=== PATIENT | male | born 1945 | race Caucasian/White ===

== ENCOUNTER 2021-12-21 11:42 | Emergency (ER) | payer OTHER ==
--- OUTSIDE RECORDS SUMMARY | 2021-12-21 11:49 | XMS REPORT | Continuity of Care Document ---
:1945 Author Organization [facility] t Address [address] [place] [address] Care Team Providers Name Role Phone Carson Gonzales Attending Clinician Unavailable Carson Gonzales Admitting Clinician Unavailable Physician, Primary or Family Admitting Clinician Unavailabl e Payers Payer Name Policy Type Policy Number Effective Date Expiration Date S ource Problems This patient has no known problems. Allergies, Adverse Reactions, Alerts Allergy Allergy Status Severity Reaction(s) Onset Inactive Treating Comm ents Source Name Type Date Date Clinician No Known DA Active U 2019-10 [facility]- [facility] 00:00: [address] No Known DA Active U 2019-10 [facility] 12-05 [facility] 00:00: [address] No Known DA Active U [facility]- [facility] 00[facility]00: [facility] No Known DA Active U [facility]- [facility] 00:00: [facility] Medications This patient has no known medications. Procedures Procedure Date / Time Performed Performing Clinician [facility] jose roberto [id number] 2020-10-07 00:00:00 GEORGIE.Magalis [facility] Or [facility] Encounters Start End Encounter Admission Attending Care Care Encounter Source Date/Time Date/Time Type Type Clinicians Facility Department ID 2020-10-07 Inpatient Rina NelsonTO ADMI [id number] [facility] 13:30:00 [id number] [facility] 2020-10-04 2020-10-04 Outpatient Rina GonzalesWU REFE [id number] [facility] 18:10:00 18:10:00 [id number] [facility] 2020-10-04 2020-10-04 Outpatient Rina Gonzales HCACL LABO [id number]- [facility] 18:03:00 18:03:00 [id number] [facility] 2020-10-04 2020-10-04 Outpatient Rina Gonzales HCATO SURG 805- [facility] 13:30:00 13:30:00 [id number] [facility] Results Test Description Test Time Test Comments Results Result [facility] e Comments - XR KNEE 1 OR 2 V 2020-10-10 LT 09:26:00 [facility] 1945 Sex: M Patient Name: KENY LAL Unit No: [id number] EXAMS: CPT CODE: [id number] XR KNEE 1 OR 2 V LT 17511 LEFT KNEE 2 VIEWS PORTABLE COMMENT: The patient is status post joint replacement which is articulating normally. at 0926 Reported and signed by: Omar Hall MD CC: Rina Gonzales MD Technologist: NALDO JOHNSON. RT(R) Transcribed D/ (925) Agnieszka [facility] NAME: KENY LAL [address] [facility] PHYS: PATAN.06 - Rina oGnzales : 1945 AGE: 75 SEX: M [place], [place] [address] LOC: YEvensO19 A PHONE #: [phone] EXAM DATE: 10/07/2020 STATUS: DIS IN FAX #: [phone] RAD #: D/C DT 10/07/2020 PAGE 1 Signed Report Patient Name: KENY LAL Unit No: [id number] EXAMS: CPT CODE: [id number] XR KNEE 1 [place] 2 [place] [address] <Continued> Orig Print D/T: S: 10/10/2020 (0929) [facility] NAME: KENY LAL [address] [facility] PHYS: PATAN.06 - Gonzales,Rina Byrd : 1945 AGE: 75 SEX: M [place], [place] [address] LOC: Y.O19 A PHONE #: [phone] EXAM DATE: 10/07/2020 STATUS: DIS IN FAX #: [phone] RAD #: D/C DT 10/07/2020 PAGE 2 Signed Report GLUBED 2020-10-07 10:02:00 Test Item Value Reference Range Interpretation Comme nts GLUBED (test code = GLUBED) 181 mg/dL 60-125 H Novel Coronavirus 2018 [id number] 07:39:00 Test Item Value Reference Range Interpretation Comments Novel Coronavirus Negative Negative Positive r esults are 2019 Inhouse (test indicativ e of the presence code = COVNONPUI) ofSARS-CoV -2 RNA, clinical correlation wit h patient historyand othe r diagnostic info rmation is necessary to determinepatien t infection status. Positiv e results do not rule out bacterial infection or co -infection with other viru ses. Negative result s do not preclude SARS-C oV-2 infection andsh ould not be used as the tony e basis for patient managementdecis ions. Negative result s must be combined with otherclinical observations, p atient history, and epidemiological information . Detection of SARS-CoV-2 RNA may be affe cted bysample collec tion methods, storag e conditions, and /or stageof infection. Daja l RNA mutations, vacc inations, antiviraltherap eutics, antibiotics, chemotherapeuti c orimmunosuppres martin drugs have not been e valuated for effectson d etection. Results are for the identification of SARS-CoV-2 RNA usingthe Duncan M2000 Sy stem under the FDA Emergen cy UseAuthorizatio n. The testing is perf ormed by personneltraine d in the procedures for the Duncan M2000 molecular diagnostic SARS-CoV-2 assa y in vitro. SPECIMEN COMMENT: NNovel Coronavirus 2019 [id number] 07:39:00 Test Item Value Reference Range Interpretation Comments Novel Coronavirus Negative Negative Positive r esults are 2019 Inhouse (test indicativ e of the presence code = COVNONPUI) ofSARS-CoV -2 RNA, clinical correlation wit h patient historyand othe r diagnostic info rmation is necessary to determinepatien t infection status. Positiv e results do not rule out bacterial infection or co -infection with other viru ses. Negative result s do not preclude SARS-C oV-2 infection andsh ould not be used as the tony e basis for patient managementdecis ions. Negative result s must be combined with otherclinical observations, p atient history, and epidemiological information . Detection of SARS-CoV-2 RNA may be affe cted bysample collec tion methods, storag e conditions, and /or stageof infection. Daja l RNA mutations, vacc inations, antiviraltherap eutics, antibiotics, chemotherapeuti c orimmunosuppres martin drugs have not been e valuated for effectson d etection. Results are for the identification of SARS-CoV-2 RNA usingthe Duncan M2000 Sy stem under the FDA Emergen cy UseAuthorizatio n. The testing is perf ormed by personneltraine d in the procedures for the Duncan M2000 molecular diagnostic SARS-CoV-2 assa y in vitro. SPECIMEN COMMENT: NGLYCOSYLATED HEMOGLOBIN (HA1C)2020-10-04 20:13:00 Test Item Value Reference Range Interpretation Comments GLYCOSYLATED 8.0 % 4.8-5.9 H Any condition t hat shortens HEMOGLOBIN (HA1C) erythocyte survival or (test code = GLYHGB) decreas esmean erythrocyte age (e.g., frandy very from acute blood los s,hemolytic anemai) will fa lsely lower HGBA1c resultsr egardless of the method used . HGBA1c results frompat ients with HbSS, HbCC and HbSc must be interpreted wit hcaution given the patho logical processes, incl uding anemia,increase d red cell turnover, trans fusion requirements, t hatadversely impact HGBA1c a s a marker of long-term glycemiccontrol . Alternative for ms of testing such as fructosaminesho uld be considered for these patients.Any co ndition that shortens erytho cyte survival or dec reasesmean erythrocyte age (e.g., recovery from a cute blood loss,hemolytic anemia) will falsely lower H GBA1c resultsregardle ss of the method used. H GBA1c results from maria isabel wood HbSS, HbCC, and HbSc must be interpreted with cautiongiven th e pathological pr ocesses, including anemi a,increased red cell turnov er, transfusion req uirements, thatadversely i mpact HGBA1c as a marker of long-term glycemiccontrol . Alternative for ms of testing such as fructosaminesho uld be considered for these patients.DONE A T: [facility] [id number] [place] [id number] GLYCOSYLATED HEMOGLOBIN (HA1C)2020-10-04 20:12:00 Test Item Value Reference Range Interpretation Comments GLYCOSYLATED 8.0 % 4.8-5.9 H Any condition t hat shortens HEMOGLOBIN (HA1C) erythocyte survival or (test code = GLYHGB) decreas esmean erythrocyte age (e.g., frandy very from acute blood los s,hemolytic anemia) will fa lsely lower HGBA1c resultsr egardless of the method used . HGBA1c results from maria isabel wood HbSS, HbCC, and HbSc must be interpreted with cautiongiven th e pathological pr ocesses, including anemi a,increased red cell turnov er, transfusion req uirements, thatadversely i mpact HGBA1c as a marker of long-term glycemiccontrol . Alternative for ms of testing such as fructosaminesho uld be considered for these patients. COMPREHENSIVE METABOLIC [id number] 16:22:00 Test Item Value Reference Range Interpretation Comments SODIUM (test code = 136 mmol/L 136-145 N NA) POTASSIUM (test code = 4.4 mmol/L 3.5-5.1 N K) CHLORIDE (test code = 100.0 mmol/L 98-107 N CL) CARBON DIOXIDE (test 26.5 mmol/L 21-32 N code = CO2) GLUCOSE (test code = 226 mg/dL 70-110 H GLU) BLOOD UREA NITROGEN 21 mg/dL 7-18 H (test code = BUN) GLOMERULAR FILTRATION 54.3 >60 Unit o f measure: RATE (test code = GFR) mL/mi n/1.73 [id number] Range:Healthy Adults >90 mL/min/1.73 m2 For Chronic Kidney Disease: St age II Mild Decrease in GFR 60-90 St age III Moderate Decrease in GFR 30-59 Stage IV Severe Decre ase in GFR 15- 29 Stage V Kidney Failure <15 CREATININE (test code 1.29 mg/dL 0.55-1.30 N = CREAT) TOTAL PROTEIN (test 7.6 g/dL 6.4-8.2 N code = PROT) ALBUMIN (test code = 3.3 g/dL 3.4-5.0 L ALB) GLOBULIN (test code = 4.3 g/dL 2.2-4.2 H GLOB) ALBUMIN/GLOBULIN RATIO 0.8 0.7-2.0 N (test code = A/G) CALCIUM (test code = 8.8 mg/dL 8.2-10.1 N CA) BILIRUBIN TOTAL (test 0.40 mg/dL 0.2-1.00 N code = BILT) SGOT/AST (test code = 28.0 U/L 15-37 N AST) SGPT/ALT (test code = 34.0 U/L 12-78 N Please note new ALT) normal range. ALKALINE PHOSPHATASE 148 U/L 46-116 H TOTAL (test code = ALKP) PROTHROMBIN [id number] 16:05:00 Test Item Value Reference Range Interpretation Comments PROTHROMBIN TIME 11.7 secs 10.1-12.5 N PATIENT (test code = PTP) INTERNATIONAL NORMAL 1.03 <2.0 RECOMME NDED THERAPEUTIC RATIO (test code = RANGE FOR ORAL INR) ANTICOAGULANTTR EATMENT: CONDI TION INRProphylaxis of venous thrombos is in 2.0 - 3.0 high-risk medic al or surgical patientsTreatme nt of venous thrombos is 2.0 - 3.0Prevention o f embolism 2.0 - 3.0Prevention o f recurrent embol ism, or 3.0 - 4. 5 patients with mechanical pros thetic intravascular v peña IS PATIENT ON ANTICOAGULANTS ? YLIST ANTICOAGULANT/ANTI PLT MEDICATION : AspirinHas Lab been notified if Patient is on Heparin Drip? NOTHROMBOPLASTIN TIME [id number] 16:05:00 Test Item Value Reference Range Interpretation Comments PTT ACTIVATED (test code = APTT) 30.0 secs 24.9-37.0 N IS PATIENT ON ANTICOAGULANTS ? YLIST ANTICOAGULANT/ANTI PLT MEDICATION : AspirinHas Lab been notified if Patient is on Heparin Drip? NOCBC W/AUTO DIFF 2020-10-04 15:54:00 Test Item Value Reference Range Interpretation Comments WHITE BLOOD CELL (test code = WBC) 6.9 K/mm3 5.7-10.5 N RED BLOOD CELL (test code = RBC) 4.80 M/mm3 4.2-5.4 N HEMOGLOBIN (test code = HGB) 13.3 g/dL 12-16 N HEMATOCRIT (test code = HCT) 40.2 % 37-47 N MEAN CELL VOLUME (test code = MCV) 84 fL 80-98 N MEAN CELL HGB (test code = MCH) 27.7 pg 27-34 N MEAN CELL HGB CONCENTRATION (test 33.1 g/dL 30.8-34.1 N code = MCHC) RED CELL DISTRIBUTION WIDTH (test 14.6 % 11-16 N code = RDW) PLT (test code = PLT) 281 K/mm3 130-400 N MEAN PLATELET VOLUME (test code = 10.5 fL 8.9-12.1 N MPV) NEUTROPHIL % (test code = NT%) 69.5 % 45-70 N LYMPHOCYTE % (test code = LY%) 13.4 % 20-40 L MONOCYTE % (test code = MO%) 9.8 % 3-10 N EOSINOPHIL % (test code = EO%) 6.1 % 1-5 H BASOPHIL % (test code = BA%) 0.9 % 0.0-1.1 N NEUTROPHIL # (test code = NT#) 4.78 K/mm3 2.00-7.50 N LYMPHOCYTE # (test code = LY#) 0.92 K/mm3 1.50-4.00 L MONOCYTE # (test code = MO#) 0.67 K/mm3 0.2-0.8 N EOSINOPHIL # (test code = EO#) 0.42 K/mm3 0.04-0.4 H BASOPHIL # (test code = BA#) 0.06 K/mm3 0.02-0.10 N MANUAL DIFF REQUIRED (test code = NO MANUAL DIFF MDIFF) NUCLEATED RED BLOOD CELL (test 0 % 0-0 N code = NRBC)
[2021-12-21] MEDS ORDERED: NA CHLORIDE 0.9% 1,000 ML ONE (13:39)
[2021-12-21 13:58] LABS: Absolute Lymphocytes (CBC) 0.6 K/uL (0.7-4.9); Lymphocytes % 5.9 % (15.3-44.8); MPV 7.4 fL (7.6-11.3); RBC Red Blood Cell Count 4.39 M/uL (4.33-5.43)
[2021-12-21 14:06] LABS: Protime INR 1.11
[2021-12-21 14:09] LABS: BUN Blood Urea Nitrogen 37 mg/dL (7-18); Bicarbonate 24 mmol/L (21-32); Glucose Level 196 mg/dL (74-106); Potassium 3.7 mmol/L (3.5-5.1); Sodium Level 135 mmol/L (136-145)
[2021-12-21 14:28] LABS: Urine Blood Negative (Negative); Urine Glucose 3+ (Negative); Urine Protein Negative (Negative); Urine Specific Gravity 1.015 (1.005-1.030)
--- NOTE | 2021-12-21 14:47 | RAD REPORT ---
EXAM DESCRIPTION: US - CP - 12/21/2021 2:00 pm CLINICAL HISTORY: DIZZINESS COMPARISON: No comparisons TECHNIQUE: Real-time sonographic evaluation of bilateral carotid and vertebral systems was performed . [place]banks scale and Doppler interrogation were performed with waveform tracing bilaterally. FINDINGS: Normal high resistance waveforms are noted in both external carotid arteries. The common c arotid arteries and internal carotid arteries show normal low resistance waveforms. Calcified plaquing changes are present in each carotid bulb without visual evidence for significant l uminal narrowing. Peak systolic and end diastolic velocity values and the ICA/CCA ratios are in the n on-hemodynamically significant range. Antegrade flow seen in both vertebral arteries. Velocity values and ratios were recorded and are retained in the patient's imaging records. IMPRESSION: Bilateral carotid bulb calcified plaquing changes without visual evidence for significan t stenosis. Velocity values and ratios also indicate no significant degree of stenosis.
[2021-12-21 15:01] LABS: ALT/SGPT 56 U/L (12-78); AST/SGOT 38 U/L (15-37); Albumin 2.7 g/dL (3.4-5.0); Alkaline Phosphatase 202 U/L (45-117); Bilirubin Total 0.4 mg/dL (0.2-1.0); Lipase 116 U/L (73-393); Magnesium 1.9 mg/dL (1.8-2.4); NT PRO-BNP 65 pg/mL (<450); Protein, Total 7.3 g/dL (6.4-8.2)
[2021-12-21 15:03] LABS: Bilirubin Direct < 0.1 mg/dL (0-0.2)
--- NOTE | 2021-12-21 15:18 | RAD REPORT ---
EXAM DESCRIPTION: RAD - Chest Single View - 12/21/2021 2:31 pm CLINICAL HISTORY: COUGH COMPARISON: Portable January 2017 TECHNIQUE: AP portable chest image was obtained 12/21/2021 2:31 pm . FINDINGS: No consolidation or mass. Interstitial markings are fractionally increased in the right ba se. Differential is minimal and this could be progressive fibrotic change. A minimal right base inter stitial infiltrate is possible and correlation is needed with any exam findings localizing to the bas e. No significant failure or volume overload. Heart and vasculature are normal. No measurable pleural effusion and no pneumothorax. No acute bony abnormality seen. No acute aortic findings suspected. IMPRESSION: Slight increase in interstitial stranding in the right base compared to 2017. Minimal interstitial infiltrate rather than progressive fibrosis would be possible and can be correla shellie with exam findings at the right base.
--- NOTE | 2021-12-21 16:12 | ER ---
Nurse's Notes [facility] Name: Dion Alfonso Age: 76 yrs Sex: Male : 1945 Arrival Date: 12/21/2021 Time: 11:47 Bed 20 Private MD: Diagnosis: Weakness;Type 2 diabetes mellitus with hyperglycemia;Dehydration;Unspecified kidney failure-prerenal , insufficency Presentation: 12/21 11:47 Chief complaint: Patient states: pt present to ED reporting weakness, low blood salomon pressure, low blood sugar. Coronavirus screen: Vaccine status: Patient reports receiving the 2nd dose of the covid vaccine. Ebola Screen: Patient denies travel to an Ebola-affected area in the 21 days before illness onset. Initial Sepsis Screen: Does the patient meet any 2 criteria? No. Patient's initial sepsis screen is negative. Does the patient have a suspected source of infection? No. Patient's initial sepsis screen is negative. Risk Assessment: Do you want to hurt yourself or someone else?. Onset of symptoms was December 21, 2021. 11:47 Method Of Arrival: EMS: [facility] 11:47 Acuity: RG 3 salomon Triage Assessment: 11:50 General: Appears in no apparent distress. Behavior is calm, cooperative. Pain: Denies salomon pain. Historical: - Allergies: 11:50 No Known Allergies; salomon - Home Meds: 11:50 aspirin 81 mg Oral tab [Active]; losartan 100 mg oral tab [Active]; simvastatin 80 mg salomon Oral tab [Active]; metformin 850 mg Oral tab 3 times per day [Active]; glipizide 10 mg Oral tab 2 times per day [Active]; oxybutynin chloride 5 mg Oral tr24 1 tab once daily [Active]; gabapentin 300 mg oral cap 1 cap 3 times per day [Active]; tamsulosin 0.4 mg oral cap 1 cap once daily [Active]; budesonide 180 mcg/actuation inhalation aepb 1 puff 2 times per day [Active]; - PMHx: 11:50 Diabetes - NIDDM; Hypertension; salomon - Immunization history:: Adult Immunizations up to date. - Social history:: Smoking status: Patient denies any tobacco usage or history of. - Family history:: not pertinent. Screenin:59 Abuse screen: Denies threats or abuse. Denies injuries from another. Nutritional salomon screening: No deficits noted. Tuberculosis screening: No symptoms or risk factors identified. Fall Risk IV access (20 points). Assessment: 11:59 General: Appears in no apparent distress. Behavior is calm, cooperative. Pain: Denies salomon pain. Cardiovascular: Reports fatigue. Musculoskeletal: Reports weakness in right arm, left arm, right leg and left leg. Vital Signs: 11:47 BP 98 / 53; Pulse 77; Resp 18; Temp 97.4; Pulse Ox 98% ; Weight 99.79 kg; Height 5 ft. salomon 10 in. (177.80 cm); 12:56 BP 103 / 61; Pulse 73; Resp 18; Pulse Ox 95% on R/A; salomon 14:10 BP 124 / 74; Pulse 68; Resp 18; Pulse Ox 98% on R/A; salomon 15:58 BP 123 / 74; Pulse 70; Resp 18; Pulse Ox 96% on R/A; salomon 16:19 BP 135 / 77 Supine; Pulse 79; Resp 18; Pulse Ox 99% on R/A; salomon 16:19 BP 156 / 76 Sitting; Pulse 89; Resp 18; Pulse Ox 99% on R/A; salomon 16:19 BP 153 / 74 Standing; Pulse 87; Resp 18; Pulse Ox 96% on R/A; salomon 11:47 Body Mass Index 31.57 (99.79 kg, 177.80 cm) salomon ED Course: 11:47 Patient arrived in ED. salomon 11:50 Triage completed. salomon 11:55 Harsha Woodruff MD is Attending Physician. [facility] 11:59 Bed in low position. salomon 11:59 No provider procedures requiring assistance completed. Inserted saline lock: 20 gauge salomon in left forearm, using aseptic technique. 12:00 Arm band placed on right wrist. salomon 13:46 Basic Metabolic Panel Sent. salomon 13:46 CBC with Diff Sent. salomon 13:46 Magnesium Sent. salomon 13:46 LFT's Sent. salomon 13:46 NT PRO-BNP Sent. salomon 13:46 PT-INR Sent. salomon 13:46 Troponin HS Sent. salomon 14:00 US Carotid Artery Bilateral In Process Unspecified. EDMS 14:31 XRAY Chest (1 view) In Process Unspecified. EDMS 16:10 Flo Crane MD is Referral Physician. quirino 16:26 CT Stone Protocol In Process Unspecified. EDMS 17:21 IV discontinued, intact, Pressure dressing applied. salomon Administered Medications: 13:45 Drug: NS 0.9% 1000 ml Route: IV; Rate: 1 bolus; Site: left forearm; salomon Outcome: 16:12 Discharge ordered by . quirino 17:21 Discharged to home salomon 17:21 Condition: good 17:21 Discharge instructions given to patient, family. 17:21 Prescriptions given X 1. 17:22 Patient left the ED. salomon Signatures: Dispatcher [employer] EDMS Harsha Woodruff MD MD cha Au-Stager, Heather, RN RN salomon
--- NOTE | 2021-12-21 16:12 | EDPHYS ---
Physician Documentation [facility] Name: Dion Alfonso Age: 76 yrs Sex: Male : 1945 Arrival Date: 12/21/2021 Time: 11:47 Bed 20 Private MD: ED Physician Harsha Woodruff HPI: 12/21 13:23 This 76 yrs old Male presents to ER via EMS with complaints of dizzy at work, quirino low bp. 13:23 weak, dizzy , low bp at work. The patient presents with dizziness, generalized quirino weakness. Onset: The symptoms/episode began/occurred this morning. Context: occurred at work. Modifying factors: The symptoms are alleviated by lying down, the symptoms are aggravated by standing up. Associated signs and symptoms: The patient has no apparent associated signs or symptoms. Severity of symptoms: At their worst the symptoms were mild in the emergency department the symptoms are unchanged. Onset: The symptoms/episode began/occurred just prior to arrival. Patient's baseline: Neuro: alert and fully oriented. Historical: - Allergies: 11:50 No Known Allergies; salomon - Home Meds: 11:50 aspirin 81 mg Oral tab [Active]; losartan 100 mg oral tab [Active]; simvastatin 80 mg salomon Oral tab [Active]; metformin 850 mg Oral tab 3 times per day [Active]; glipizide 10 mg Oral tab 2 times per day [Active]; oxybutynin chloride 5 mg Oral tr24 1 tab once daily [Active]; gabapentin 300 mg oral cap 1 cap 3 times per day [Active]; tamsulosin 0.4 mg oral cap 1 cap once daily [Active]; budesonide 180 mcg/actuation inhalation aepb 1 puff 2 times per day [Active]; - PMHx: 11:50 Diabetes - NIDDM; Hypertension; salomon - Immunization history:: Adult Immunizations up to date. - Social history:: Smoking status: Patient denies any tobacco usage or history of. - Family history:: not pertinent. ROS: 13:23 Constitutional: Negative for fever, chills, and weight loss, Eyes: Negative for injury, quirino pain, redness, and discharge, ENT: Negative for injury, pain, and discharge, Neck: Negative for injury, pain, and swelling, Cardiovascular: Negative for chest pain, palpitations, and edema, Respiratory: Negative for shortness of breath, cough, wheezing, and pleuritic chest pain, Abdomen/GI: Negative for abdominal pain, nausea, vomiting, diarrhea, and constipation, Back: Negative for injury and pain, : Negative for injury, bleeding, discharge, and swelling, MS/Extremity: Negative for injury and deformity, Skin: Negative for injury, rash, and discoloration, Psych: Negative for depression, anxiety, suicide ideation, homicidal ideation, and hallucinations, Allergy/Immunology: Negative for hives, rash, and allergies, Endocrine: Negative for neck swelling, polydipsia, polyuria, polyphagia, and marked weight changes, Hematologic/Lymphatic: Negative for swollen nodes, abnormal bleeding, and unusual bruising. 13:23 Neuro: Positive for dizziness, near syncope, weakness. Exam: 13:23 Constitutional: This is a well developed, well nourished patient who is awake, alert, quirino and in no acute distress. Head/Face: Normocephalic, atraumatic. Eyes: Pupils equal round and reactive to light, extra-ocular motions intact. Lids and lashes normal. Conjunctiva and sclera are non-icteric and not injected. Cornea within normal limits. Periorbital areas with no swelling, redness, or edema. ENT: Nares patent. No nasal discharge, no septal abnormalities noted. Tympanic membranes are normal and external auditory canals are clear. Oropharynx with no redness, swelling, or masses, exudates, or evidence of obstruction, uvula midline. Mucous membranes moist. Neck: Trachea midline, no thyromegaly or masses palpated, and no cervical lymphadenopathy. Supple, full range of motion without nuchal rigidity, or vertebral point tenderness. No Meningismus. Chest/axilla: Normal chest wall appearance and motion. Nontender with no deformity. No lesions are appreciated. Cardiovascular: Regular rate and rhythm with a normal S1 and S2. No gallops, murmurs, or rubs. Normal PMI, no JVD. No pulse deficits. Respiratory: Lungs have equal breath sounds bilaterally, clear to auscultation and percussion. No rales, rhonchi or wheezes noted. No increased work of breathing, no retractions or nasal flaring. Abdomen/GI: Soft, non-tender, with normal bowel sounds. No distension or tympany. No guarding or rebound. No evidence of tenderness throughout. Back: No spinal tenderness. No costovertebral tenderness. Full range of motion. Male : Normal genitalia with no discharge or lesions. Skin: Warm, dry with normal turgor. Normal color with no rashes, no lesions, and no evidence of cellulitis. MS/ Extremity: Pulses equal, no cyanosis. Neurovascular intact. Full, normal range of motion. Neuro: Awake and alert, GCS 15, oriented to person, place, time, and situation. Cranial nerves II-XII grossly intact. Motor strength 5/5 in all extremities. Sensory grossly intact. Cerebellar exam normal. Normal gait. Psych: Awake, alert, with orientation to person, place and time. Behavior, mood, and affect are within normal limits. 16:50 Abdomen/GI: Inspection: abdomen appears normal, Bowel sounds: normal, Palpation: quirino abdomen is soft and non-tender, Rectal exam: Stool: guaiac negative, hemorrhoid(s), are not appreciated, mass, is not appreciated, swelling, is not appreciated, tenderness, is not appreciated, fecal impaction, is not appreciated, Liver: no appreciated palpable abnormalities, Hernia: not appreciated. Vital Signs: 11:47 BP 98 / 53; Pulse 77; Resp 18; Temp 97.4; Pulse Ox 98% ; Weight 99.79 kg; Height 5 ft. salomon 10 in. (177.80 cm); 12:56 BP 103 / 61; Pulse 73; Resp 18; Pulse Ox 95% on R/A; salomon 14:10 BP 124 / 74; Pulse 68; Resp 18; Pulse Ox 98% on R/A; salomon 15:58 BP 123 / 74; Pulse 70; Resp 18; Pulse Ox 96% on R/A; salomon 16:19 BP 135 / 77 Supine; Pulse 79; Resp 18; Pulse Ox 99% on R/A; salomon 16:19 BP 156 / 76 Sitting; Pulse 89; Resp 18; Pulse Ox 99% on R/A; salomon 16:19 BP 153 / 74 Standing; Pulse 87; Resp 18; Pulse Ox 96% on R/A; salomon 11:47 Body Mass Index 31.57 (99.79 kg, 177.80 cm) salomon MDM: 11:55 Patient medically screened. quirino 13:27 Differential diagnosis: cardiac arrhythmia, CVA, generalized weakness, hypovolemia, quirino idiopathic dizziness. Data reviewed: vital signs, nurses notes, lab test result(s), EKG, radiologic studies, CT scan, plain films. Data interpreted: monitoring coordinator: rate is 73 beats/min, rhythm is regular, Pulse oximetry: on room air is 95 %. Test interpretation: by ED physician or midlevel provider: ECG, plain radiologic studies. Counseling: I had a detailed discussion with the patient and/or guardian regarding: the historical points, exam findings, and any diagnostic results supporting the discharge/admit diagnosis, lab results, radiology results. 12/21 13:17 Order name: Basic Metabolic Panel; Complete Time: 16:02 [facility] 12/21 13:17 Order name: CBC with Diff; Complete Time: 14:50 [facility] 12/21 13:17 Order name: LFT's; Complete Time: 16:02 [facility] 12/21 13:17 Order name: Magnesium; Complete Time: 16:02 [facility] 12/21 13:17 Order name: NT PRO-BNP; Complete Time: 16:02 [facility] 12/21 13:17 Order name: PT-INR; Complete Time: 14:50 [facility] 12/21 13:17 Order name: Troponin HS; Complete Time: 16:02 [facility] 12/21 13:17 Order name: XRAY Chest (1 view); Complete Time: 16:02 [facility] 12/21 13:17 Order name: EKG; Complete Time: 13:18 [facility] 12/21 13:17 Order name: Lipase; Complete Time: 16:02 [facility] 12/21 13:17 Order name: US Carotid Artery Bilateral; Complete Time: 14:50 [facility] 12/21 14:28 Order name: Urine Dipstick-Ancillary; Complete Time: 14:50 [facility] 12/21 16:10 Order name: CT Stone Protocol [facility] 12/21 13:17 Order name: Cardiac monitoring; Complete Time: 13:45 [facility] 12/21 13:17 Order name: EKG - Nurse/Tech; Complete Time: 14:27 quirino 12/21 13:17 Order name: IV Saline Lock; Complete Time: 13:45 quirino 12/21 13:17 Order name: Labs collected and sent; Complete Time: 13:46 quirino 12/21 13:17 Order name: O2 Per Protocol; Complete Time: 13:46 quirino 12/21 13:17 Order name: O2 Sat Monitoring; Complete Time: 13:46 [facility] 12/21 13:17 Order name: Urine Dipstick-Ancillary (obtain specimen); Complete Time: 14:27 [facility] 12/21 16:10 Order name: Orthostatics [facility] 12/21 16:10 Order name: PO challenge quirino Administered Medications: 13:45 Drug: NS 0.9% 1000 ml Route: IV; Rate: 1 bolus; Site: left forearm; salomon Disposition Summary: 12/21/21 16:12 Discharge Ordered Location: Home quirino Problem: new quirino Symptoms: have improved quirino Condition: Stable quirino Diagnosis - Weakness quirino - Type 2 diabetes mellitus with hyperglycemia quirino - Dehydration quirino - Unspecified kidney failure - prerenal , insufficency quirino Followup: quirino - With: Private Physician - When: 2 - 3 days - Reason: Recheck today's complaints, Continuance of care, Re-evaluation by your physician Followup: quirino - With: Flo Crane MD - When: 2 - 3 days - Reason: Recheck today's complaints, Continuance of care, Re-evaluation by your physician Discharge Instructions: - Discharge Summary Sheet quirino - Dehydration, Elderly quirino - Dehydration, Adult quirino - Type 2 Diabetes Mellitus, Diagnosis, Adult quirino - Hyperglycemia quirino - Near-Syncope quirino - Weakness quirino - Fatigue quirino - Weakness, Mibh-pu-Lcit [facility] Forms: - Medication Reconciliation Form [facility] - Thank You Letter quirino - Antibiotic Education quirino - Prescription Opioid Use [facility] - Work release form salomon Prescriptions: - tamsulosin 0.4 mg Oral capsule - take 1 capsule by ORAL route At bedtime 1/2 hour following the same meal each quirino day; 30 capsule; Refills: 0, Product Selection Permitted Signatures: Dispatcher [employer] Harsha Caban MD MD [facility] Sybil Sierra RN JESUS
--- NOTE | 2021-12-21 17:02 | RAD REPORT ---
EXAM DESCRIPTION: CT - Stone Protocol - 12/21/2021 4:27 pm CLINICAL HISTORY: FLANK PAIN Abdominal pain COMPARISON: Abdomen Pelvis Wo Contrast dated 02/13/2017 TECHNIQUE: Axial [address] imaging of the abdomen and pelvis was performed without IV contrast. No IV contrast was given because of allergy, abnormal renal function, patient refusal or physician re quest. No oral contrast administered. All CT scans are performed using dose optimization technique as appropriate and may include automated exposure control or mA/KV adjustment according to patient size. FINDINGS: Scarring changes are present in each lung base, more so on the right. A 5 mm noncalcified nodule posterior right lower lung field has not change from 2017. Liver is prominent in size with no overall size change since 2017. Subtle nodularity of the liver cap jose is noted. No focal lesions seen on noncontrast imaging. Spleen and pancreas show no suspicious f indings. A few punctate gallstones are seen along the dependent portion the gallbladder. No wall thic kening or edema suspected. No biliary tree abnormality identified. No hydronephrosis or suspicious renal mass. No obstructing or nonobstructing calculi. Mild bilateral perinephric stranding matches comparison. No significant adrenal finding. Isodense renal masses and p yelonephritis cannot be excluded in the absence of IV contrast. The urinary bladder is without signif icant finding. No dilated bowel loops or bowel wall thickening. Moderate stool volume present filling but not dilati ng the colon from cecum to sigmoid colon. Distal rectum is mostly decompressed. The appendix is brian l. No free air, free fluid or inflammatory stranding. No mass or bulky lymphadenopathy. Fatty inguina l canals match comparison. Disc and bone degenerative changes are present. No acute disc or bone finding. IMPRESSION: Non-contrast enhanced CT abdomen and pelvis imaging show no acute or emergent finding. Patient has minimal cholelithiasis without evidence for cholecystitis or biliary dilatation. No significant changes from 2017 Full assessment is limited is the absence of IV contrast.
[2021-12-21 18:38] VITALS: TEMP 97.4
[2021-12-21 18:42] VITALS: O2SAT 96
[2021-12-21 18:44] VITALS: BP 153/74
--- NOTE | 2021-12-22 11:32 | EKG ---
Test Date: 2021-12-21 Test Time: 14:29:59 Side Show Entertainer: TERI MEASUREMENT RESULTS: Intervals: Rate: 76 SD: 150 QRSD: 82 QT: 404 QTc: 454 Velva: P: 23 SD: 150 QRS: 60 T: 9 INTERPRETIVE STATEMENTS: Normal sinus rhythm Normal ECG Compared to ECG 02/14/2017 08:13:26 Sinus bradycardia no longer present Electronically Signed On 12-22-21 11:29:11 MOBILITY ARCHITECT MANAGER by Flo Crane
== END 2021-12-21 17:22 | disposition home or self-care (01) ==
LOC: ER 11:42
DX: E11.65 Type 2 diabetes mellitus with hyperglycemia (principal); E86.0 Dehydration; N19 Unspecified kidney failure; R53.1 Weakness; I10 Essential (primary) hypertension; Z79.82 Long term (current) use of aspirin
CPT/HCPCS: 93005; 85025; 80048; 36415; 83735; 85610; 80076; 81003; 84484; 83690; 83880; 76377; 74176; 71045; 93880; 99284; J7030

== ENCOUNTER 2021-12-24 12:05 | Emergency (ER) | payer OTHER ==
--- OUTSIDE RECORDS SUMMARY | 2021-12-24 12:08 | XMS REPORT | Continuity of Care Document ---
:1945 Author Organization [facility] t Address [address] [place] [address] Care Team Providers Name Role Phone Carson [...] DA Active U 2019-10 [facility]- [facility] 00:00: [address] No Known DA Active U 2019-10 [facility] 12-05 [facility] 00:00: [address] No Known DA Active U [facility]- [facility] No Known DA Active U [facility]- [facility] 00:00: [facility] Medications This patient has no known medications. Procedures Procedure Date / Time Performed Performing Clinician [facility] jose roberto [id number] 2020-10-07 00:00:00 GEORGIE.[facility] Encounters Start End Encounter Admission Attending Care Care Encounter Source Date/Time Date/Time Type Type Clinicians Facility Department ID 2020-10-07 Inpatient Rina NelsonTO ADMI [id number] [facility] 13:30:00 [id number] 2020-10-04 2020-10-04 Outpatient Rina GonzalesWU REFE [id number] [facility] 18:10:00 18:10:00 [id number] [facility] 2020-10-04 2020-10-04 Outpatient Rina Gonzales HCACL LABO [id number] [facility] 18:03:00 18:03:00 [id number] [facility] 2020-10-04 2020-10-04 Outpatient Rina Gonzales HCATO SURG 805- [facility] 13:30:00 13:30:00 [id number] [facility] Results Test Description Test Time Test Comments Results Result [facility] e Comments - XR KNEE 1 OR 2 V 2020-10-10 LT 09:26:00 [facility] 1945 Sex: M Patient Name: KENY LAL Unit No: [id number] EXAMS: CPT CODE: [id number] XR KNEE 1 OR 2 [place] [id number] LEFT KNEE 2 VIEWS PORTABLE COMMENT: The patient is status post joint replacement which is articulating normally. at 0926 Reported and signed by: Omar Hall MD CC: Rina Gonzales MD Technologist: NALDO JOHNSON. RT(R) Transcribed D/ (925) Agnieszka [facility] NAME: KENY LAL [address] [facility] PHYS: PATAN.06 - Rina Gonzales : 1945 AGE: 75 SEX: M [place], [place] [address] LOC: YEvensO19 A PHONE #: [phone] EXAM DATE: 10/07/2020 STATUS: DIS IN FAX #: [phone] RAD #: D/C DT 10/07/2020 PAGE 1 Signed Report Patient Name: KENY LAL Unit No: [id number] EXAMS: CPT CODE: [id number] XR KNEE 1 OR 2 [place] [address] <Continued> Orig Print D/T: S: 10/10/2020 (0929) [facility] NAME: KENY LAL [address] [facility] PHYS: PATAN.06 - Gonzales,Rina Byrd : 1945 AGE: 75 SEX: M [place], [place] [address] LOC: Y.O19 A PHONE #: [phone] EXAM DATE: 10/07/2020 STATUS: DIS IN FAX #: [phone] RAD #: D/C DT 10/07/2020 PAGE 2 Signed Report GLUBED 2020-10-07 10:02:00 Test Item Value Reference Range Interpretation Comme nts GLUBED (test code = GLUBED) 181 mg/dL 60-125 H Novel Coronavirus 2018 [id number] 07:39:00 Test Item Value Reference Range Interpretation [...] in vitro. SPECIMEN COMMENT: NNovel Coronavirus 2019 [id number] 07:39:00 Test Item Value Reference Range Interpretation [...] be considered for these patients.DONE A T: [facility] [address] [facility] [address] [place] [id number] GLYCOSYLATED HEMOGLOBIN (HA1C)2020-10-04 20:12:00 Test Item Value [...] be considered for these patients. COMPREHENSIVE METABOLIC [id number] 16:22:00 Test Item Value Reference Range Interpretation [...] RATE (test code = GFR) mL/mi n/1.73 [id number] Range:Healthy Adults >90 mL/min/1.73 m2 For Chronic [...] H TOTAL (test code = ALKP) PROTHROMBIN [id number] 16:05:00 Test Item Value Reference Range Interpretation [...] Patient is on Heparin Drip? NOTHROMBOPLASTIN TIME [id number] 16:05:00 Test Item Value Reference Range Interpretation [...]
[2021-12-24 12:33] LABS: Absolute Lymphocytes (CBC) 0.6 K/uL (0.7-4.9); Hematocrit 39.9 % (39.6-49.0); Lymphocytes % 4.6 % (15.3-44.8); MPV 7.6 fL (7.6-11.3)
[2021-12-24 12:37] LABS: Protime INR 1.28
[2021-12-24 12:47] LABS: Potassium 3.9 mmol/L (3.5-5.1)
--- NOTE | 2021-12-24 12:54 | RAD REPORT ---
EXAM DESCRIPTION: RAD - Knee Right 3 View - 12/24/2021 12:47 pm CLINICAL HISTORY: Pain;Swelling, fall COMPARISON: No comparisons FINDINGS: No acute fractures identified. 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 No radiographic evidence for loosening. Bony hypertrophic remodeling seen along the medial margin med ial femoral condyle and the lateral tibial plateau. Joint effusion is present. Arterial tree calcific ations are present. Additional periarticular soft tissue calcifications noted. No foreign body. IMPRESSION: No fracture or acute bone process identifiable. No acute findings associated with the revision knee prosthesis. Small to moderate joint effusion.
[2021-12-24] MEDS ORDERED: MORPHINE 4 MG/ML SYR ONE (13:07)
[2021-12-24] MEDS ORDERED: LIDOCAINE 1% MPF 5 ML VIAL ONE (13:07)
[2021-12-24] MEDS ORDERED: NA CHLORIDE 0.9% 1,000 ML ONE (13:07)
[2021-12-24] MEDS ORDERED: ONDANSETRON 4 MG/2 ML VIAL ONE (13:07)
[2021-12-24] MEDS ORDERED: MORPHINE 2 MG/ML SYR ONE (13:10)
[2021-12-24 13:31] LABS: Blood Morphology Comment NOT SEEN (NOT SEEN); Platelet Estimate ADEQ; White Blood Cell Scan OK (OK)
--- NOTE | 2021-12-24 13:47 | RAD REPORT ---
EXAM DESCRIPTION: RAD - Pelvis - 12/24/2021 1:18 pm CLINICAL HISTORY: BLUNT TRAUMA COMPARISON: No comparisons TECHNIQUE: AP imaging of the pelvis was obtained. FINDINGS: No fracture or acute finding the bony pelvis. Mild, symmetric hip joint degenerative palomares es present. No femoral head or neck acute finding identifiable. Right femoral neck is not optimally v isualized. If the patient has localized right hip pain, dedicated films could be obtained. SI joint degenerative changes are present. Arterial calcifications are present. No suspicious soft tissue finding. IMPRESSION: No acute finding of the bony pelvis.
[2021-12-24 14:41] LABS: Body Fluid WBC 120470 /mm^3
[2021-12-24 14:42] LABS: Body Fluid Source SYNOVIAL; Color of fluid Yellow (COLORLESS)
[2021-12-24 14:43] LABS: Appearance TURBID (CLEAR)
[2021-12-24] MEDS ORDERED: INDOMETHACIN 25 MG CAP PO ONE (15:00)
[2021-12-24 15:54] LABS: Urine Blood 2+ (Negative); Urine Glucose 3+ (Negative); Urine Protein 2+ (Negative); Urine Specific Gravity 1.015 (1.005-1.030)
--- NOTE | 2021-12-24 16:56 | ER ---
Nurse's Notes [facility] Name: Dion Alfonso Age: 76 yrs Sex: Male : 1945 Arrival Date: 12/24/2021 Time: 12:08 Bed 13 Private MD: Diagnosis: Septic arthritis, right knee Presentation: 12/24 12:08 Chief complaint: Chief complaint: Patient states: Pt brought in by ems for fall that ic1 occurred x 2 weeks ago. States he noticed the swelling x 1 week ago and the pain has worsened. Coronavirus screen: Vaccine status: Patient reports receiving the 2nd dose of the covid vaccine. Ebola Screen: No symptoms or risks identified at this time. Initial Sepsis Screen: Does the patient meet any 2 criteria? No. Patient's initial sepsis screen is negative. Does the patient have a suspected source of infection? No. Patient's initial sepsis screen is negative. Risk Assessment: Do you want to hurt yourself or someone else? Patient reports no desire to harm self or others. Onset of symptoms. 12:08 Method Of Arrival: EMS: [facility] ic1 12:08 Acuity: RG 3 ic1 Triage Assessment: 12:09 General: Appears in no apparent distress. uncomfortable, Behavior is calm, cooperative. ic1 Pain: Complains of pain in medial aspect of right knee and right knee. EENT: No deficits noted. Neuro: No deficits noted. Cardiovascular: No deficits noted. Respiratory: No deficits noted. GI: No deficits noted. : No deficits noted. Derm: No deficits noted. Musculoskeletal: Reports pain in medial aspect of right knee and right knee since 2 weeks ago after falling. States he noticed some swelling x 1 week ago . Historical: - Allergies: 13:01 No Known Allergies; ic1 - Home Meds: 12:09 aspirin 81 mg Oral tab [Active]; budesonide 180 mcg/actuation inhalation aepb 1 puff 2 ic1 times per day [Active]; gabapentin 300 mg Oral cap 1 cap 3 times per day [Active]; glipizide 10 mg Oral tab 2 times per day [Active]; losartan 100 mg Oral tab [Active]; metformin 850 mg Oral tab 3 times per day [Active]; oxybutynin chloride 5 mg Oral tr24 1 tab once daily [Active]; simvastatin 80 mg Oral tab [Active]; tamsulosin 0.4 mg Oral cap 1 cap once daily [Active]; - PMHx: 12:09 Diabetes - NIDDM; Hypertension; ic1 - Immunization history:: Adult Immunizations up to date. - Social history:: Smoking status: Patient denies any tobacco usage or history of. - Family history:: not pertinent. - Hospitalizations: : No recent hospitalization is reported. Screenin:36 Abuse screen: Denies threats or abuse. Denies injuries from another. Nutritional ic1 screening: No deficits noted. Tuberculosis screening: No symptoms or risk factors identified. Fall Risk Fall in past 12 months (25 points). Secondary diagnosis (15 points) IV access (20 points). Ambulatory Aid- None/Bed Rest/Nurse Assist (0 pts). Gait- Weak (10 pts.). Mental Status- Oriented to own ability (0 pts). Total De La Garza Fall Scale indicates High Risk Score (45 or more points). Side Rails Up X 2 Placed Close to Nursing Station Frequent Obs/Assessments Occuring Family Present and informed to notify staff if the need to leave the bedside As available patient and family educated on Fall Prevention Program and Strategies. Assessment: 13:00 Reassessment: see triage. ic1 13:37 Reassessment: MD at bedside performing care. Pt tolerating. ic1 19:10 Reassessment: Report given by JESUS Guy to [facility] for transfer. lp1 Vital Signs: 12:08 BP 152 / 80; Pulse 87; Resp 18; Temp 98.9; Pulse Ox 98% on R/A; ic1 13:49 BP 144 / 68; Pulse 82; Resp 16; Pulse Ox 96% on R/A; ic1 15:11 BP 144 / 67; Pulse 82; Resp 18; Pulse Ox 100% on R/A; ic1 15:54 BP 146 / 85; Pulse 98; Resp 15; Pulse Ox 100% ; jl7 15:59 Temp 98.8(O); ic1 18:18 BP 114 / 59; Pulse 81; Resp 16; Temp 99.5; Pulse Ox 95% on R/A; ic1 ED Course: 12:08 Patient arrived in ED. ic1 12:08 Malena Patel RN is Primary Nurse. ic1 12:09 Triage completed. ic1 12:09 Wilfredo Davalos MD is Attending Physician. rn 12:09 Arm band placed on left wrist. ic1 12:23 Inserted saline lock: 20 gauge in right antecubital area, using aseptic technique. jh6 Blood collected. 12:47 XRAY Knee RIGHT 3 view In Process Unspecified. EDMS 13:18 XRAY Pelvis In Process Unspecified. EDMS 13:36 Patient has correct armband on for positive identification. Bed in low position. Call ic1 light in reach. Side rails up X2. 15:32 Pulse ox on. NIBP on. Warm blanket given. Head of bed elevated. Elevated. ic1 17:09 initiated a transfer with Sofya from the [facility] [place] in attempt to transfer eb patient to [facility] / They are requesting patient records to be faxed to [phone]. 17:14 initiated a transfer with Nitish Dubon from the [facility]/. eb 17:17 XRAY Chest (1 view) In Process Unspecified. EDMS 17:49 connected the hospitalist extension educator for [facility] with for patient transfer eb consultation. 17:52 administrative approval given Nitish Dubon/ patient has been accepted to [facility] 1623/ Dr. Parker. [facility] has accepted the patient in transfer/ report to be called to [phone]. 19:21 Primary Nurse role handed off by Malena Patel RN eb 19:30 No provider procedures requiring assistance completed. Patient transferred, IV remains vc1 in place. Administered Medications: 13:17 Drug: morphine 2 mg Route: IVP; Site: right antecubital; ic1 14:42 Follow up: Response: Pain is decreased ic1 13:17 Drug: Zofran (Ondansetron) 4 mg Route: IVP; Site: right antecubital; ic1 13:17 Drug: NS 0.9% 1000 ml Route: IV; Rate: 1000 ml; Site: right antecubital; ic1 13:17 Drug: Lidocaine (1 %) 1 vials {Note: injected into R knee by MD Anoop. .} Volume: 5 ic1 ml; Route: Infiltration; 15:18 Drug: Indomethacin 25 mg Route: PO; ic1 17:16 Dru mg of (Clindamycin 600 mg, NS 0.9% 50 ml) Route: IVPB; Infused Over: 30 mins; ic1 Site: right antecubital; 17:42 Dru mg of (LevaQUIN (levofloxacin) 750 mg, D5W 100 ml) Volume: 150 ml; Route: jl7 IVPB; Infused Over: 90 mins; Site: right antecubital; Outcome: 16:56 ER care complete, transfer ordered by . rn 18:37 Transferred by ground EMS to [facility], [facility], Transfer form completed. ic1 18:37 Condition: stable 18:37 Instructed on the need for transfer, Report called to JESUS Das. 19:31 Patient left the ED. vc1 Addendum: 12/27/2021 10:28 Addendum: Culture Results: Positive urine culture. Positive blood culture. Right knee a a5 body fluid. Pt was transferred to [facility], spoke to Gracie (pt's nurse) and results were faxed to Gracie. Signatures: Dispatcher [employer] EDMS Wilfredo Davalos MD MD rn Calderon, Audri, RN RN aa5 Natalya Marino RN RN lp1 Deric Bishop RN RN jl7 Shelley Reid Jennifer, RN RN jh6 Malena Patel RN RN ic1 Virginia Patterson RN RN vc1 Corrections: (The following items were deleted from the chart) 12/24 12:13 12:08 Chief complaint: ic1 ic1
--- NOTE | 2021-12-24 16:57 | EDPHYS ---
Physician Documentation [facility] Name: Dion Alfonso Age: 76 yrs Sex: Male : 1945 Arrival Date: 12/24/2021 Time: 12:08 Bed 13 Private MD: ED Physician Wilfredo Davalos HPI: 12/24 14:43 This 76 yrs old Male presents to ER via EMS with complaints of Fall Injury, Knee Pain. rn 14:43 Details of fall: The patient fell from an upright position, while walking. Onset: The rn symptoms/episode began/occurred 2 week(s) ago. Associated injuries: The patient sustained right knee. Severity of symptoms: At their worst the symptoms were moderate, in the emergency department the symptoms are unchanged. The patient has not experienced similar symptoms in the past. The patient has been recently seen at the [facility] Emergency Department. Pt reports fall from standing 2 weeks ago, did ok, felt like landed on right sided, knee hurt a bit but seemed to get better. 1 week ago right knee began to swell more and become more painful. Fell again today and couldn't get up because of right knee pain. No fever. + generalized weakness. No vomiting/diarrhea. No cough/sob. No chest pain. . Historical: - Allergies: 13:01 No Known Allergies; ic1 - Home Meds: 12:09 aspirin 81 mg Oral tab [Active]; budesonide 180 mcg/actuation inhalation aepb 1 puff 2 ic1 times per day [Active]; gabapentin 300 mg Oral cap 1 cap 3 times per day [Active]; glipizide 10 mg Oral tab 2 times per day [Active]; losartan 100 mg Oral tab [Active]; metformin 850 mg Oral tab 3 times per day [Active]; oxybutynin chloride 5 mg Oral tr24 1 tab once daily [Active]; simvastatin 80 mg Oral tab [Active]; tamsulosin 0.4 mg Oral cap 1 cap once daily [Active]; - PMHx: 12:09 Diabetes - NIDDM; Hypertension; ic1 - Immunization history:: Adult Immunizations up to date. - Social history:: Smoking status: Patient denies any tobacco usage or history of. - Family history:: not pertinent. - Hospitalizations: : No recent hospitalization is reported. ROS: 14:43 Constitutional: Negative for fever, chills, and weight loss, Eyes: Negative for injury, rn pain, redness, and discharge, Neck: Negative for injury, pain, and swelling, Cardiovascular: Negative for chest pain, palpitations, and edema, Respiratory: Negative for shortness of breath, cough, wheezing, and pleuritic chest pain, Abdomen/GI: Negative for abdominal pain, nausea, vomiting, diarrhea, and constipation, Back: Negative for injury and pain, : Negative for injury, bleeding, discharge, and swelling, MS/Extremity: + right knee pain and swelling Skin: Negative for injury, rash, and discoloration, Neuro: Negative for headache, numbness, tingling, and seizure. Exam: 14:43 Constitutional: This is a well developed, well nourished patient who is awake, alert, rn and in no acute distress. Head/Face: Normocephalic, atraumatic. Eyes: Periorbital areas with no swelling, redness, or edema. ENT: Dry MM Cardiovascular: Regular rate and rhythm. No pulse deficits. Respiratory: No increased work of breathing, no retractions or nasal flaring. Abdomen/GI: Soft, non-tender Skin: Warm, dry MS/ Extremity: Pulses equal, no cyanosis. + swelling and painful ROM right knee, + mild warmth bilateral knees. No erythema of right knee. No tenderness or painful ROM either hip. Neuro: Awake and alert, GCS 15, oriented to person, place, time, and situation. Cranial nerves II-XII grossly intact. Motor strength 5/5 in all extremities. Sensory grossly intact. Vital Signs: 12:08 BP 152 / 80; Pulse 87; Resp 18; Temp 98.9; Pulse Ox 98% on R/A; ic1 13:49 BP 144 / 68; Pulse 82; Resp 16; Pulse Ox 96% on R/A; ic1 15:11 BP 144 / 67; Pulse 82; Resp 18; Pulse Ox 100% on R/A; ic1 15:54 BP 146 / 85; Pulse 98; Resp 15; Pulse Ox 100% ; jl7 15:59 Temp 98.8(O); ic1 18:18 BP 114 / 59; Pulse 81; Resp 16; Temp 99.5; Pulse Ox 95% on R/A; ic1 MDM: 12:09 Patient medically screened. rn 16:53 ED course: Consulted with Dr. Quintana after gram stain showed gram+ cocci, told him rn septic arthritis, recommends transfer as he will not be able to wash out tonight patient already with knee replacement and we do not take care of that here. Recommends vancomycin/clindamycin/levafloxacin and transfer. . 17:52 Differential diagnosis: contusion, fracture, sprain, septic arthritis, sepsis, UTI,. rn Data reviewed: vital signs, nurses notes, lab test result(s), radiologic studies, plain films, and as a result, I will admit patient. Counseling: I had a detailed discussion with the patient and/or guardian regarding: the historical points, exam findings, and any diagnostic results supporting the discharge/admit diagnosis, lab results, radiology results, the need for further work-up and treatment in the hospital, the need to transfer to another facility, for higher level of care. Response to treatment: the patient's symptoms have mildly improved after treatment, and as a result, I will admit patient. ED course: Accepted for transfer to [facility] by hospitalist Dr. Parker. 03 12:11 Order name: CBC with Diff; Complete Time: 13:58 12/24 12:11 Order name: Basic Metabolic Panel; Complete Time: 12:54 12/24 12:11 Order name: Protime (+inr); Complete Time: 12:54 12/24 12:11 Order name: Ptt, Activated; Complete Time: 12:54 12/24 12:34 Order name: CBC Smear Scan; Complete Time: 13:58 EDMT 12/24 13:34 Order name: Body Fluid Culture EDMT 12/24 13:34 Order name: Body Fluid Cell Count; Complete Time: 15:42 EDMT 12/24 13:39 Order name: Crystals, Fluid; Complete Time: 14:12 rn 12/24 15:51 Order name: Glucose, Ancillary Testing; Complete Time: 16:43 EDMT 12/24 15:54 Order name: Urine Dipstick-Ancillary; Complete Time: 16:43 EDMT 12/24 15:57 Order name: Blood Culture Adult (2) rn 12/24 15:57 Order name: Procalcitonin; Complete Time: 17:48 rn 12/24 15:57 Order name: Lactate; Complete Time: 17:48 rn 12/24 12:11 Order name: XRAY Knee RIGHT 3 view; Complete Time: 12:54 rn 12/24 12:11 Order name: IV Start; Complete Time: 12:23 rn 12/24 12:54 Order name: XRAY Pelvis; Complete Time: 13:58 rn 12/24 15:57 Order name: XRAY Chest (1 view); Complete Time: 18:31 rn 12/24 15:57 Order name: Urine Culture rn 12/24 15:57 Order name: Urine Microscopic Only; Complete Time: 17:48 rn 12/24 15:57 Order name: Urine Dipstick-Ancillary (obtain specimen) rn 12/24 16:59 Order name: SARS-COV-2 RT PCR (Document "Date of Onset" if Symptomatic); Complete Time: eb 18:31 Administered Medications: 13:17 Drug: morphine 2 mg Route: IVP; Site: right antecubital; ic1 14:42 Follow up: Response: Pain is decreased ic1 13:17 Drug: Zofran (Ondansetron) 4 mg Route: IVP; Site: right antecubital; ic1 13:17 Drug: NS 0.9% 1000 ml Route: IV; Rate: 1000 ml; Site: right antecubital; ic1 13:17 Drug: Lidocaine (1 %) 1 vials {Note: injected into R knee by MD. Anoop .} Volume: 5 ic1 ml; Route: Infiltration; 15:18 Drug: Indomethacin 25 mg Route: PO; ic1 17:16 Dru mg of (Clindamycin 600 mg, NS 0.9% 50 ml) Route: IVPB; Infused Over: 30 mins; ic1 Site: right antecubital; 17:42 Dru mg of (LevaQUIN (levofloxacin) 750 mg, D5W 100 ml) Volume: 150 ml; Route: jl7 IVPB; Infused Over: 90 mins; Site: right antecubital; Disposition Summary: 12/24/21 16:56 Transfer Ordered Transfer Location: [facility] rn Reason: Higher level of care rn Condition: Stable rn Problem: new rn Symptoms: have improved rn Accepting Physician: Dr. Parker(12/24/21 19:31) vc1 Diagnosis - Septic arthritis, right knee rn Forms: - Medication Reconciliation Form rn - SBAR form rn Addendum: 12/26/2021 07:39 Addendum: Pt consented and needle aspiration of right knee performed for fluid analysis r n and to evaluate for septic arthritis. Patient cleansed with betadine, and 70cc cloudy fluid aspirated after numbed with lidocaine. Patient tolerated procedure well and reported improvement in pain. Fluid sent to lab for analysis. . Signatures: Dispatcher [employer] EDMS Wilfredo Davalos MD MD rn Leal, Jahala, RN RN jl7 Malena Patel RN RN ic1 Virginia Patterson RN RN vc1 Corrections: (The following items were deleted from the chart) 12/24 13:34 13:34 Gram Stain ordered. EDMT EDMS 17:53 16:56 Dr. eddy rn 19:31 17:53 Dr. Keith eddy vc1 12/26 07:41 07:39 Addendum: . nunu eddy
[2021-12-24 17:03] LABS: Urine Bacteria <20 /HPF (NONE SEEN); Urine RBC <5 /HPF (NONE SEEN)
[2021-12-24 17:04] LABS: Urine Amorphous Sediment 2+ /HPF (NONE SEEN)
[2021-12-24] MEDS ORDERED: CLINDAMYCIN 600MG/D5W 600 MG/50 ML BAG IV ONE (17:06)
[2021-12-24] MEDS ORDERED: Levofloxacin 750mg IV 750 MG/150 ML BAG IV ONE (17:06)
--- NOTE | 2021-12-24 18:04 | RAD REPORT ---
EXAM DESCRIPTION: RAD - Chest Single View - 12/24/2021 5:17 pm CLINICAL HISTORY: chills, fever, possible sepsis COMPARISON: Portable 12/21/2021 TECHNIQUE: AP portable chest image was obtained 12/24/2021 5:17 pm . FINDINGS: Lungs are clear of focal finding. Interstitial pattern matches comparison. . Heart and vas culature are normal. No measurable pleural effusion and no pneumothorax. No acute bony abnormality se en. No acute aortic findings suspected. IMPRESSION: No acute cardiopulmonary process.
[2021-12-24 19:42] VITALS: BP 114/59; TEMP 99.5; O2SAT 95
== END 2021-12-24 19:31 | disposition short-term general hospital (02) ==
LOC: ER 12:05
PROC: 0S9C3ZX Drainage of Right Knee Joint, Percutaneous Approach, Diagnostic (ICD-10-PCS; principal; 2021-12-24)
DX: M00.9 Pyogenic arthritis, unspecified (principal); I10 Essential (primary) hypertension; E11.9 Type 2 diabetes mellitus without complications; W18.30XA Fall on same level, unspecified, initial encounter; Z79.82 Long term (current) use of aspirin; Z20.822 Contact with and (suspected) exposure to COVID-19
CPT/HCPCS: 87040 ×2; 87088; 87070; 85025; 87086; 80048; 36415; 89050; 87205 ×4; 85610; 82947; 83605; 85730; 89060; 84145; 71045; 72170; 73562; 96375; 96374; 99285; 10021; U0003; J2270; J7030; J2405; 81003; 81015; 87077; 87186

== ENCOUNTER 2022-02-19 20:41 | Inpatient (IN) | payer OTHER ==
--- OUTSIDE RECORDS SUMMARY | 2022-02-19 20:46 | XMS REPORT | Continuity of Care Document ---
:1945 Author Organization [facility] t Address [address] [place] [address] Dr. [address] [place] [address] Care Team Providers Name Role Phone Carson Gonzales Attending Clinician Unavailable PHILLIP Attending Clinician Unavailable MEGHAN Attending Clinician Unavailable LAURA LOMAX Attending Clinician Unavailable Carson Gonzales Admitting Clinician Unavailable PADMINI SANCHEZ Admitting Clinician Unavailable Physician, Primary or Family Admitting Clinician Unavailabl e Payers Payer Name Policy Type Policy Number Effective Date Expiration Date S ource TOTALCARE SNP [id number] 2021 MEDICARE O-CIG 00:00:00 [facility] - [id number] 2021 [facility] 00:[facility]00 [facility] [id number] 2021 O 00:00:00 S [facility] [id number] 2021 00:00:00 Problems This patient has no known problems. Allergies, Adverse Reactions, Alerts Allergy Allergy Status Severity Reaction(s) Onset Inactive Treating Comm ents Source Name Type Date Date Clinician No Known DA Active U 2019- [facility] [place] 00:[facility]: [address] No Known DA Active U 2019-10 [facility] [place] 00:[facility]: [address] No Known DA Active U 2017- [facility] [place] [facility] No Known DA Active U [facility] [place] [facility]:[place] NO KNOWN Allergy Active [facility] Medications This patient has no known medications. Vital Signs Vital Name Observation Time Observation Value Comments Source HEIGHT 2021-12-24 20:47:00 180.3 cm WEIGHT 2021-12-24 20:47:00 102.059 kg HEIGHT 2021-12-24 20:47:00 180.3 cm WEIGHT 2021-12-24 20:47:00 102.059 kg Procedures Procedure Date / Time Performed Performing Clinician [facility] e [id number] 2020-10-07 00:00:00 PATAN.06 [facility] Or [facility] Encounters Start End Encounter Admission Attending Care Care Encounter Source Date/Time Date/Time Type Type Clinicians Facility Department ID 2020-10-07 Inpatient Rina NelsonTO ADMI [id number] [facility] 13:30:00 [id number] [facility] 2022-01-30 2022-01-30 Outpatient ALEX FISHER [facility] [id number] [address] [place] [address] 14:07:00 14:50:24 [facility] 2021-12-24 2022-01-04 Inpatient ER NAL, [facility] Surgery [id number] [facility] 20:18:00 16:33:00 HARESH 2020-10-04 2020-10-04 Outpatient Rina GonzalesWU REFE [id number] [facility] 18:10:00 18:10:[id number] [facility] 2020-10-04 2020-10-04 Outpatient Rina GonzalesCL LABO [id number] [facility] 18:03:00 18:03:00 [id number] [facility] 2020-10-04 2020-10-04 Outpatient Rina GonzalesTO SURG [id number] [facility] 13:30:00 13:30:00 [id number] [facility] Results Test Description Test Time Test Comments Results Result Comments Source AFB CULTURE + SMEAR (NON-SPUTUM) 2022-02-15 13:36:27 Test Item Value Reference Range Interpretation Comme nts CULTURE (BEAKER) (test code = 1095) No acid-fast bacilli isolated i n 42 days AFB SMEAR (BEAKER) (test code = 994) No acid fast bacilli seen AFB CULTURE + SMEAR (NON-SPUTUM)2022-02-15 13:36:27 Test Item Value Reference Range Interpretation Comments CULTURE (BEAKER) (test No acid-fast bacilli code = 1095) isolated in 42 days AFB SMEAR (BEAKER) No acid fast bacilli (test code = 994) seen FUNGUS CULTURE + [id number] 22:37:48 Test Item Value Reference Range Interpretation Comments CULTURE (BEAKER) (test No fungus isolated in code = 1095) 28 days FUNGUS SMEAR (BEAKER) No fungal elements seen (test code = 1406) FUNGUS CULTURE + [id number] 22:37:46 Test Item Value Reference Range Interpretation Comments CULTURE (BEAKER) (test No fungus isolated in code = 1095) 28 days FUNGUS SMEAR (BEAKER) No fungal elements seen (test code = 1406) POCT-GLUCOSE [id number] 17:19:56 Test Item Value Reference Range Interpretation Comments POC-GLUCOSE METER 93 mg/dL 70-110 : TESTED A T [facility] 6720 (BEAKER) (test code = [facility], 1538) [id number]: High Speed Warper Tender/Techni rayshawn ID = [id number] for ELIO S, KEYAIRA POCT-GLUCOSE [id number] 11:37:02 Test Item Value Reference Range Interpretation Comments POC-GLUCOSE METER 141 mg/dL 70-110 H : TESTED A T [facility] 6720 (BEAKER) (test code = [facility], 1538) 01639: High Speed Warper Tender/Techni rayshawn ID = [id number] for DA VIS, KEYAIRA POCT-GLUCOSE [id number] 06:47:08 Test Item Value Reference Range Interpretation Comments POC-GLUCOSE METER 124 mg/dL 70-110 H : TESTED A T [facility] 6720 (BEAKER) (test code = [facility], 153) 14622: High Speed Warper Tender/Techni rayshawn ID = [id number] for PE LIA, LEXA BASIC METABOLIC [id number] 06:34:15 Test Item Value Reference Range Interpretation Comments SODIUM (BEAKER) 135 meq/L 136-145 L (test code = 381) POTASSIUM (BEAKER) 4.0 meq/L 3.5-5.1 Specimen slightly (test code = 379) hemolyzed CHLORIDE (BEAKER) 102 meq/L 98-107 (test code = 382) CO2 (BEAKER) (test 23 meq/L 22-29 code = 355) BLOOD UREA NITROGEN 15 mg/dL 7-21 (BEAKER) (test code = 354) CREATININE (BEAKER) 0.73 mg/dL 0.57-1.25 Specimen slightly (test code = 358) hemolyzed GLUCOSE RANDOM 135 mg/dL 70-105 H (BEAKER) (test code = 652) CALCIUM (BEAKER) 8.3 mg/dL 8.4-10.2 L (test code = 697) EGFR (BEAKER) (test 104 mL/min/1.73 ESTIM ATED GFR IS code = 1092) sq m NOT ACCURATE CREATININE CLEARANCE IN PREDICTING GLOMERULAR FILTRATION RATE . ESTIMATED GFR I S NOT APPLICABLE FOR DIALYSIS PATIEN TS. High Speed Warper Tender ID - BSCBC W/PLT COUNT & AUTO [id number] 06:15:12 Test Item Value Reference Range Interpretation Comments WHITE BLOOD CELL COUNT (BEAKER) 8.7 K/ L 3.5-10.5 (test code = 775) RED BLOOD CELL COUNT (BEAKER) 3.70 M/ L 4.63-6.08 L (test code = 761) HEMOGLOBIN (BEAKER) (test code = 9.6 GM/DL 13.7-17.5 L 410) HEMATOCRIT (BEAKER) (test code = 30.7 % 40.1-51.0 L 411) MEAN CORPUSCULAR VOLUME (BEAKER) 83.0 fL 79.0-92.2 (test code = 753) MEAN CORPUSCULAR HEMOGLOBIN 25.9 pg 25.7-32.2 (BEAKER) (test code = 751) MEAN CORPUSCULAR HEMOGLOBIN CONC 31.3 GM/DL 32.3-36.5 L (BEAKER) (test code = 752) RED CELL DISTRIBUTION WIDTH 17.1 % 11.6-14.4 H (BEAKER) (test code = 412) PLATELET COUNT (BEAKER) (test 433 K/CU MM 150-450 code = 756) MEAN PLATELET VOLUME (BEAKER) 9.3 fL 9.4-12.4 L (test code = 754) NUCLEATED RED BLOOD CELLS 0 /100 WBC 0-0 (BEAKER) (test code = 413) NEUTROPHILS RELATIVE PERCENT 73 % (BEAKER) (test code = 429) LYMPHOCYTES RELATIVE PERCENT 11 % (BEAKER) (test code = 430) MONOCYTES RELATIVE PERCENT 9 % (BEAKER) (test code = 431) EOSINOPHILS RELATIVE PERCENT 6 % (BEAKER) (test code = 432) BASOPHILS RELATIVE PERCENT 0 % (BEAKER) (test code = 437) NEUTROPHILS ABSOLUTE COUNT 6.26 K/ L 1.78-5.38 H (BEAKER) (test code = 670) LYMPHOCYTES ABSOLUTE COUNT 0.97 K/ L 1.32-3.57 L (BEAKER) (test code = 414) MONOCYTES ABSOLUTE COUNT (BEAKER) 0.79 K/ L 0.30-0.82 (test code = 415) EOSINOPHILS ABSOLUTE COUNT 0.51 K/ L 0.04-0.54 (BEAKER) (test code = 416) BASOPHILS ABSOLUTE COUNT (BEAKER) 0.03 K/ L 0.01-0.08 (test code = 417) IMMATURE GRANULOCYTES-RELATIVE 1 % 0-1 PERCENT (BEAKER) (test code = 2801) POCT-GLUCOSE [id number] 21:19:08 Test Item Value Reference Range Interpretation Comments POC-GLUCOSE METER 141 mg/dL 70-110 H : TESTED A T [facility] 6720 (BEAKER) (test code = [facility], 153) 01898: High Speed Warper Tender/Techni rayshawn ID = [id number] for PE LIA, LEXA POCT-GLUCOSE [id number] 16:55:05 Test Item Value Reference Range Interpretation Comments POC-GLUCOSE METER 138 mg/dL 70-110 H : TESTED A T [facility] 6720 (BEAKER) (test code = [facility], 1538) 14625: High Speed Warper Tender/Techni rayshawn ID = [id number] for DA VIS, KEYAIRA POCT-GLUCOSE [id number] 11:55:29 Test Item Value Reference Range Interpretation Comments POC-GLUCOSE METER 221 mg/dL 70-110 H : TESTED A T [facility] 6720 (BEAKER) (test code = [facility], 1538) 17549: High Speed Warper Tender/Techni rayshawn ID = [id number] for DA VIS, KEYAIRA BASIC METABOLIC [id number] 06:39:08 Test Item Value Reference Range Interpretation Comments SODIUM (BEAKER) 137 meq/L 136-145 (test code = 381) POTASSIUM (BEAKER) 4.0 meq/L 3.5-5.1 (test code = 379) CHLORIDE (BEAKER) 103 meq/L 98-107 (test code = 382) CO2 (BEAKER) (test 27 meq/L 22-29 code = 355) BLOOD UREA NITROGEN 16 mg/dL 7-21 (BEAKER) (test code = 354) CREATININE (BEAKER) 0.75 mg/dL 0.57-1.25 (test code = 358) GLUCOSE RANDOM 173 mg/dL 70-105 H (BEAKER) (test code = 652) CALCIUM (BEAKER) 8.7 mg/dL 8.4-10.2 (test code = 697) EGFR (BEAKER) (test 101 mL/min/1.73 ESTIM ATED GFR IS code = 1092) sq m NOT ACCURATE CREATININE CLEARANCE IN PREDICTING GLOMERULAR FILTRATION RATE . ESTIMATED GFR I S NOT APPLICABLE FOR DIALYSIS PATIEN TS. High Speed Warper Tender ID - DEJON MPOCT-GLUCOSE [id number] 06:34:30 Test Item Value Reference Range Interpretation Comments POC-GLUCOSE METER 169 mg/dL 70-110 H : [facility] ([facility] (test code = [facility] [place], 1538) 44412: High Speed Warper Tender/Techni rayshawn ID = [id number] for GR AHAKHANH Milian CBC W/PLT COUNT & AUTO [id number] 06:11:44 Test Item Value Reference Range Interpretation Comments WHITE BLOOD CELL COUNT (BEAKER) 7.8 K/ L 3.5-10.5 (test code = 775) RED BLOOD CELL COUNT (BEAKER) 3.65 M/ L 4.63-6.08 L (test code = 761) HEMOGLOBIN (BEAKER) (test code = 9.6 GM/DL 13.7-17.5 L 410) HEMATOCRIT (BEAKER) (test code = 30.1 % 40.1-51.0 L 411) MEAN CORPUSCULAR VOLUME (BEAKER) 82.5 fL 79.0-92.2 (test code = 753) MEAN CORPUSCULAR HEMOGLOBIN 26.3 pg 25.7-32.2 (BEAKER) (test code = 751) MEAN CORPUSCULAR HEMOGLOBIN CONC 31.9 GM/DL 32.3-36.5 L (BEAKER) (test code = 752) RED CELL DISTRIBUTION WIDTH 17.1 % 11.6-14.4 H (BEAKER) (test code = 412) PLATELET COUNT (BEAKER) (test 430 K/CU MM 150-450 code = 756) MEAN PLATELET VOLUME (BEAKER) 9.4 fL 9.4-12.4 (test code = 754) NUCLEATED RED BLOOD CELLS 0 /100 WBC 0-0 (BEAKER) (test code = 413) NEUTROPHILS RELATIVE PERCENT 70 % (BEAKER) (test code = 429) LYMPHOCYTES RELATIVE PERCENT 12 % (BEAKER) (test code = 430) MONOCYTES RELATIVE PERCENT 10 % (BEAKER) (test code = 431) EOSINOPHILS RELATIVE PERCENT 6 % (BEAKER) (test code = 432) BASOPHILS RELATIVE PERCENT 0 % (BEAKER) (test code = 437) NEUTROPHILS ABSOLUTE COUNT 5.44 K/ L 1.78-5.38 H (BEAKER) (test code = 670) LYMPHOCYTES ABSOLUTE COUNT 0.96 K/ L 1.32-3.57 L (BEAKER) (test code = 414) MONOCYTES ABSOLUTE COUNT (BEAKER) 0.74 K/ L 0.30-0.82 (test code = 415) EOSINOPHILS ABSOLUTE COUNT 0.45 K/ L 0.04-0.54 (BEAKER) (test code = 416) BASOPHILS ABSOLUTE COUNT (BEAKER) 0.03 K/ L 0.01-0.08 (test code = 417) IMMATURE GRANULOCYTES-RELATIVE 2 % 0-1 H PERCENT (BEAKER) (test code = 2801) POCT-GLUCOSE [id number] 21:01:47 Test Item Value Reference Range Interpretation Comments POC-GLUCOSE METER 191 mg/dL 70-110 H : TESTED Hussain T [facility] 6720 (BEAKER) (test code = [facility], 1538) 45413: High Speed Warper Tender/Techni rayshawn ID = [id number] for KHANH COBURN BLOOD [id number] 20:00:54 Test Item Value Reference Range Interpretation Comments CULTURE (BEAKER) (test No growth in 5 days code = 1095) The specimen volume collected for this blood culture was below the optimum (10 mL per bottle or 20 mL total). Use of lower volumes may adversely affect recovery and/or detection times of some organisms.BLOOD [id number] 20:00:54 Test Item Value Reference Range Interpretation Comments CULTURE (BEAKER) (test No growth in 5 days code = 1095) The specimen volume collected for this blood culture was below the optimum (10 mL per bottle or 20 mL total). Use of lower volumes may adversely affect recovery and/or detection times of some organisms.POCT-GLUCOSE [id number] 17:56:34 Test Item Value Reference Range Interpretation Comments POC-GLUCOSE METER 239 mg/dL 70-110 H : TESTED A T [facility] 6720 (BEAKER) (test code = [facility], 1538) 21354: High Speed Warper Tender/Techni rayshawn ID = [id number] for [place] Maddie davila POCT-GLUCOSE [id number] 12:32:33 Test Item Value Reference Range Interpretation Comments POC-GLUCOSE METER 272 mg/dL 70-110 H : TESTED A T [facility] 6720 (BEAKER) (test code = [facility], 1538) 28114: High Speed Warper Tender/Techni rayshawn ID = [id number] for [place] Maddie davila BASIC METABOLIC [id number] 08:03:29 Test Item Value Reference Range Interpretation Comments SODIUM (BEAKER) 136 meq/L 136-145 (test code = 381) POTASSIUM (BEAKER) 4.3 meq/L 3.5-5.1 Specimen slightly (test code = 379) hemolyzed CHLORIDE (BEAKER) 103 meq/L 98-107 (test code = 382) CO2 (BEAKER) (test 22 meq/L 22-29 code = 355) BLOOD UREA NITROGEN 14 mg/dL 7-21 (BEAKER) (test code = 354) CREATININE (BEAKER) 0.81 mg/dL 0.57-1.25 Specimen slightly (test code = 358) hemolyzed GLUCOSE RANDOM 188 mg/dL 70-105 H (BEAKER) (test code = 652) CALCIUM (BEAKER) 8.4 mg/dL 8.4-10.2 (test code = 697) EGFR (BEAKER) (test 93 mL/min/1.73 ESTIMA CHANDRIKA GFR IS code = 1092) sq m NOT ACCURATE CREATININE CLEARANCE IN PREDICTING GLOMERULAR FILTRATION RATE . ESTIMATED GFR I S NOT APPLICABLE FOR DIALYSIS PATIEN TS. High Speed Warper Tender ID - DBPOCT-GLUCOSE [id number] 07:51:24 Test Item Value Reference Range Interpretation Comments POC-GLUCOSE METER 175 mg/dL 70-110 H : TESTED A T [facility] 6720 (BEAKER) (test code = [facility] [place], 1538) 66463: High Speed Warper Tender/Techni rayshawn ID = [id number] for GR AHAM, KHANH CBC W/PLT COUNT & AUTO [id number] 06:48:33 Test Item Value Reference Range Interpretation Comments WHITE BLOOD CELL COUNT (BEAKER) 9.1 K/ L 3.5-10.5 (test code = 775) RED BLOOD CELL COUNT (BEAKER) 3.68 M/ L 4.63-6.08 L (test code = 761) HEMOGLOBIN (BEAKER) (test code = 9.7 GM/DL 13.7-17.5 L 410) HEMATOCRIT (BEAKER) (test code = 30.0 % 40.1-51.0 L 411) MEAN CORPUSCULAR VOLUME (BEAKER) 81.5 fL 79.0-92.2 (test code = 753) MEAN CORPUSCULAR HEMOGLOBIN 26.4 pg 25.7-32.2 (BEAKER) (test code = 751) MEAN CORPUSCULAR HEMOGLOBIN CONC 32.3 GM/DL 32.3-36.5 (BEAKER) (test code = 752) RED CELL DISTRIBUTION WIDTH 17.2 % 11.6-14.4 H (BEAKER) (test code = 412) PLATELET COUNT (BEAKER) (test 446 K/CU MM 150-450 code = 756) MEAN PLATELET VOLUME (BEAKER) 9.9 fL 9.4-12.4 (test code = 754) NUCLEATED RED BLOOD CELLS 0 /100 WBC 0-0 (BEAKER) (test code = 413) NEUTROPHILS RELATIVE PERCENT 76 % (BEAKER) (test code = 429) LYMPHOCYTES RELATIVE PERCENT 9 % (BEAKER) (test code = 430) MONOCYTES RELATIVE PERCENT 9 % (BEAKER) (test code = 431) EOSINOPHILS RELATIVE PERCENT 5 % (BEAKER) (test code = 432) BASOPHILS RELATIVE PERCENT 0 % (BEAKER) (test code = 437) NEUTROPHILS ABSOLUTE COUNT 6.91 K/ L 1.78-5.38 H (BEAKER) (test code = 670) LYMPHOCYTES ABSOLUTE COUNT 0.77 K/ L 1.32-3.57 L (BEAKER) (test code = 414) MONOCYTES ABSOLUTE COUNT (BEAKER) 0.80 K/ L 0.30-0.82 (test code = 415) EOSINOPHILS ABSOLUTE COUNT 0.47 K/ L 0.04-0.54 (BEAKER) (test code = 416) BASOPHILS ABSOLUTE COUNT (BEAKER) 0.03 K/ L 0.01-0.08 (test code = 417) IMMATURE GRANULOCYTES-RELATIVE 1 % 0-1 PERCENT (BEAKER) (test code = 2801) POCT-GLUCOSE [id number] 23:34:08 Test Item Value Reference Range Interpretation Comments POC-GLUCOSE METER 164 mg/dL 70-110 H : TESTED A T [facility] 6720 (BEAKER) (test code = [facility], 1538) [id number]: High Speed Warper Tender/Techni rayshawn ID = [id number] for GR AHAM, KHANH POCT-GLUCOSE [id number] 17:57:11 Test Item Value Reference Range Interpretation Comments POC-GLUCOSE METER 260 mg/dL 70-110 H : TESTED A T [facility] 6720 (BEAKER) (test code = [facility], 1538) 80124: High Speed Warper Tender/Techni rayshawn ID = [id number] for Al giovanni, Maddie POCT-GLUCOSE [id number] 13:02:21 Test Item Value Reference Range Interpretation Comments POC-GLUCOSE METER 205 mg/dL 70-110 H : TESTED A T [facility] 6720 (BEAKER) (test code = [facility], 1538) 71338: High Speed Warper Tender/Techni rayshawn ID = [id number] for Al giovanni, Maddie ANAEROBIC [id number] 12:09:18 Test Item Value Reference Range Interpretation Comments CULTURE (BEAKER) (test No anaerobes isolated code = 1095) ANAEROBIC [id number] 12:07:53 Test Item Value Reference Range Interpretation Comments CULTURE (BEAKER) (test No anaerobes isolated code = 1095) SARS-COV2/RT-PCR ([facility])2022-01-01 07:23:38 Test Item Value Reference Range Interpretation Comments SARS-COV2/RT-PC Negative Not Detected, The SARS-Co V-2 target R (test code = Negative, See nucleic acid s are not [id number]) external report for detected in this specimen. linked test Negative resul ts do not preclude SARS-C oV-2 infection and s hould not be used as the sole basis for patient man agement decisions. Nega tive results must be combined with clinical observations, p atient history, and epidemiological information. A false negative result may occur if a specimen i s improperly cheryl ected, transported or handled. This SARS CoV-2 test is a rapid, real-toshia e RT-PCR test intended f or the qualitative det ection of nucleic acid fr om SARS-CoV-2 in a nasopharyngeal swab specimen collec chandrika from individuals nasima pected of COVID-19 by the [facility]. This test has been authorized by FDA under an EUA for use by authorized laboratories. This test is only authorized for the duration of the declaration that circumstances exist justifying the authorization of emergency use of in vitro diagnostic tests for detection and/or diagnosis of COVID-19 under Section 564(b)(1) of the Federal Food, Drug and Cosmetic Act, 21 U.S.C. 360bbb- 3(b)(1), unless the authorization is terminated or revoked sooner. Fact Sheet for Healthcare Providers: https://www.[employer]/Documents/Xpert%20Xpress%20SARS%20CoV-2/Fact%20Sheets/3023802%20SARS-COV -2%20HEALTHCARE%20PROVIDERS%20FACT%20SHEET.pdf Fact Sheet for Healthcare Patients: https://www.[employer]/Documents/Xpert %20Xpress%20SARS%20CoV-2/Fact%20Sheets/3023801%00JKEV-SUC-2%20PATIENT%20FACT%20 SHEET.pdfBASI METABOLIC [id number] 05:05:16 Test Item Value Reference Range Interpretation Comments SODIUM (BEAKER) 138 meq/L 136-145 (test code = 381) POTASSIUM (BEAKER) 3.8 meq/L 3.5-5.1 (test code = 379) CHLORIDE (BEAKER) 105 meq/L 98-107 (test code = 382) CO2 (BEAKER) (test 25 meq/L 22-29 code = 355) BLOOD UREA NITROGEN 18 mg/dL 7-21 (BEAKER) (test code = 354) CREATININE (BEAKER) 0.79 mg/dL 0.57-1.25 (test code = 358) GLUCOSE RANDOM 233 mg/dL 70-105 H (BEAKER) (test code = 652) CALCIUM (BEAKER) 8.5 mg/dL 8.4-10.2 (test code = 697) EGFR (BEAKER) (test 95 mL/min/1.73 ESTIMA CHANDRIKA GFR IS code = 1092) sq m NOT ACCURATE CREATININE CLEARANCE IN PREDICTING GLOMERULAR FILTRATION RATE . ESTIMATED GFR I S NOT APPLICABLE FOR DIALYSIS PATIEN TS. High Speed Warper Tender ID - PIAYA LCBC W/PLT COUNT & AUTO [id number] 04:35:05 Test Item Value Reference Range Interpretation Comments WHITE BLOOD CELL COUNT (BEAKER) 9.8 K/ L 3.5-10.5 (test code = 775) RED BLOOD CELL COUNT (BEAKER) 3.61 M/ L 4.63-6.08 L (test code = 761) HEMOGLOBIN (BEAKER) (test code = 9.3 GM/DL 13.7-17.5 L 410) HEMATOCRIT (BEAKER) (test code = 29.6 % 40.1-51.0 L 411) MEAN CORPUSCULAR VOLUME (BEAKER) 82.0 fL 79.0-92.2 (test code = 753) MEAN CORPUSCULAR HEMOGLOBIN 25.8 pg 25.7-32.2 (BEAKER) (test code = 751) MEAN CORPUSCULAR HEMOGLOBIN CONC 31.4 GM/DL 32.3-36.5 L (BEAKER) (test code = 752) RED CELL DISTRIBUTION WIDTH 16.7 % 11.6-14.4 H (BEAKER) (test code = 412) PLATELET COUNT (BEAKER) (test 451 K/CU MM 150-450 H code = 756) MEAN PLATELET VOLUME (BEAKER) 9.8 fL 9.4-12.4 (test code = 754) NUCLEATED RED BLOOD CELLS 0 /100 WBC 0-0 (BEAKER) (test code = 413) NEUTROPHILS RELATIVE PERCENT 73 % (BEAKER) (test code = 429) LYMPHOCYTES RELATIVE PERCENT 11 % (BEAKER) (test code = 430) MONOCYTES RELATIVE PERCENT 10 % (BEAKER) (test code = 431) EOSINOPHILS RELATIVE PERCENT 5 % (BEAKER) (test code = 432) BASOPHILS RELATIVE PERCENT 1 % (BEAKER) (test code = 437) NEUTROPHILS ABSOLUTE COUNT 7.09 K/ L 1.78-5.38 H (BEAKER) (test code = 670) LYMPHOCYTES ABSOLUTE COUNT 1.06 K/ L 1.32-3.57 L (BEAKER) (test code = 414) MONOCYTES ABSOLUTE COUNT (BEAKER) 0.93 K/ L 0.30-0.82 H (test code = 415) EOSINOPHILS ABSOLUTE COUNT 0.53 K/ L 0.04-0.54 (BEAKER) (test code = 416) BASOPHILS ABSOLUTE COUNT (BEAKER) 0.05 K/ L 0.01-0.08 (test code = 417) IMMATURE GRANULOCYTES-RELATIVE 1 % 0-1 PERCENT (BEAKER) (test code = 2801) POCT-GLUCOSE [id number] 23:08:49 Test Item Value Reference Range Interpretation Comments POC-GLUCOSE METER 226 mg/dL 70-110 H : TESTED A T [facility] 6720 (BEAKER) (test code = [facility], 1538) 98108: High Speed Warper Tender/Techni rayshawn ID = [id number] for GR AHAM, KHANH POCT-GLUCOSE [id number] 15:54:20 Test Item Value Reference Range Interpretation Comments POC-GLUCOSE METER 253 mg/dL 70-110 H : TESTED A T [facility] 6720 (BEAKER) (test code = [facility], 1538) 97404: High Speed Warper Tender/Techni rayshawn ID = [id number] for Le onard, Leonora POCT-GLUCOSE [id number] 11:50:27 Test Item Value Reference Range Interpretation Comments POC-GLUCOSE METER 293 mg/dL 70-110 H : TESTED A T [facility] 6720 (BEAKER) (test code = [facility], 1538) 67918: High Speed Warper Tender/Techni rayshawn ID = [id number] for Le onard, Leonora RAD, CHEST, 1 VIEW, NON [id number] 09:38:00Reason for exam:->PICC LINE PLACEMENTShould this be performed at the bedside?->Yes [facility] KENY LAL : 1945 Sex: MFINAL REPORT TECHNIQUE: Frontal view of the chest. INDICATION: PICC L INE PLACEMENT. COMPARISON: None. FINDINGS: LINES/TUBES: A right PICC has its tip over the mid SVC. LUNGS: The questionable nodular opacity of the left base which measures 0.8 cm. No consolidation or pulmonary edema. PLEURA: No pneumothorax or significant pleural effusion. HEART AND MEDIASTINUM: The cardiac silhouette is normal in size. SOFT TISSUES AND BONES: Unremarkable. IMPRESSION: The right PICC has its tip at the mid SVC. A questionable nodular opacity of the left base could be overlapping vessels but is indeterminate. A follow-up radiograph is recommended in 3 months to exclude a true pulmonary nodule. Signed: Liam Simmons [facility] Verified Date/Time: 12/31/2021 09:38:46 Reading Location: [address] Body Reading Room BASIC METABOLIC [id number] 06:45:00 Test Item Value Reference Range Interpretation Comments SODIUM (BEAKER) 138 meq/L 136-145 (test code = 381) POTASSIUM (BEAKER) 4.0 meq/L 3.5-5.1 (test code = 379) CHLORIDE (BEAKER) 105 meq/L 98-107 (test code = 382) CO2 (BEAKER) (test 26 meq/L 22-29 code = 355) BLOOD UREA NITROGEN 18 mg/dL 7-21 (BEAKER) (test code = 354) CREATININE (BEAKER) 0.77 mg/dL 0.57-1.25 (test code = 358) GLUCOSE RANDOM 232 mg/dL 70-105 H (BEAKER) (test code = 652) CALCIUM (BEAKER) 8.6 mg/dL 8.4-10.2 (test code = 697) EGFR (BEAKER) (test 98 mL/min/1.73 ESTIMA CHANDRIKA GFR IS code = 1092) sq m NOT ACCURATE CREATININE CLEARANCE IN PREDICTING GLOMERULAR FILTRATION RATE . ESTIMATED GFR I S NOT APPLICABLE FOR DIALYSIS PATIEN TS. High Speed Warper Tender ID - PIAYA LPOCT-GLUCOSE [id number] 06:33:01 Test Item Value Reference Range Interpretation Comments POC-GLUCOSE METER 232 mg/dL 70-110 H : TESTED A T [facility] 6720 (BEAKER) (test code = [facility] [place], 1538) [id number]: High Speed Warper Tender/Techni rayshawn ID = [id number] for Br andsClaudia CBC W/PLT COUNT & AUTO [id number] 06:03:15 Test Item Value Reference Range Interpretation Comments WHITE BLOOD CELL COUNT (BEAKER) 9.9 K/ L 3.5-10.5 (test code = 775) RED BLOOD CELL COUNT (BEAKER) 3.74 M/ L 4.63-6.08 L (test code = 761) HEMOGLOBIN (BEAKER) (test code = 9.9 GM/DL 13.7-17.5 L 410) HEMATOCRIT (BEAKER) (test code = 29.9 % 40.1-51.0 L 411) MEAN CORPUSCULAR VOLUME (BEAKER) 79.9 fL 79.0-92.2 (test code = 753) MEAN CORPUSCULAR HEMOGLOBIN 26.5 pg 25.7-32.2 (BEAKER) (test code = 751) MEAN CORPUSCULAR HEMOGLOBIN CONC 33.1 GM/DL 32.3-36.5 (BEAKER) (test code = 752) RED CELL DISTRIBUTION WIDTH 16.8 % 11.6-14.4 H (BEAKER) (test code = 412) PLATELET COUNT (BEAKER) (test 452 K/CU MM 150-450 H code = 756) MEAN PLATELET VOLUME (BEAKER) 9.5 fL 9.4-12.4 (test code = 754) NUCLEATED RED BLOOD CELLS 0 /100 WBC 0-0 (BEAKER) (test code = 413) NEUTROPHILS RELATIVE PERCENT 76 % (BEAKER) (test code = 429) LYMPHOCYTES RELATIVE PERCENT 8 % (BEAKER) (test code = 430) MONOCYTES RELATIVE PERCENT 9 % (BEAKER) (test code = 431) EOSINOPHILS RELATIVE PERCENT 5 % (BEAKER) (test code = 432) BASOPHILS RELATIVE PERCENT 0 % (BEAKER) (test code = 437) NEUTROPHILS ABSOLUTE COUNT 7.49 K/ L 1.78-5.38 H (BEAKER) (test code = 670) LYMPHOCYTES ABSOLUTE COUNT 0.82 K/ L 1.32-3.57 L (BEAKER) (test code = 414) MONOCYTES ABSOLUTE COUNT (BEAKER) 0.85 K/ L 0.30-0.82 H (test code = 415) EOSINOPHILS ABSOLUTE COUNT 0.53 K/ L 0.04-0.54 (BEAKER) (test code = 416) BASOPHILS ABSOLUTE COUNT (BEAKER) 0.04 K/ L 0.01-0.08 (test code = 417) IMMATURE GRANULOCYTES-RELATIVE 1 % 0-1 PERCENT (BEAKER) (test code = 2801) POCT-GLUCOSE [id number] 21:26:35 Test Item Value Reference Range Interpretation Comments POC-GLUCOSE METER 243 mg/dL 70-110 H : TESTED A T [facility] 6720 (BEAKER) (test code = [facility], 1538) 73319: High Speed Warper Tender/Techni rayshawn ID = [id number] for Br ands, Vanezza POCT-GLUCOSE [id number] 16:41:04 Test Item Value Reference Range Interpretation Comments POC-GLUCOSE METER 263 mg/dL 70-110 H : TESTED A T [facility] 6720 (BEAKER) (test code = [facility], 1538) 65111: High Speed Warper Tender/Techni rayshawn ID = [id number] for Le onard, Leonora POCT-GLUCOSE [id number] 12:05:43 Test Item Value Reference Range Interpretation Comments POC-GLUCOSE METER 250 mg/dL 70-110 H : TESTED A T [facility] 6720 (BEAKER) (test code = [facility], 1538) 75087: High Speed Warper Tender/Techni rayshawn ID = [id number] for Le onard, Leonora POCT-GLUCOSE [id number] 06:58:55 Test Item Value Reference Range Interpretation Comments POC-GLUCOSE METER 234 mg/dL 70-110 H : TESTED A T [facility] 6720 (BEAKER) (test code = [facility] [place], 1538) 08397: High Speed Warper Tender/Techni rayshawn ID = [id number] for KHANH COBURN BASIC METABOLIC [id number] 04:14:57 Test Item Value Reference Range Interpretation Comments SODIUM (BEAKER) 138 meq/L 136-145 (test code = 381) POTASSIUM (BEAKER) 3.9 meq/L 3.5-5.1 (test code = 379) CHLORIDE (BEAKER) 105 meq/L 98-107 (test code = 382) CO2 (BEAKER) (test 24 meq/L 22-29 code = 355) BLOOD UREA NITROGEN 22 mg/dL 7-21 H (BEAKER) (test code = 354) CREATININE (BEAKER) 0.82 mg/dL 0.57-1.25 (test code = 358) GLUCOSE RANDOM 273 mg/dL 70-105 H (BEAKER) (test code = 652) CALCIUM (BEAKER) 8.6 mg/dL 8.4-10.2 (test code = 697) EGFR (BEAKER) (test 91 mL/min/1.73 ESTIMA CHANDRIKA GFR IS code = 1092) sq m NOT ACCURATE CREATININE CLEARANCE IN PREDICTING GLOMERULAR FILTRATION RATE . ESTIMATED GFR I S NOT APPLICABLE FOR DIALYSIS PATIEN TS. High Speed Warper Tender ID - DEJON MCBC W/PLT COUNT & AUTO [id number] 03:53:44 Test Item Value Reference Range Interpretation Comments WHITE BLOOD CELL COUNT (BEAKER) 9.9 K/ L 3.5-10.5 (test code = 775) RED BLOOD CELL COUNT (BEAKER) 3.73 M/ L 4.63-6.08 L (test code = 761) HEMOGLOBIN (BEAKER) (test code = 9.8 GM/DL 13.7-17.5 L 410) HEMATOCRIT (BEAKER) (test code = 29.9 % 40.1-51.0 L 411) MEAN CORPUSCULAR VOLUME (BEAKER) 80.2 fL 79.0-92.2 (test code = 753) MEAN CORPUSCULAR HEMOGLOBIN 26.3 pg 25.7-32.2 (BEAKER) (test code = 751) MEAN CORPUSCULAR HEMOGLOBIN CONC 32.8 GM/DL 32.3-36.5 (BEAKER) (test code = 752) RED CELL DISTRIBUTION WIDTH 16.7 % 11.6-14.4 H (BEAKER) (test code = 412) PLATELET COUNT (BEAKER) (test 422 K/CU MM 150-450 code = 756) MEAN PLATELET VOLUME (BEAKER) 9.8 fL 9.4-12.4 (test code = 754) NUCLEATED RED BLOOD CELLS 0 /100 WBC 0-0 (BEAKER) (test code = 413) NEUTROPHILS RELATIVE PERCENT 75 % (BEAKER) (test code = 429) LYMPHOCYTES RELATIVE PERCENT 8 % (BEAKER) (test code = 430) MONOCYTES RELATIVE PERCENT 9 % (BEAKER) (test code = 431) EOSINOPHILS RELATIVE PERCENT 6 % (BEAKER) (test code = 432) BASOPHILS RELATIVE PERCENT 0 % (BEAKER) (test code = 437) NEUTROPHILS ABSOLUTE COUNT 7.44 K/ L 1.78-5.38 H (BEAKER) (test code = 670) LYMPHOCYTES ABSOLUTE COUNT 0.79 K/ L 1.32-3.57 L (BEAKER) (test code = 414) MONOCYTES ABSOLUTE COUNT (BEAKER) 0.91 K/ L 0.30-0.82 H (test code = 415) EOSINOPHILS ABSOLUTE COUNT 0.57 K/ L 0.04-0.54 H (BEAKER) (test code = 416) BASOPHILS ABSOLUTE COUNT (BEAKER) 0.04 K/ L 0.01-0.08 (test code = 417) IMMATURE GRANULOCYTES-RELATIVE 1 % 0-1 PERCENT (BEAKER) (test code = 2801) POCT-GLUCOSE [id number] 21:09:32 Test Item Value Reference Range Interpretation Comments POC-GLUCOSE METER 273 mg/dL 70-110 H : TESTED A T [facility] 6720 (BEAKER) (test code = [facility], 1538) 29896: High Speed Warper Tender/Techni rayshawn ID = [id number] for KHANH COBURN POCT-GLUCOSE [id number] 15:35:25 Test Item Value Reference Range Interpretation Comments POC-GLUCOSE METER 266 mg/dL 70-110 H : TESTED A T [facility] 6720 (BEAKER) (test code = [facility], 1538) 51408: High Speed Warper Tender/Techni rayshawn ID = [id number] for Aracely ownEmily SURGICALLY OBTAINED CULTURE + GRAM [id number] 14:30:13 Test Item Value Reference Range Interpretation Comments CULTURE A 2+ Same organis m has (BEAKER) (test been isolated from code = 1095) cultures(s) of the same body site and collection date . Repeat identification and susceptibility testing performed only after consultation wi the clinical microb iology laboratory.Refe r to previous cultur e ofStaphylococcu s aureus GRAM STAIN 2+ WBCs RESULT (BEAKER) (test code = 1123) GRAM STAIN <1+ gram RESULT (BEAKER) positive cocci (test code = in pairs 862971) SURGICALLY OBTAINED CULTURE + GRAM [id number] 14:29:22 Test Item Value Reference Interpretation Comments Range CULTURE (BEAKER) STAPHYLOCOCCUS A 1+ Staphy lococcus (test code = 1095) AUREUS aureus Clindamycin (test S code = 10) Erythromycin (test S code = 4) Linezolid (test code S = 40) Nitrofurantoin (test S code = 23) Oxacillin (test code S = 14) Rifampin (test code = S 43) Tetracycline (test S code = 2) Trimethoprim + S Sulfamethoxazole (test code = 47) Vancomycin (test code S = 13) GRAM STAIN RESULT <1+ WBCs (BEAKER) (test code = 1123) GRAM STAIN RESULT No organisms seen (BEAKER) (test code = 097830) POCT-GLUCOSE [id number] 12:27:25 Test Item Value Reference Range Interpretation Comments POC-GLUCOSE METER 279 mg/dL 70-110 H : TESTED A T [facility] 6720 (BEAKER) (test code = [facility], 153) 06829: High Speed Warper Tender/Techni rayshawn ID = [id number] for Emily Wade POCT-GLUCOSE [id number] 06:52:52 Test Item Value Reference Range Interpretation Comments POC-GLUCOSE METER 245 mg/dL 70-110 H : TESTED A T [facility] 6720 (BEAKER) (test code = [facility], 153) 10492: High Speed Warper Tender/Techni rayshawn ID = [id number] for MAURICIO CHANCE BASIC METABOLIC [id number] 04:32:10 Test Item Value Reference Range Interpretation Comments SODIUM (BEAKER) 131 meq/L 136-145 L (test code = 381) POTASSIUM (BEAKER) 4.0 meq/L 3.5-5.1 (test code = 379) CHLORIDE (BEAKER) 101 meq/L 98-107 (test code = 382) CO2 (BEAKER) (test 22 meq/L 22-29 code = 355) BLOOD UREA NITROGEN 33 mg/dL 7-21 H (BEAKER) (test code = 354) CREATININE (BEAKER) 1.09 mg/dL 0.57-1.25 (test code = 358) GLUCOSE RANDOM 277 mg/dL 70-105 H (BEAKER) (test code = 652) CALCIUM (BEAKER) 8.3 mg/dL 8.4-10.2 L (test code = 697) EGFR (BEAKER) (test 66 mL/min/1.73 ESTIMA CHANDRIKA GFR IS code = 1092) sq m NOT ACCURATE CREATININE CLEARANCE IN PREDICTING GLOMERULAR FILTRATION RATE . ESTIMATED GFR I S NOT APPLICABLE FOR DIALYSIS PATIEN TS. High Speed Warper Tender ID - DBHEPATIC FUNCTION [id number] 04:32:10 Test Item Value Reference Range Interpretation Comments TOTAL PROTEIN (BEAKER) (test code = 6.6 gm/dL 6.0-8.3 770) ALBUMIN (BEAKER) (test code = 1145) 2.6 g/dL 3.5-5.0 L BILIRUBIN TOTAL (BEAKER) (test code 0.4 mg/dL 0.2-1.2 = 377) BILIRUBIN DIRECT (BEAKER) (test 0.2 mg/dL 0.1-0.5 code = 706) ALKALINE PHOSPHATASE (BEAKER) (test 160 U/L 40-150 H code = 346) AST (SGOT) (BEAKER) (test code = 54 U/L 5-34 H 353) ALT (SGPT) (BEAKER) (test code = 26 U/L 6-55 347) High Speed Warper Tender ID - DBCBC W/PLT COUNT & AUTO [id number] 03:57:56 Test Item Value Reference Range Interpretation Comments WHITE BLOOD CELL COUNT (BEAKER) 9.3 K/ L 3.5-10.5 (test code = 775) RED BLOOD CELL COUNT (BEAKER) 3.88 M/ L 4.63-6.08 L (test code = 761) HEMOGLOBIN (BEAKER) (test code = 10.2 GM/DL 13.7-17.5 L 410) HEMATOCRIT (BEAKER) (test code = 30.9 % 40.1-51.0 L 411) MEAN CORPUSCULAR VOLUME (BEAKER) 79.6 fL 79.0-92.2 (test code = 753) MEAN CORPUSCULAR HEMOGLOBIN 26.3 pg 25.7-32.2 (BEAKER) (test code = 751) MEAN CORPUSCULAR HEMOGLOBIN CONC 33.0 GM/DL 32.3-36.5 (BEAKER) (test code = 752) RED CELL DISTRIBUTION WIDTH 16.5 % 11.6-14.4 H (BEAKER) (test code = 412) PLATELET COUNT (BEAKER) (test 388 K/CU MM 150-450 code = 756) MEAN PLATELET VOLUME (BEAKER) 9.3 fL 9.4-12.4 L (test code = 754) NUCLEATED RED BLOOD CELLS 0 /100 WBC 0-0 (BEAKER) (test code = 413) NEUTROPHILS RELATIVE PERCENT 73 % (BEAKER) (test code = 429) LYMPHOCYTES RELATIVE PERCENT 10 % (BEAKER) (test code = 430) MONOCYTES RELATIVE PERCENT 10 % (BEAKER) (test code = 431) EOSINOPHILS RELATIVE PERCENT 6 % (BEAKER) (test code = 432) BASOPHILS RELATIVE PERCENT 0 % (BEAKER) (test code = 437) NEUTROPHILS ABSOLUTE COUNT 6.79 K/ L 1.78-5.38 H (BEAKER) (test code = 670) LYMPHOCYTES ABSOLUTE COUNT 0.92 K/ L 1.32-3.57 L (BEAKER) (test code = 414) MONOCYTES ABSOLUTE COUNT (BEAKER) 0.92 K/ L 0.30-0.82 H (test code = 415) EOSINOPHILS ABSOLUTE COUNT 0.56 K/ L 0.04-0.54 H (BEAKER) (test code = 416) BASOPHILS ABSOLUTE COUNT (BEAKER) 0.03 K/ L 0.01-0.08 (test code = 417) IMMATURE GRANULOCYTES-RELATIVE 1 % 0-1 PERCENT (BEAKER) (test code = 2805) POCT-GLUCOSE [id number] 20:55:27 Test Item Value Reference Range Interpretation Comments POC-GLUCOSE METER 245 mg/dL 70-110 H : TESTED A T [facility] 6720 (BEAKER) (test code = [facility], 153) 33517: High Speed Warper Tender/Techni rayshawn ID = [id number] for MAURICIO CHANCE HEPATIC FUNCTION [id number] 19:10:18 Test Item Value Reference Range Interpretation Comments TOTAL PROTEIN (BEAKER) 7.1 gm/dL 6.0-8.3 Speci men slightly (test code = 770) hemolyzed ALBUMIN (BEAKER) (test 2.8 g/dL 3.5-5.0 L Speci men slightly code = 1145) hemolyzed BILIRUBIN TOTAL 0.5 mg/dL 0.2-1.2 Specimen sli ghtly (BEAKER) (test code = hemoly zed 377) BILIRUBIN DIRECT 0.3 mg/dL 0.1-0.5 Specimen sl ightly (BEAKER) (test code = hemoly zed 706) ALKALINE PHOSPHATASE 168 U/L 40-150 H (BEAKER) (test code = 346) AST (SGOT) (BEAKER) 71 U/L 5-34 H Specimen slightly (test code = 353) hemolyzed ALT (SGPT) (BEAKER) 36 U/L 6-55 Specimen slightly (test code = 347) hemolyzed High Speed Warper Tender ID - DBPOCT-GLUCOSE [id number] 16:19:18 Test Item Value Reference Range Interpretation Comments POC-GLUCOSE METER 207 mg/dL 70-110 H : Will Rep eat Test: (BEAKER) (test code = TESTED AT [place] [address] 1537) [facility], [address]: High Speed Warper Tender/Techni rayshawn ID = [id number] for TH OMPSON, MARLO POCT-GLUCOSE [id number] 11:28:59 Test Item Value Reference Range Interpretation Comments POC-GLUCOSE METER 236 mg/dL 70-110 H : TESTED A T [facility] 6720 (BEAKER) (test code = [facility], 153) 13335: High Speed Warper Tender/Techni rayshawn ID = [id number] for TH OMPSON, MARLO POCT-GLUCOSE [id number] 06:50:23 Test Item Value Reference Range Interpretation Comments POC-GLUCOSE METER 187 mg/dL 70-110 H : TESTED A T [facility] 6720 (BEAKER) (test code = [facility] [place], 1538) 37339: High Speed Warper Tender/Techni rayshawn ID = [id number] for MAURICIO CHANCE BASIC METABOLIC [id number] 04:24:19 Test Item Value Reference Range Interpretation Comments SODIUM (BEAKER) 137 meq/L 136-145 (test code = 381) POTASSIUM (BEAKER) 4.6 meq/L 3.5-5.1 (test code = 379) CHLORIDE (BEAKER) 104 meq/L 98-107 (test code = 382) CO2 (BEAKER) (test 22 meq/L 22-29 code = 355) BLOOD UREA NITROGEN 26 mg/dL 7-21 H (BEAKER) (test code = 354) CREATININE (BEAKER) 0.91 mg/dL 0.57-1.25 (test code = 358) GLUCOSE RANDOM 218 mg/dL 70-105 H (BEAKER) (test code = 652) CALCIUM (BEAKER) 8.5 mg/dL 8.4-10.2 (test code = 697) EGFR (BEAKER) (test 81 mL/min/1.73 ESTIMA CHANDRIKA GFR IS code = 1092) sq m NOT ACCURATE CREATININE CLEARANCE IN PREDICTING GLOMERULAR FILTRATION RATE . ESTIMATED GFR I S NOT APPLICABLE FOR DIALYSIS PATIEN TS. High Speed Warper Tender ID - DEJON MCBC W/PLT COUNT & AUTO [id number] 04:01:05 Test Item Value Reference Range Interpretation Comments WHITE BLOOD CELL COUNT (BEAKER) 12.8 K/ L 3.5-10.5 H (test code = 775) RED BLOOD CELL COUNT (BEAKER) 4.09 M/ L 4.63-6.08 L (test code = 761) HEMOGLOBIN (BEAKER) (test code = 10.7 GM/DL 13.7-17.5 L 410) HEMATOCRIT (BEAKER) (test code = 32.5 % 40.1-51.0 L 411) MEAN CORPUSCULAR VOLUME (BEAKER) 79.5 fL 79.0-92.2 (test code = 753) MEAN CORPUSCULAR HEMOGLOBIN 26.2 pg 25.7-32.2 (BEAKER) (test code = 751) MEAN CORPUSCULAR HEMOGLOBIN CONC 32.9 GM/DL 32.3-36.5 (BEAKER) (test code = 752) RED CELL DISTRIBUTION WIDTH 16.5 % 11.6-14.4 H (BEAKER) (test code = 412) PLATELET COUNT (BEAKER) (test 398 K/CU MM 150-450 code = 756) MEAN PLATELET VOLUME (BEAKER) 9.8 fL 9.4-12.4 (test code = 754) NUCLEATED RED BLOOD CELLS 0 /100 WBC 0-0 (BEAKER) (test code = 413) NEUTROPHILS RELATIVE PERCENT 80 % (BEAKER) (test code = 429) LYMPHOCYTES RELATIVE PERCENT 7 % (BEAKER) (test code = 430) MONOCYTES RELATIVE PERCENT 10 % (BEAKER) (test code = 431) EOSINOPHILS RELATIVE PERCENT 2 % (BEAKER) (test code = 432) BASOPHILS RELATIVE PERCENT 0 % (BEAKER) (test code = 437) NEUTROPHILS ABSOLUTE COUNT 10.23 K/ L 1.78-5.38 H (BEAKER) (test code = 670) LYMPHOCYTES ABSOLUTE COUNT 0.85 K/ L 1.32-3.57 L (BEAKER) (test code = 414) MONOCYTES ABSOLUTE COUNT (BEAKER) 1.31 K/ L 0.30-0.82 H (test code = 415) EOSINOPHILS ABSOLUTE COUNT 0.22 K/ L 0.04-0.54 (BEAKER) (test code = 416) BASOPHILS ABSOLUTE COUNT (BEAKER) 0.05 K/ L 0.01-0.08 (test code = 417) IMMATURE GRANULOCYTES-RELATIVE 1 % 0-1 PERCENT (BEAKER) (test code = 2801) TISSUE [id number] 03:47:43Surgical Pathology Report Case: [id number] Authorizing Provider: Shirin Morataya MD Collected: 12/27/2021 03:13 PM Ordering Location: [facility] Received: 12/27/2021 04:13 PM SERVICES Pathologist: Yunier Ferrell MD Specimen: Soft Tissue, Other, explant id only hardware EXPLANT, SURGICALHARDWARE HARDWARE, REMOVAL:-SURGICAL HARDWARE IDENTIFIED CONSISTENT WITH KNEE REPLACEMENT Signing Pathologist Direct Phone Line: [phone] signed by Yunier Ferrell MD on 12/28/2021 at 3:47 [id number] of total right knee replacementA. Soft tissue, explant ID only hardwareA. Received fresh, labeled with the patient's name, medical record number and "soft tissue" and consists of several pieces of foreign bodies consistent with surgical hardware. The largest is a 7.0 x 4.5 x 2.0 cm opaque white plastic semicircular piece consistent of a tibial plateau that is labeled with "RP TC35, 17.5 mm". Additionally there are 3 other pieces of white opaque plastic second largest measuring 4.5 x 1.1 x 1.1 cm and is opaque white hard plastic cone-shaped quiana. Additionally there is a hard white opaque plastic artificial patella measuring 3.5 x 2.7 x 0.8 cm. There is a 1.5 x 1.3 x 0.5 cm pink hard white fracture piece of plastic. Additionally in the container are 2 silver metallic structures. The first is a 7.4 cm in length and 0.5 cm in diameter silver metallic quiana. Also there is a 3.4 x 2.7 x 0.5 cm silver metallic rectangle. A gross photograph is taken. No sectionswere taken the specimen was submitted for gross only evaluation.[facility], Department of Pathology, [address] [place] [address], [facility], [facility], [address] [place] [address], [facility], [facility], [address] [place] [address], OENR-GLUCOSE [id number] 21:19:49 Test Item Value Reference Range Interpretation Comments POC-GLUCOSE METER 237 mg/dL 70-110 H : TESTED A T [facility] 6720 ([facility]) (test code = [facility], 153) 09332: High Speed Warper Tender/Techni rayshawn ID = [id number] for BECKYDOUGIEJohanneMAURICIO POCT-GLUCOSE [id number] 16:47:23 Test Item Value Reference Range Interpretation Comments POC-GLUCOSE METER 187 mg/dL 70-110 H : TESTED A T [facility] 6720 ([facility]) (test code = [facility], 153) 09788: High Speed Warper Tender/Techni rayshawn ID = [id number] for MARIO JOSE POCT-GLUCOSE [id number] 12:35:43 Test Item Value Reference Range Interpretation Comments POC-GLUCOSE METER 181 mg/dL 70-110 H : TESTED A T [facility] 6720 (BEAKER) (test code = [facility], 1538) 644[address]: High Speed Warper Tender/Techni rayshawn ID = [id number] for MARLO MEZA POCT-GLUCOSE [id number] 07:10:54 Test Item Value Reference Range Interpretation Comments POC-GLUCOSE METER 184 mg/dL 70-110 H : TESTED A T [facility] 6720 (BEAKER) (test code = [facility], 1538) 00961: High Speed Warper Tender/Techni rayshawn ID = [id number] for ON UOHA, HELEN BASIC METABOLIC [id number] 05:31:27 Test Item Value Reference Range Interpretation Comments SODIUM (BEAKER) 136 meq/L 136-145 (test code = 381) POTASSIUM (BEAKER) 4.0 meq/L 3.5-5.1 (test code = 379) CHLORIDE (BEAKER) 103 meq/L 98-107 (test code = 382) CO2 (BEAKER) (test 23 meq/L 22-29 code = 355) BLOOD UREA NITROGEN 23 mg/dL 7-21 H (BEAKER) (test code = 354) CREATININE (BEAKER) 0.87 mg/dL 0.57-1.25 (test code = 358) GLUCOSE RANDOM 205 mg/dL 70-105 H (BEAKER) (test code = 652) CALCIUM (BEAKER) 8.9 mg/dL 8.4-10.2 (test code = 697) EGFR (BEAKER) (test 85 mL/min/1.73 ESTIMA CHANDRIKA GFR IS code = 1092) sq m NOT ACCURATE CREATININE CLEARANCE IN PREDICTING GLOMERULAR FILTRATION RATE . ESTIMATED GFR I S NOT APPLICABLE FOR DIALYSIS PATIEN TS. High Speed Warper Tender ID - DEJON MCBC W/PLT COUNT & AUTO [id number] 04:54:03 Test Item Value Reference Range Interpretation Comments WHITE BLOOD CELL COUNT (BEAKER) 10.3 K/ L 3.5-10.5 (test code = 775) RED BLOOD CELL COUNT (BEAKER) 4.49 M/ L 4.63-6.08 L (test code = 761) HEMOGLOBIN (BEAKER) (test code = 11.9 GM/DL 13.7-17.5 L 410) HEMATOCRIT (BEAKER) (test code = 36.8 % 40.1-51.0 L 411) MEAN CORPUSCULAR VOLUME (BEAKER) 82.0 fL 79.0-92.2 (test code = 753) MEAN CORPUSCULAR HEMOGLOBIN 26.5 pg 25.7-32.2 (BEAKER) (test code = 751) MEAN CORPUSCULAR HEMOGLOBIN CONC 32.3 GM/DL 32.3-36.5 (BEAKER) (test code = 752) RED CELL DISTRIBUTION WIDTH 16.4 % 11.6-14.4 H (BEAKER) (test code = 412) PLATELET COUNT (BEAKER) (test 370 K/CU MM 150-450 code = 756) MEAN PLATELET VOLUME (BEAKER) 10.5 fL 9.4-12.4 (test code = 754) NUCLEATED RED BLOOD CELLS 0 /100 WBC 0-0 (BEAKER) (test code = 413) NEUTROPHILS RELATIVE PERCENT 76 % (BEAKER) (test code = 429) LYMPHOCYTES RELATIVE PERCENT 7 % (BEAKER) (test code = 430) MONOCYTES RELATIVE PERCENT 12 % (BEAKER) (test code = 431) EOSINOPHILS RELATIVE PERCENT 3 % (BEAKER) (test code = 432) BASOPHILS RELATIVE PERCENT 0 % (BEAKER) (test code = 437) NEUTROPHILS ABSOLUTE COUNT 7.88 K/ L 1.78-5.38 H (BEAKER) (test code = 670) LYMPHOCYTES ABSOLUTE COUNT 0.76 K/ L 1.32-3.57 L (BEAKER) (test code = 414) MONOCYTES ABSOLUTE COUNT (BEAKER) 1.23 K/ L 0.30-0.82 H (test code = 415) EOSINOPHILS ABSOLUTE COUNT 0.35 K/ L 0.04-0.54 (BEAKER) (test code = 416) BASOPHILS ABSOLUTE COUNT (BEAKER) 0.03 K/ L 0.01-0.08 (test code = 417) IMMATURE GRANULOCYTES-RELATIVE 1 % 0-1 PERCENT (BEAKER) (test code = 2801) POCT-GLUCOSE [id number] 22:49:30 Test Item Value Reference Range Interpretation Comments POC-GLUCOSE METER 272 mg/dL 70-110 H : TESTED A T [facility] 6720 (BEAKER) (test code = [facility], 1538) 89708: High Speed Warper Tender/Techni rayshawn ID = [id number] for ON UOHA, HELEN POCT-GLUCOSE [id number] 16:31:57 Test Item Value Reference Range Interpretation Comments POC-GLUCOSE METER 242 mg/dL 70-110 H : TESTED A T [facility] 6720 (BEAKER) (test code = [facility], 1538) 56253: High Speed Warper Tender/Techni rayshawn ID = [id number] for TH OMPSON, MARLO POCT-GLUCOSE [id number] 16:31:31 Test Item Value Reference Range Interpretation Comments POC-GLUCOSE METER 212 mg/dL 70-110 H : TESTED A T [facility] 6720 (BEAKER) (test code = [facility], 1538) [id number]: High Speed Warper Tender/Techni rayshawn ID = [id number] for TH OMPSON, MARLO POCT-GLUCOSE [id number] 06:56:23 Test Item Value Reference Range Interpretation Comments POC-GLUCOSE METER 192 mg/dL 70-110 H : TESTED A T [facility] 6720 (BEAKER) (test code = [facility], 1538) [id number]: High Speed Warper Tender/Techni rayshawn ID = [id number] for ON UOHA, HELEN BASIC METABOLIC [id number] 06:22:39 Test Item Value Reference Range Interpretation Comments SODIUM (BEAKER) 137 meq/L 136-145 (test code = 381) POTASSIUM (BEAKER) 4.1 meq/L 3.5-5.1 (test code = 379) CHLORIDE (BEAKER) 104 meq/L 98-107 (test code = 382) CO2 (BEAKER) (test 23 meq/L 22-29 code = 355) BLOOD UREA NITROGEN 28 mg/dL 7-21 H (BEAKER) (test code = 354) CREATININE (BEAKER) 1.10 mg/dL 0.57-1.25 (test code = 358) GLUCOSE RANDOM 160 mg/dL 70-105 H (BEAKER) (test code = 652) CALCIUM (BEAKER) 8.8 mg/dL 8.4-10.2 (test code = 697) EGFR (BEAKER) (test 65 mL/min/1.73 ESTIMA CHANRDIKA GFR IS code = 1092) sq m NOT ACCURATE CREATININE CLEARANCE IN PREDICTING GLOMERULAR FILTRATION RATE . ESTIMATED GFR I S NOT APPLICABLE FOR DIALYSIS PATIEN TS. High Speed Warper Tender ID - RADHA WCBC W/PLT COUNT & AUTO [id number] 05:35:18 Test Item Value Reference Range Interpretation Comments WHITE BLOOD CELL COUNT (BEAKER) 11.3 K/ L 3.5-10.5 H (test code = 775) RED BLOOD CELL COUNT (BEAKER) 4.45 M/ L 4.63-6.08 L (test code = 761) HEMOGLOBIN (BEAKER) (test code = 11.8 GM/DL 13.7-17.5 L 410) HEMATOCRIT (BEAKER) (test code = 37.0 % 40.1-51.0 L 411) MEAN CORPUSCULAR VOLUME (BEAKER) 83.1 fL 79.0-92.2 (test code = 753) MEAN CORPUSCULAR HEMOGLOBIN 26.5 pg 25.7-32.2 (BEAKER) (test code = 751) MEAN CORPUSCULAR HEMOGLOBIN CONC 31.9 GM/DL 32.3-36.5 L (BEAKER) (test code = 752) RED CELL DISTRIBUTION WIDTH 16.7 % 11.6-14.4 H (BEAKER) (test code = 412) PLATELET COUNT (BEAKER) (test 305 K/CU MM 150-450 code = 756) MEAN PLATELET VOLUME (BEAKER) 10.3 fL 9.4-12.4 (test code = 754) NUCLEATED RED BLOOD CELLS 0 /100 WBC 0-0 (BEAKER) (test code = 413) NEUTROPHILS RELATIVE PERCENT 77 % (BEAKER) (test code = 429) LYMPHOCYTES RELATIVE PERCENT 7 % (BEAKER) (test code = 430) MONOCYTES RELATIVE PERCENT 13 % (BEAKER) (test code = 431) EOSINOPHILS RELATIVE PERCENT 2 % (BEAKER) (test code = 432) BASOPHILS RELATIVE PERCENT 1 % (BEAKER) (test code = 437) NEUTROPHILS ABSOLUTE COUNT 8.71 K/ L 1.78-5.38 H (BEAKER) (test code = 670) LYMPHOCYTES ABSOLUTE COUNT 0.82 K/ L 1.32-3.57 L (BEAKER) (test code = 414) MONOCYTES ABSOLUTE COUNT (BEAKER) 1.43 K/ L 0.30-0.82 H (test code = 415) EOSINOPHILS ABSOLUTE COUNT 0.25 K/ L 0.04-0.54 (BEAKER) (test code = 416) BASOPHILS ABSOLUTE COUNT (BEAKER) 0.06 K/ L 0.01-0.08 (test code = 417) IMMATURE GRANULOCYTES-RELATIVE 1 % 0-1 PERCENT (BEAKER) (test code = 2801) POCT-GLUCOSE [id number] 22:47:35 Test Item Value Reference Range Interpretation Comments POC-GLUCOSE METER 231 mg/dL 70-110 H : [facility] (test code = [facility], 1538) [id number]: High Speed Warper Tender/Techni rayshawn ID = [id number] for ON HELEN GRAYSON POCT-GLUCOSE [id number] 16:34:56 Test Item Value Reference Range Interpretation Comments POC-GLUCOSE METER 182 mg/dL 70-110 H : TESTED A T [facility] 6720 (BEAKER) (test code = [facility], 1538) [id number]: High Speed Warper Tender/Techni rayshawn ID = [id number] for MARLO MEZA SARS-COV2/RT-PCR ([facility])2021-12-25 12:35:30 Test Item Value Reference Range Interpretation Comments SARS-COV2/RT-PCR (test Negative Not Detected, Negative, code = 3756451) See external report for linked test SARS-COV-2 PERFORMING LAB [facility] (test code = 3221153) Negative result for this test determines that SARS-CoV-2 RNA was not present in the specimen above the Limit of Detection (LOD). However, Negative results do not preclude SARS-CoV-2 infection and should not be used as the sole basis for treatment or patient management decisions. Negative results mustbe combined with clinical observations, patient history, and epidemiological information. A false negative result may occur if a specimen is improperly collected, transported or handled. A false negative result should be considered if patient's recent exposures or clinical presentation indicate that COVID-19 (SARS-CoV-2) is likely and diagnostic tests for other causes of illness are negative. Re-testing should be considered in cases of suspected false negatives.The limit of detection for this assay is 800 copies/mL.This SARS CoV-2 test is a real-time RT-PCR test intended for the qualitative detection of nucleic acid from SARS-CoV-2 in a nasopharyngeal swab specimen collected from individuals susp ected of COVID-19 by their healthcare provider.This test has not been Food and Drug Administration (FDA) cleared or approved. This is a modified version of an approved Emergency Use Authorization (EUA) and is in the process of review by the FDA. Once authorized by the FDA, the issued EUA will be effective until the declaration that circumstances exist justifying the authorization of the emergency use of in vitro diagnostic tests for detection and/or diagnosis of COVID-19 is terminated under Section 564(b)(2) of the Act or the EUA is revoked under Section 564(g) of the Act.Fact Sheet for Healthcare Providers:https://www.Hookit/sites/default/files/product/documents/Fact_Shee v_ED_Oelyzqvtd_Iyyo_FFME-SyQ-7.pdfFact Sheet for Healthcare Patients:https://www.[employer]/sites/default/files/product/ documents/Lgly_Ymqoh_Zsvpevtv_Mxbk_RRXC-HzF-9.pdfPerforming Laboratory:[place] [id number], [place] [address]WHCMBWOFSZ A1C 2021-12-25 12:06:30 Test Item Value Reference Range Interpretation Comments HEMOGLOBIN A1C 10.1 % See_Comment H [Automated m essage] ELECTROPHORESIS ([facility] [employer]) The system which (test code = 3811) generated this result transmitted ref erence range: <=5.6%. The reference range was not used to int erpret this result as normal/abnormal . "The A1c is measured using a NGSP-certified method. HbA1c value equal to or greater than 6.5% as thediagnosis cutoff for diabetes. An HbA1c value of 5.7- 6.4% indicates increased risk for diabetes (prediabetes)."High Speed Warper Tender ID - ADMPOCT- GLUCOSE [id number] 12:02:09 Test Item Value Reference Range Interpretation Comments POC-GLUCOSE METER 108 mg/dL 70-110 : TESTED A T [facility] [address] ([facility] [employer]) (test code = [place], 1538) [address]: High Speed Warper Tender/Techni rayshawn ID = [id number] for MARLO MEZA RAD, KNEE, 3 VIEWS, [id number] 10:13:00Is this procedure to be performed with weight bearing?->Non-Weight BearingReason for exam:->Evaluate componentsShould this be performed at the bedside?->Yes [facility] 1945 Sex: MFINAL REPORT Exam: RAD, KNEE, 3 VIEWS, RIGHT, RAD, KNEE, 3 VIEWS, LEF TDate: 12/25/2021 9:53 AM Indication:R knee PJIComparison: None DISCUSSION/IMPRESSION: AP, lateral andoblique views of the bilateral were obtained. Left kneeStatus post total arthroplasty, hardware appears intact in anatomical alignment.Up to 2 mm of periprosthetic lucency seen adjacent to the tibial component.Mild to moderate prepatellar soft tissue edema.Remainder of osseous structures appear intact.Vascular calcifications noted. 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 Recommend orthopedic evaluation. Findings discussed over the phone with JESUS Bowman at 10:09 AM. Signed: Yakelin Bernstein Verified Date/Time: 12/25/2021 10:13:33 Reading Location: [facility] Radiology Reading Room RAD, KNEE, 3 VIEWS, [id number] 10:13:00Is this procedure to be performed with weight bearing?->Non-Weight BearingReason for exam:->R knee PJIShould this be performed at the bedside?->Yes [facility] 1945 Sex: MFINAL REPORT Exam: RAD, KNEE, 3 VIEWS, RIGHT, RAD, KNEE, 3 VIEWS, LEF TDate: 12/25/2021 9:53 AM Indication:R knee PJIComparison: None DISCUSSION/IMPRESSION: AP, lateral andoblique views of the bilateral were obtained. Left kneeStatus post total arthroplasty, hardware appears intact in anatomical alignment.Up to 2 mm of periprosthetic lucency seen adjacent to the tibial component.Mild to moderate prepatellar soft tissue edema.Remainder of osseous structures appear intact.Vascular calcifications noted. 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 Recommend orthopedic evaluation. Findings discussed over the phone with JESUS Bowman at 10:09 AM. Signed: Yakelin Bernstein MDReport Verified Date/Time: 12/25/2021 10:13:33 [facility] CBC W/PLT COUNT & AUTO [id number] 07:14:42 Test Item Value Reference Range Interpretation Comments WHITE BLOOD CELL COUNT (BEAKER) 12.2 K/ L 3.5-10.5 H (test code = 775) RED BLOOD CELL COUNT (BEAKER) 4.36 M/ L 4.63-6.08 L (test code = 761) HEMOGLOBIN (BEAKER) (test code = 11.6 GM/DL 13.7-17.5 L 410) HEMATOCRIT (BEAKER) (test code = 34.7 % 40.1-51.0 L 411) MEAN CORPUSCULAR VOLUME (BEAKER) 79.6 fL 79.0-92.2 (test code = 753) MEAN CORPUSCULAR HEMOGLOBIN 26.6 pg 25.7-32.2 (BEAKER) (test code = 751) MEAN CORPUSCULAR HEMOGLOBIN CONC 33.4 GM/DL 32.3-36.5 (BEAKER) (test code = 752) RED CELL DISTRIBUTION WIDTH 16.3 % 11.6-14.4 H (BEAKER) (test code = 412) PLATELET COUNT (BEAKER) (test 248 K/CU MM 150-450 code = 756) MEAN PLATELET VOLUME (BEAKER) 10.2 fL 9.4-12.4 (test code = 754) NUCLEATED RED BLOOD CELLS 0 /100 WBC 0-0 (BEAKER) (test code = 413) (CELLAVISION MANUAL DIFF)2021-12-25 07:14:35 Test Item Value Reference Range Interpretation Comments NEUTROPHILS - REL 75 % (CELLAVISION)(BEAKER) (test code = 2816) LYMPHOCYTES - REL 10 % (CELLAVISION)(BEAKER) (test code = 2817) MONOCYTES - REL 11 % (CELLAVISION)(BEAKER) (test code = 2818) EOSINOPHILS - REL 1 % (CELLAVISION)(BEAKER) (test code = 2819) BASOPHILS - REL 2 % (CELLAVISION)(BEAKER) (test code = 2820) BANDS - REL (CELLAVISION)(BEAKER) 1 % 0-10 (test code = 2826) NEUTROPHILS - ABS 9.15 K/ul 1.78-5.38 H (CELLAVISION)(BEAKER) (test code = 2830) LYMPHOCYTES - ABS 1.22 K/ul 1.32-3.57 L (CELLAVISION)(BEAKER) (test code = 2831) MONOCYTES - ABS 1.34 K/uL 0.30-0.82 H (CELLAVISION)(BEAKER) (test code = 2832) EOSINOPHILS - ABS 0.12 K/uL 0.04-0.54 (CELLAVISION)(BEAKER) (test code = 2834) BASOPHILS - ABS 0.24 K/uL 0.01-0.08 H (CELLAVISION)(BEAKER) (test code = 2835) BANDS - ABS (CELLAVISION)(BEAKER) 0.12 K/uL 0.00-0.80 (test code = 2840) TOTAL COUNTED (BEAKER) (test code = 100 1351) RBC MORPHOLOGY (BEAKER) (test code Normal = 762) WBC MORPHOLOGY (BEAKER) (test code Normal = 487) GIANT PLATELETS (BEAKER) (test code Present = 313) ARTIFACT (CELLAVISION)(BEAKER) Present (test code = 3432) PLATELET CONCENTRATION Adequate (CELLAVISION)(BEAKER) (test code = 3438) High Speed Warper Tender ID - melissa Drew comments: Slide comments:POCT-GLUCOSE METER 2021-12-25 06:24:20 Test Item Value Reference Range Interpretation Comments POC-GLUCOSE METER 130 mg/dL 70-110 H : TESTED A T [facility] [address] (BEAKER) (test code = ALEXANDER [place], 1538) [address]: High Speed Warper Tender/Techni rayshawn ID = [id number] for MAURICIO CHANCE VANCOMYCIN LEVEL, [id number] 05:12:39 Test Item Value Reference Range Interpretation Comments VANCOMYCIN RANDOM (BEAKER) (test code < ug/mL = 523) Reference Range: No NormalsOperator ID - ADMINOperator ID - DBC-REACTIVE PROTEIN 2021-12-25 04:56:43 Test Item Value Reference Range Interpretation Comments C-REACTIVE PROTEIN (BEAKER) (test 35.60 mg/dL 0.00-0.50 H code = 676) High Speed Warper Tender ID - [id number] 04:56:42 Test Item Value Reference Range Interpretation Comments MAGNESIUM (BEAKER) (test code = 1.7 mg/dL 1.6-2.6 627) High Speed Warper Tender ID - [id number] 04:56:42 Test Item Value Reference Range Interpretation Comments PHOSPHORUS (BEAKER) (test code = 3.1 mg/dL 2.3-4.7 604) High Speed Warper Tender ID - ADMINBASIC METABOLIC [id number] 04:56:41 Test Item Value Reference Range Interpretation Comments SODIUM (BEAKER) 138 meq/L 136-145 (test code = 381) POTASSIUM (BEAKER) 4.1 meq/L 3.5-5.1 (test code = 379) CHLORIDE (BEAKER) 106 meq/L 98-107 (test code = 382) CO2 (BEAKER) (test 22 meq/L 22-29 code = 355) BLOOD UREA NITROGEN 25 mg/dL 7-21 H (BEAKER) (test code = 354) CREATININE (BEAKER) 1.04 mg/dL 0.57-1.25 (test code = 358) GLUCOSE RANDOM 132 mg/dL 70-105 H (BEAKER) (test code = 652) CALCIUM (BEAKER) 8.8 mg/dL 8.4-10.2 (test code = 697) EGFR (BEAKER) (test 69 mL/min/1.73 ESTIMA CHANDRIKA GFR IS code = 1092) sq m NOT ACCURATE CREATININE CLEARANCE IN PREDICTING GLOMERULAR FILTRATION RATE . ESTIMATED GFR I S NOT APPLICABLE FOR DIALYSIS PATIEN TS. High Speed Warper Tender ID - ADMINPT/[id number] 04:54:02 Test Item Value Reference Range Interpretation Comments PROTIME (BEAKER) (test 17.2 seconds 11.9-14.2 H code = 759) INR (BEAKER) (test 1.43 See_Comment [Automat ed code = 370) message] The sy stem which generated this result transmitted reference range : <=5.90. The reference range was not used to interpret this result as normal/abnormal . PARTIAL THROMBOPLASTIN 36.0 seconds 22.5-36.0 TIME (BEAKER) (test code = 760) RECOMMENDED COUMADIN/WARFARIN INR THERAPY RANGESSTANDARD DOSE: 2.0 - 3.0 Includes: PROPHYLAXIS forvenous thrombosis, systemic embolization; TREATMENT for venous thrombosis and/or pulmonary embolus.HIGH RISK: Target INR is 2.5-3.5 for patients with mechanical heart valves.- XR KNEE 1 OR 2 V [id number] 09:26:00 [facility] 1945 Sex: M Patient Name: KENY LAL Unit No: [id number] EXAMS: CPT CODE: [id number] XR KNEE 1 OR 2 [place] [address] LEFT KNEE 2 VIEWS PORTABLE COMMENT: Thepatient is status post joint replacement which is articulating normally. at 0926 Reported and signed by: Omar Hall MD CC: Rina Gonzales MD Technologist: NALDO JOHNSON. RT(R) Transcribed D/ (925) tMARJCL [facility] NAME: KENY LAL [address] PHYS: GEORGIE.[id number] - Rina Gonzales : 1945 AGE: 75 SEX: M [place], [place] [address] LOC: Y.O19 A PHONE #: [phone] EXAM DATE: 10/07/2020 STATUS: DIS IN FAX #: [phone] RAD #: D/C DT 10/07/2020 PAGE 1 Signed Report Patient Name: KENY LAL Unit No: [id number] EXAMS: CPT CODE: [id number] XR KNEE 1 OR 2 V LT [address]00 <Continued> Orig Print D/T: S: 10/10/2020 (0929) [facility] NAME: KENY LAL [address] [facility] PHYS: PATAN.06 - Gonzales,Rina Byrd : 1945 AGE: 75 SEX: M Rickie [id number] LOC: Y.O19 A PHONE #: [phone] EXAM DATE: 10/07/2020 STATUS: DIS IN FAX #: [phone] RAD #: D/C DT 10/07/2020 PAGE 2 Signed ReportGLUBED 2020-10-07 10:02:00 Test Item Value Reference Range Interpretation Comments GLUBED (test code = GLUBED) 181 mg/dL 60-125 H Novel Coronavirus 2018 [id number] 07:39:00 Test Item Value Reference Range Interpretation [...] for the identification of SARS-CoV-2 RNA usingthe GrupHediye M2000 Sy stem under the FDA Emergen cy UseAuthorizatio n. The testing is perf ormed by personneltraine d in the procedures for the GrupHediye M2000 molecular diagnostic SARS-CoV-2 assa y in vitro. SPECIMEN COMMENT: NNovel Coronavirus 2019 [id number] 07:39:00 Test Item Value Reference Range Interpretation [...] personneltraine d in the procedures for the Members[employer]ite000 molecular diagnostic SARS-CoV-2 assa y in vitro. SPECIMEN COMMENT: NGLYCOSYLATED HEMOGLOBIN (HA1C)2020-10-04 20:13:00 Test Item Value Reference Range Interpretation Comments GLYCOSYLATED 8.0 % 4.8-5.9 H Any condition t hat shortens HEMOGLOBIN (HA1C) erythocyte survival or (test code = GLYHGB) decreas esmean erythrocyte age (e.g., frnady very from acute blood los s,hemolytic anemai) [...] for these patients.DONE A T: [facility] [address] [place] [address] GLYCOSYLATED HEMOGLOBIN (HA1C)2020-10-04 20:12:00 Test Item Value [...] be considered for these patients. COMPREHENSIVE METABOLIC [id number] 16:22:00 Test Item Value Reference Range Interpretation [...] RATE (test code = GFR) mL/mi n/1.73 q2Kaibbwhdg Range:Healthy Adults >90 mL/min/1.73 m2 For Chronic [...] H TOTAL (test code = ALKP) PROTHROMBIN [id number] 16:05:00 Test Item Value Reference Range Interpretation [...] Patient is on Heparin Drip? NOTHROMBOPLASTIN TIME [id number] 16:05:00 Test Item Value Reference Range Interpretation [...]
[2022-02-19 21:09] LABS: Urine Blood Trace-intact (Negative); Urine Glucose 2+ (Negative); Urine Protein Negative (Negative); Urine pH 5.5 (5.0-7.0)
[2022-02-19 21:39] LABS: Urine Bacteria <20 /HPF (NONE SEEN); Urine Mucus 1+ /HPF (NONE SEEN); Urine RBC <5 /HPF (NONE SEEN)
[2022-02-19] MEDS ORDERED: Meropenem 1000 MG/VIAL IV ONE (21:39)
[2022-02-19] MEDS ORDERED: FAMOTIDINE 20 MG/2 ML VIAL IV ONE (21:39)
[2022-02-19] MEDS ORDERED: NA CHLORIDE 0.9% 2,000 ML ONE (21:39)
[2022-02-19] MEDS ORDERED: ACETAMINOPHEN 500 MG TAB ONE (21:39)
[2022-02-19] MEDS ORDERED: NA CHLORIDE 0.9% 100 ML IV ONE (21:39)
[2022-02-19 21:55] LABS: Absolute Lymphocytes (CBC) 0.9 K/uL (0.7-4.9); Hematocrit 32.7 % (39.6-49.0); Lymphocytes % 5.6 % (15.3-44.8); MPV 7.2 fL (7.6-11.3); RBC Red Blood Cell Count 4.16 M/uL (4.33-5.43)
[2022-02-19 22:14] LABS: Protime INR 1.26
[2022-02-19 22:15] LABS: Albumin 2.7 g/dL (3.4-5.0); Bilirubin Direct 0.2 mg/dL (0-0.2); Bilirubin Total 0.4 mg/dL (0.2-1.0); Magnesium 1.9 mg/dL (1.8-2.4); Potassium 3.8 mmol/L (3.5-5.1); Protein, Total 7.6 g/dL (6.4-8.2); Troponin High Sensitivity 21.2 pg/mL (<58.9)
[2022-02-19 22:29] LABS: SARS-COV-2 RT PCR NEGATIVE (NEGATIVE)
--- NOTE | 2022-02-19 23:09 | EDPHYS ---
Physician Documentation [facility] Name: Dion Alfonso Age: 76 yrs Sex: Male : 1945 Arrival Date: 02/19/2022 Time: 20:49 Bed 14 Private MD: ED Physician Harsha Woodruff HPI: 02/19 23:01 This 76 yrs old Male presents to ER via EMS with complaints of Altered Mental quirino Status. 23:01 The patient presents with confusion, decreased mental status. Onset: The quirino symptoms/episode began/occurred 2 day(s) ago. Possible causes: sepsis, the patient has had a history of a fever, the patient has a known UTI history. Associated signs and symptoms: Pertinent positives: confusion. Current symptoms: In the emergency department the patient's symptoms have improved, moderately. Patient's baseline: Neuro: alert and fully oriented. The patient has not experienced similar symptoms in the past. Historical: - Allergies: 20:57 No Known Allergies; ld1 - PMHx: 20:57 Diabetes - NIDDM; Hypertension; ld1 - PSHx: 20:57 CRISSY knee replacement; ld1 - Immunization history:: Adult Immunizations up to date, Client reports receiving the 2nd dose of the Covid vaccine. - Social history:: Smoking status: Patient denies any tobacco usage or history of. Patient/guardian denies using alcohol. ROS: 23:03 Constitutional: Negative for fever, chills, and weight loss, Eyes: Negative for injury, quirino pain, redness, and discharge, ENT: Negative for injury, pain, and discharge, Neck: Negative for injury, pain, and swelling, Cardiovascular: Negative for chest pain, palpitations, and edema, Respiratory: Negative for shortness of breath, cough, wheezing, and pleuritic chest pain, Abdomen/GI: Negative for abdominal pain, nausea, vomiting, diarrhea, and constipation, Back: Negative for injury and pain, MS/Extremity: Negative for injury and deformity, Skin: Negative for injury, rash, and discoloration, Psych: Negative for depression, anxiety, suicide ideation, homicidal ideation, and hallucinations, Allergy/Immunology: Negative for hives, rash, and allergies, Endocrine: Negative for neck swelling, polydipsia, polyuria, polyphagia, and marked weight changes, Hematologic/Lymphatic: Negative for swollen nodes, abnormal bleeding, and unusual bruising. 23:03 : Positive for urinary symptoms, urinary frequency, small amounts, burning with urination. 23:03 MS/extremity: Positive for swelling, of the right knee, no pain , normal rom , no red not hot. Exam: 23:03 Constitutional: This is a well developed, well nourished patient who is awake, alert, quirino and in no acute distress. Head/Face: Normocephalic, atraumatic. Eyes: Pupils equal round and reactive to light, extra-ocular motions intact. Lids and lashes normal. Conjunctiva and sclera are non-icteric and not injected. Cornea within normal limits. Periorbital areas with no swelling, redness, or edema. ENT: Nares patent. No nasal discharge, no septal abnormalities noted. Tympanic membranes are normal and external auditory canals are clear. Oropharynx with no redness, swelling, or masses, exudates, or evidence of obstruction, uvula midline. Mucous membranes moist. Neck: Trachea midline, no thyromegaly or masses palpated, and no cervical lymphadenopathy. Supple, full range of motion without nuchal rigidity, or vertebral point tenderness. No Meningismus. Chest/axilla: Normal chest wall appearance and motion. Nontender with no deformity. No lesions are appreciated. Cardiovascular: Regular rate and rhythm with a normal S1 and S2. No gallops, murmurs, or rubs. Normal PMI, no JVD. No pulse deficits. Respiratory: Lungs have equal breath sounds bilaterally, clear to auscultation and percussion. No rales, rhonchi or wheezes noted. No increased work of breathing, no retractions or nasal flaring. Abdomen/GI: Soft, non-tender, with normal bowel sounds. No distension or tympany. No guarding or rebound. No evidence of tenderness throughout. Back: No spinal tenderness. No costovertebral tenderness. Full range of motion. Skin: Warm, dry with normal turgor. Normal color with no rashes, no lesions, and no evidence of cellulitis. Neuro: Awake and alert, GCS 15, oriented to person, place, time, and situation. Cranial nerves II-XII grossly intact. Motor strength 5/5 in all extremities. Sensory grossly intact. Cerebellar exam normal. Normal gait. Psych: Awake, alert, with orientation to person, place and time. Behavior, mood, and affect are within normal limits. 23:03 : CVA tenderness, is absent, Male external genitalia: normal, Bladder: is normal, Sexual behavior: the patient is not sexually active. 23:14 ECG was reviewed by the Attending Physician. [facility] Vital Signs: 20:51 BP 133 / 65; Pulse 84; Resp 25; Temp 101.3; Pulse Ox 96% on R/A; Weight 113.4 kg; ld1 Height 5 ft. 11 in. (180.34 cm); Pain 0/10; 22:48 BP 106 / 55; Pulse 82; Resp 14; Pulse Ox 95% on R/A; ld1 23:37 BP 102 / 57; Pulse 81; Resp 18; Temp 98.3(O); Pulse Ox 97% on R/A; ld1 20:51 Body Mass Index 34.87 (113.40 kg, 180.34 cm) ld1 MDM: 21:12 Patient medically screened. [facility] 23:05 Differential diagnosis: nonspecific abdominal pain, UTI, urinary retention, quirino prostatitis, urethritis, viral Infection, bacterial infection, bronchitis, pneumonia UTI, gastroenteritis. Differential Diagnosis altered mental status, sepsis. Differential Diagnosis: pneumonia, sepsis, UTI, volume depletion. Data reviewed: vital signs, nurses notes, lab test result(s), EKG, radiologic studies, CT scan, plain films. Data interpreted: supervisor plate pasting: rate is 82 beats/min, rhythm is regular, Pulse oximetry: on room air is 95 %. Test interpretation: by ED physician or midlevel provider: ECG, plain radiologic studies. Counseling: I had a detailed discussion with the patient and/or guardian regarding: the historical points, exam findings, and any diagnostic results supporting the discharge/admit diagnosis, lab results, radiology results, the need for further work-up and treatment in the hospital. 02/19 20:59 Order name: Urine Culture [facility] 02/19 20:59 Order name: Urine Microscopic Only; Complete Time: 22:36 [facility] 02/19 21:09 Order name: Urine Dipstick-Ancillary; Complete Time: 22:36 [facility] 02/19 21:11 Order name: Basic Metabolic Panel; Complete Time: 23:24 [facility] 02/19 21:11 Order name: CBC with Diff; Complete Time: 22:36 [facility] 02/19 21:11 Order name: LFT's; Complete Time: 23:24 [facility] 02/19 21:11 Order name: Magnesium; Complete Time: 23:24 [facility] 02/19 21:11 Order name: NT PRO-BNP; Complete Time: 23:24 [facility] 02/19 21:11 Order name: PT-INR; Complete Time: 22:36 [facility] 02/19 21:11 Order name: Troponin HS; Complete Time: 23:24 [facility] 02/19 21:11 Order name: Blood Culture Adult (2) [facility] 02/19 21:11 Order name: Lactate; Complete Time: 22:36 [facility] 02/19 21:11 Order name: Procalcitonin; Complete Time: 22:36 [facility] 02/19 21:11 Order name: COVID-19/FLU A+B (Document "Date of Onset" if Symptomatic); Complete Time: [facility] 22:36 02/19 21:11 Order name: XRAY Chest (1 view) [facility] 02/19 22:37 Order name: Glucose, Ancillary Testing; Complete Time: 22:44 [facility] 02/19 22:44 Order name: Knee Right 3 View XRAY [facility] 02/19 23:13 Order name: Lipase; Complete Time: 23:24 [facility] 02/19 23:54 Order name: CT Stone Protocol [facility] 02/20 02:05 Order name: US Abdomen Limited [facility] 02/20 03:47 Order name: CBC with Automated Diff [facility] 02/20 04:00 Order name: Basic Metabolic Panel [facility] 02/20 04:00 Order name: Phosphorus [facility]TN 02/20 04:00 Order name: Magnesium [facility] 02/20 04:25 Order name: Procalcitonin [facility] 02/19 20:59 Order name: Urine Dipstick-Ancillary (obtain specimen); Complete Time: 21:10 [facility] 02/19 21:11 Order name: EKG; Complete Time: 21:11 [facility] 02/19 21:11 Order name: Cardiac monitoring; Complete Time: 21:20 [facility] 02/19 21:11 Order name: EKG - Nurse/Tech; Complete Time: 22:13 [facility] 02/19 21:11 Order name: IV Saline Lock; Complete Time: 21:49 [facility] 02/19 21:11 Order name: Labs collected and sent; Complete Time: 21:48 [facility] 02/19 21:11 Order name: O2 Per Protocol; Complete Time: 21:20 [facility] 02/19 21:11 Order name: O2 Sat Monitoring; Complete Time: 21:20 quirino EC:14 Rate is 82 beats/min. Rhythm is regular. QRS [place] is Normal. CT interval is normal. QRS quirino interval is normal. QT interval is normal. No Q waves. T waves are Normal in leads II, III, aVF. ST Segment is depressed in leads II, III, aVF. Clinical impression: NSR w/ Non-specific ST/T Changes. Interpreted by me. Reviewed by me. Administered Medications: 21:46 Drug: Pepcid (famotidine) 20 mg Route: IVP; Site: right antecubital; ld1 21:47 Drug: NS 0.9% 1000 ml Route: IV; Rate: 1 bolus; Site: right antecubital; ld1 21:47 Drug: Tylenol 1000 mg Route: PO; ld1 21:47 Drug: Meropenem 1 grams Route: IV; Rate: per protocol; Site: right antecubital; ld1 02/20 07:12 Follow up: Response: No adverse reaction; IV Status: Completed infusion; IV Intake: lg3 100ml 02/19 21:55 Drug: NS 0.9% 1000 ml Route: IV; Rate: 125 ml/hr; Site: right antecubital; ld1 23:37 Drug: NS 0.9% 1000 ml Route: IV; Rate: 1 bolus; Site: right antecubital; ld1 02/20 07:11 Follow up: Response: No adverse reaction; IV Status: Completed infusion; IV Intake: lg3 1000ml 02/19 23:38 Drug: vancoMYCIN 1 grams Route: IVPB; Infused Over: 2 hrs; Site: right antecubital; ld1 02/20 07:11 Follow up: Response: No adverse reaction; IV Status: Completed infusion; IV Intake: lg3 250ml Disposition Summary: 02/19/22 23:08 Hospitalization Ordered Hospitalization Status: Observation quirino Provider: Elio Davalos cha Condition: Stable quirino Problem: new quirino Symptoms: have improved quirino Bed/Room Type: Standard quirino Location: Telemetry/MedSurg (observation)(02/20/22 10:42) bd Room Assignment: 205(02/20/22 10:42) bd Diagnosis - Elevated white blood cell count quirino - Altered mental status, unspecified quirino - Fever, unspecified quirino - UTI/ Urinary tract infection, site not specified quirino - Type 2 diabetes mellitus with hyperglycemia quirino - Calculus of gallbladder without cholecystitis without obstruction quirino Forms: - Medication Reconciliation Form quirino - SBAR form quirino Signatures: Dispatcher [employer] EDTN Maira Barclay Corey, MD MD cha Garcia, Cindy, RN RN Carrie Tejada RN RN parish1 Saranya Vega PA PA sb3 Belinda Langston RN lg3 Corrections: (The following items were deleted from the chart) 02/19 23:12 23:07 LIPASE+C.LAB.BRZ ordered. EDMS EDMS 02/20 00:24 02/19 23:08 Telemetry/MedSurg (observation) [facility] 02/20 00:24 02/19 23:08 quirino 02/20 10:42 00:24 [facility] ER HOLD cg bd 10:42 00:24 ERHOLD- cg bd
--- NOTE | 2022-02-19 23:09 | ER ---
Nurse's Notes [facility] Name: Dion Alfonso Age: 76 yrs Sex: Male : 1945 Arrival Date: 02/19/2022 Time: 20:49 Bed 14 Private MD: Diagnosis: Elevated white blood cell count;Altered mental status, unspecified;Fever, unspecified;UTI/ Urinary tract infection, site not specified;Type 2 diabetes mellitus with hyperglycemia;Calculus of gallbladder without cholecystitis without obstruction Presentation: 02/19 20:51 Chief complaint: EMS states: toned out for altered mental status - son called us ld1 because pt did not know date or year. Son reports recent UTI. Pt c/o urgency and frequent urination. Coronavirus screen: At this time, the client does not indicate any symptoms associated with coronavirus-19. Ebola Screen: No symptoms or risks identified at this time. Initial Sepsis Screen: Does the patient meet any 2 criteria? No. Patient's initial sepsis screen is negative. Does the patient have a suspected source of infection? No. Patient's initial sepsis screen is negative. Risk Assessment: Do you want to hurt yourself or someone else? Patient reports no desire to harm self or others. Onset of symptoms was February 19, 2022. 20:51 Method Of Arrival: EMS: [facility] ld1 20:51 Acuity: RG 2 bb Triage Assessment: 20:57 General: Appears in no apparent distress. comfortable, Behavior is calm, cooperative, ld1 appropriate for age. Pain: Denies pain. EENT: No signs and/or symptoms were reported regarding the EENT system. Neuro: Level of Consciousness is awake, alert, obeys commands, Oriented to person, place, time, situation. Cardiovascular: Capillary refill < 3 seconds Patient's skin is warm and dry. Respiratory: Airway is patent Respiratory effort is even, unlabored. GI: Abdomen is flat, non-distended. : Reports urgency, urinary frequency. Derm: No signs and/or symptoms reported regarding the dermatologic system. Musculoskeletal: No signs and/or symptoms reported regarding the musculoskeletal system. Historical: - Allergies: 20:57 No Known Allergies; ld1 - PMHx: 20:57 Diabetes - NIDDM; Hypertension; ld1 - PSHx: 20:57 CRISSY knee replacement; ld1 - Immunization history:: Adult Immunizations up to date, Client reports receiving the 2nd dose of the Covid vaccine. - Social history:: Smoking status: Patient denies any tobacco usage or history of. Patient/guardian denies using alcohol. Screenin:59 Abuse screen: Denies threats or abuse. Denies injuries from another. Nutritional ld1 screening: No deficits noted. Tuberculosis screening: No symptoms or risk factors identified. Fall Risk None identified. Assessment: 20:59 Reassessment: See triage assessment. ld1 22:48 Reassessment: Patient appears in no apparent distress at this time. Patient and/or ld1 family updated on plan of care and expected duration. Pain level reassessed. Patient is alert, oriented x 3, equal unlabored respirations, skin warm/dry/pink. 23:37 Reassessment: Patient appears in no apparent distress at this time. Patient and/or ld1 family updated on plan of care and expected duration. Pain level reassessed. Patient is alert, oriented x 3, equal unlabored respirations, skin warm/dry/pink. Vital Signs: 20:51 BP 133 / 65; Pulse 84; Resp 25; Temp 101.3; Pulse Ox 96% on R/A; Weight 113.4 kg; ld1 Height 5 ft. 11 in. (180.34 cm); Pain 0/10; 22:48 BP 106 / 55; Pulse 82; Resp 14; Pulse Ox 95% on R/A; ld1 23:37 BP 102 / 57; Pulse 81; Resp 18; Temp 98.3(O); Pulse Ox 97% on R/A; ld1 20:51 Body Mass Index 34.87 (113.40 kg, 180.34 cm) ld1 ED Course: 20:49 Patient arrived in ED. mw2 20:51 Carrie Cui, RN is Primary Nurse. ld1 20:57 Triage completed. ld1 20:57 Arm band placed on left wrist. ld1 20:59 Patient has correct armband on for positive identification. Bed in low position. Call ld1 light in reach. Side rails up X2. vehicle monitor technician on. Pulse ox on. NIBP on. Door closed. Noise minimized. Warm blanket given. 20:59 No provider procedures requiring assistance completed. ld1 21:10 Urine collected: clean catch specimen, clear. wm 21:12 Harsha Woodruff MD is Attending Physician. quirino 21:48 Inserted saline lock: 20 gauge in right antecubital area, using aseptic technique. zm Blood collected. 22:29 XRAY Chest (1 view) In Process Unspecified. EDIN 23:08 Elio Davalos MD is Hospitalizing Provider. quirino 23:56 Knee Right 3 View XRAY In Process Unspecified. EDMS Administered Medications: 21:46 Drug: Pepcid (famotidine) 20 mg Route: IVP; Site: right antecubital; ld1 21:47 Drug: NS 0.9% 1000 ml Route: IV; Rate: 1 bolus; Site: right antecubital; ld1 21:47 Drug: Tylenol 1000 mg Route: PO; ld1 21:47 Drug: Meropenem 1 grams Route: IV; Rate: per protocol; Site: right antecubital; ld1 02/20 07:12 Follow up: Response: No adverse reaction; IV Status: Completed infusion; IV Intake: lg3 100ml 02/19 21:55 Drug: NS 0.9% 1000 ml Route: IV; Rate: 125 ml/hr; Site: right antecubital; ld1 23:37 Drug: NS 0.9% 1000 ml Route: IV; Rate: 1 bolus; Site: right antecubital; ld1 02/20 07:11 Follow up: Response: No adverse reaction; IV Status: Completed infusion; IV Intake: lg3 1000ml 02/19 23:38 Drug: vancoMYCIN 1 grams Route: IVPB; Infused Over: 2 hrs; Site: right antecubital; ld1 02/20 07:11 Follow up: Response: No adverse reaction; IV Status: Completed infusion; IV Intake: lg3 250ml Intake: 07:11 IV: 1000ml; Total: 1000ml. lg3 07:11 IV: 250ml; Total: 1250ml. lg3 07:12 IV: 100ml; Total: 1350ml. lg3 Outcome: 02/19 23:08 Decision to Hospitalize by Provider. [facility] 02/20 12:37 Patient left the ED. ww Signatures: Dispatcher [employer] EDIN Harsha Woodruff MD MD cha Ballard, Brenda, RN RN Oliver Landry [facility] Belinda Langston RN RN 3 Carrie Cui RN RN ld1 Amanda Martinez Whitney, RN RN Yeimi Cruz Corrections: (The following items were deleted from the chart) 02/19 23:09 20:51 Acuity: RG 3 ld1 bb
[2022-02-19] MEDS ORDERED: VANCOMYCIN 1 GM/VIAL ONE (23:29)
[2022-02-19] MEDS ORDERED: NA CHLORIDE 0.9% 1,000 ML ONE (23:29)
[2022-02-20] MEDS ORDERED: ACETAMINOPHEN 500 MG TAB PO PRN (01:18)
[2022-02-20] MEDS ORDERED: VANCOMYCIN 1 GM in NA CHLORIDE 0.9% 250 ML IVPB SCH (01:18)
[2022-02-20] MEDS: NA CHLORIDE 0.9% 1,000 ML IV SCH ×2 (01:18→11:18)
[2022-02-20] MEDS ORDERED: ONDANSETRON 4 MG/2 ML VIAL IV PRN (01:18)
[2022-02-20] MEDS ORDERED: NA CHLORIDE 0.9% 1,000 ML ONE (01:41)
[2022-02-20] MEDS ORDERED: VANCOMYCIN 1 GM/VIAL ONE (01:51)
[2022-02-20] MEDS ORDERED: NA CHLORIDE 0.9% 250 ML ONE (01:51)
--- NOTE | 2022-02-20 01:52 | P.HP ---
Certification for Inpatient Patient admitted to: Inpatient With expected LOS: <2 Midnights Patient will require the following post-hospital care: None Practitioner: I am a practitioner with admitting privileges, knowledge of patient current condition, hospital course, and medical plan of care. Services: Services provided to patient in accordance with Admission requirements found in Title 42 Section 412.3 of the Code of Federal Regulations Patient History Date of Service: 02/20/22 Reason for admission: UTI, AMS History of Present Illness: Patient is a 76-year-old male with past medical history of type 2 diabetes [id number], hypertension, CKD 3 who presented to the ED via EMS with family stating he was experiencing alteration in mental status. They state that he could not recall the date or year when he is typically oriented x 4. Patient is only complaining of dysuria and frequency. Patient was initially febrile with a temperature of 101.3 Fahrenheit and RR of 25. Labs significant for Pro-Boris 0.33, WBC 15, urine positive for UTI. He was given meropenem, vancomycin, Tylenol, and sepsis fluids in the ED. Upon my assessment, patient is afebrile and vital signs stable. Patient states that he was confused earlier but is now oriented x4. He is resting comfortably. Family is not at bedside. Will admit patient for further evaluation and management. Allergies No Known Allergies Allergy (Verified 02/14/17 01:59) Home Medications: Budesonide/Formoterol Fumarate [Symbicort 160-4.5 Mcg Inhaler] 1 puff IH DAILY 02/14/17 Cetirizine HCl 15 mg PO BEDTIME 02/14/17 Fluticasone Propionate [Flovent Diskus] 50 mcg IH DAILY 02/14/17 Losartan Potassium 100 mg PO DAILY 02/14/17 Meloxicam 7.5 mg PO BID 02/14/17 Metformin HCl 850 mg PO TID 02/14/17 Oxybutynin Chloride 5 mg PO BID 02/14/17 Saxagliptin HCl [Onglyza] 5 mg PO DAILY 02/14/17 Simvastatin 80 mg PO BEDTIME 02/14/17 Tamsulosin [Flomax*] 0.4 mg PO BEDTIME 02/14/17 bisacodyL [Dulcolax*] 5 mg PO DAILYPRN PRN 02/14/17 glipiZIDE [Glucotrol] 10 mg PO DAILY 02/14/17 Ciprofloxacin HCl [Cipro 500 MG Tablet] 500 mg PO BID #10 tab 02/15/17 - Past Medical/Surgical History Diabetic: Yes -: CKD -: NIDDM -: HTN -: mole removal on R eye -: knee replacement x2 -: circumcision Psychosocial/ Personal History: Patient is . - Family History Mother -: Lung disease - Social History Smoking Status: Former smoker Alcohol use: No CD- Drugs: No Caffeine use: Yes Place of Residence: Home Review of Systems 10-point ROS is otherwise unremarkable Genitourinary: Dysuria, Frequency, Urgency Physical Examination - Physical Exam General: Alert, In no apparent distress, Oriented x3 HEENT: Atraumatic, PERRLA, EOMI, Sclerae nonicteric Neck: Supple, 2+ carotid pulse no bruit, No LAD, Without JVD or thyroid abnormality Respiratory: Clear to auscultation bilaterally, Normal air movement Cardiovascular: Regular rate/rhythm, Normal S1 S2 Gastrointestinal: Normal bowel sounds, No tenderness Musculoskeletal: No tenderness Integumentary: No rashes Neurological: Normal gait, Normal speech, Normal strength at 5/5 x4 extr, Normal tone, Normal affect - Studies Laboratory Data (last 24 hrs) 02/19/22 23:07: Lipase Cancelled 02/19/22 21:35: PT 13.9 H, INR 1.26 02/19/22 21:35: WBC 15.3 H, Hgb 10.6 L, Hct 32.7 L, Plt Count 403 02/19/22 21:35: Sodium 133 L, Potassium 3.8, BUN 22 H, Creatinine 1.28, Glucose 155 H, Magnesium 1.9, Total Bilirubin 0.4, AST 25, ALT 19, Alkaline Phosphatase 157 H, Lipase 152 Assessment and Plan - Problems (Diagnosis) (1) UTI (urinary tract infection) Current Visit: Yes Status: Acute Qualifiers: Urinary tract infection type: acute cystitis Hematuria presence: with hematuria Qualified Code(s): N30.01 - Acute cystitis with hematuria (2) Diabetes mellitus Current Visit: Yes Status: Chronic Qualifiers: Diabetes mellitus type: type 2 Diabetes mellitus alf insulin use: without intermediate accountant use Diabetes mellitus complication status: with kidney complications Diabetes mellitus complication detail: with chronic kidney disease Chronic kidney disease stage: stage 3 (moderate) Chronic kidney disease stage 3 subtype: stage 3a (GFR 45-59) Qualified Code(s): E11.22 - Type 2 diabetes mellitus with diabetic chronic kidney disease; N18.31 - Chronic kidney disease, stage 3a (3) HTN (hypertension) Current Visit: No Status: Chronic Qualifiers: Hypertension type: primary hypertension Qualified Code(s): I10 - Essential (primary) hypertension (4) AMS (altered mental status) Current Visit: Yes Status: Resolved Qualifiers: Altered mental status type: unspecified Qualified Code(s): R41.82 - Altered mental status, unspecified (5) Cholelithiasis without cholecystitis Current Visit: Yes Status: Acute - Plan -Initially flagged sepsis with fever, incr RR, and AMS, but have resolved. Will cont IVF -WBC 15, procal 0.33. Trend. Urine positive for UTI. Given meropenem and vanc for staph coverage in the ED. Patient has a history of surgery and infections of R knee. Xray negative. Patient denies pain. Knee does not appear infected. -urine and blood cultures sent. Patient admitted in 2017 for similar symptoms. Urine and blood culture from then negative. -Type 2 diabetes non insulin dependent- diabetic diet, ACHS accu checks, mild sliding scale insulin -CT abd/pelv was done in ED to r/o any other source of infection. Revealed cholelithiasis without obstruction or cholecystitis. Patient denies abdominal pain. -Lovenox for VTE ppx Discharge Plan: Home Plan to discharge in: 48 Hours - Advance Directives Does patient have a Living Will: Yes Does patient have a Durable POA for Healthcare: Yes - Code Status/Comfort Care Code Status Assessed: Yes (Full) Critical Care: No Time Spent Managing Pts Care (In Minutes): 70
[2022-02-20] MEDS ORDERED: VANCOMYCIN 1 GM in NA CHLORIDE 0.9% 250 ML IVPB ONE (02:00)
[2022-02-20 03:43] LABS: Absolute Lymphocytes (CBC) 1.1 K/uL (0.7-4.9); Hematocrit 31.2 % (39.6-49.0); Lymphocytes % 6.3 % (15.3-44.8); MPV 7.1 fL (7.6-11.3); RBC Red Blood Cell Count 3.94 M/uL (4.33-5.43)
[2022-02-20 03:58] LABS: Magnesium 1.9 mg/dL (1.8-2.4); Phosphorus 3.3 mg/dL (2.5-4.9); Potassium 4.5 mmol/L (3.5-5.1)
[2022-02-20] MEDS: INSULIN -REGULAR HUMAN 50 UNIT/0.5 ML ML SQ SCH ×4 (07:30→21:00)
[2022-02-20] MEDS: Meropenem 1,000 MG in NA CHLORIDE 0.9% 100 ML IV SCH ×2 (09:00→21:11)
[2022-02-20] MEDS: ENOXAPARIN 40 MG/0.4 ML SQ SCH (09:00)
[2022-02-20] MEDS ORDERED: NA CHLORIDE 0.9% 100 ML IV ONE (10:47)
[2022-02-20] MEDS ORDERED: Meropenem 1000 MG/VIAL IV ONE (10:47)
[2022-02-20] MEDS ORDERED: ENOXAPARIN 40 MG/0.4 ML SQ ONE (10:47)
--- NOTE | 2022-02-20 10:50 | EKG ---
Test Date: 2022-02-19 Test Time: 22:17:06 Kettle Cleaner: JUDE MEASUREMENT RESULTS: Intervals: Rate: 82 HI: 138 QRSD: 94 QT: 410 QTc: 479 [place]: P: 76 HI: 138 QRS: 76 T: 55 INTERPRETIVE STATEMENTS: Normal sinus rhythm Cannot rule out Anterior infarct, age undetermined Abnormal ECG Compared to ECG 12/21/2021 14:29:59 Myocardial infarct finding now present Electronically Signed On 02-20-22 10:49:22 CDT by Flo Crane
[2022-02-20 11:52] VITALS: BMI 34.8
[2022-02-20] MEDS ORDERED: D50W 25 GM/50 ML SYRINGE IV PRN (16:57)
[2022-02-20] MEDS ORDERED: GLUCAGON 1 MG/VIAL IM PRN (16:57)
--- NOTE | 2022-02-20 16:57 | P.PN ---
Date of Service: 02/20/22 Patient is more awake and alert. Noted hypoglycemia today. He takes glipizide for diabetes. Diagnosis: Acute metabolic encephalopathy DM with hypoglycemia Acute cystitis History of right knee replacement complicated with infection. Plan: Continue IV meropenem and vancomycin Start D5 infusion for hypoglycemia Hold glipizide Monitor glucose every hour Hypoglycemia protocol. Follow cultures.
[2022-02-20] MEDS ORDERED: D10W 125 ML IV PRN (17:15)
[2022-02-20] MEDS: D5 0.45 NS 1,000 ML IV SCH (17:31)
--- NOTE | 2022-02-20 18:18 | RAD REPORT ---
EXAM DESCRIPTION: Chest Single View RadLex: XR CHEST 1 VIEW CLINICAL HISTORY: COUGH. COMPARISON: None. TECHNIQUE: Single view AP chest radiograph(s). FINDINGS: Mild perihilar interstitial thickening. No infiltrate identified. No pleural effusion. No pneumothorax. Nonenlarged cardiomediastinal silhouette. No significant osseous abnormality. IMPRESSION: Mild perihilar interstitial thickening. No infiltrate identified. Electronically signed by: Mirtha Garrett MD 02/19/2022 10:37 PM CDT Due to temporary technical issues with the PACS/Fluency reporting system, reports are being signed by the in house radiologists without review as a courtesy to insure prompt reporting. The interpreting radiologist is fully responsible for the content of the report.
--- NOTE | 2022-02-20 18:32 | RAD REPORT ---
EXAM DESCRIPTION: Stone Protocol CLINICAL HISTORY: 76 years Male PAIN TECHNIQUE: Non contrast CT of the abdomen and pelvis with coronal and sagittal reformats. All CT sca ns at this facility use dose modulation, iterative reconstruction, and/or weight based dosing when ap propriate to reduce radiation dose to as low as reasonably achievable. COMPARISON: 12/21/2021 FINDINGS: Lower chest: Unchanged 5 mm right lower lobe pulmonary nodule. Abdomen/Pelvis: Liver: Unremarkable. Gallbladder: Small layering stones with mild gallbladder wall thickening. Pancreas: Within normal limits. Spleen: Within normal limits. Kidney: No stone or hydronephrosis. Nonspecific mild bilateral perinephric stranding. Adrenal glands: Within normal limits. Vascular structures: Atherosclerosis of the aorta and its major branches. Bowel: Stool throughout the colon. No bowel distention. Appendix: Not seen. Peritoneum: No free fluid or free air. Lymph Nodes: No lymphadenopathy. Reproductive: Prostate is prominent. Urinary bladder: Distended. Osseous structures: Multilevel degenerative changes. Soft tissues: Unremarkable. IMPRESSION: Small layering gallstones with mild gallbladder wall thickening. Recommend right upper q uadrant sonogram for further evaluation. Electronically signed by: Leonidas Rueda MD 02/20/2022 1:51 AM CDT Due to temporary technical issues with the PACS/Fluency reporting system, reports are being signed by the in house radiologists without review as a courtesy to insure prompt reporting. The interpreting radiologist is fully responsible for the content of the report.
--- NOTE | 2022-02-20 18:55 | RAD REPORT ---
EXAM DESCRIPTION: US Abdomen Limited, Right Upper Quadrant CLINICAL HISTORY: Abd pain TECHNIQUE: Real-time ultrasound of the right upper quadrant with image documentation. COMPARISON: Abdomen pelvis CT dated 02/20/2022 FINDINGS: Liver: Unremarkable as visualized. Gallbladder: Small layering gallstones. No gallbladder wall thickening or pericholecystic fluid. Common bile duct: The common bile duct measures 4 mm in diameter. No stones. No dilation. IMPRESSION: Cholelithiasis without secondary signs to suggest acute cholecystitis. Electronically signed by: eN Patel MD 02/20/2022 3:18 AM CDT Due to temporary technical issues with the PACS/Fluency reporting system, reports are being signed by the in house radiologists without review as a courtesy to insure prompt reporting. The interpreting radiologist is fully responsible for the content of the report.
--- NOTE | 2022-02-20 19:54 | RAD REPORT ---
EXAM DESCRIPTION: Knee Right 3 View CLINICAL HISTORY: PAIN COMPARISON: None. FINDINGS: 3 views of the right knee. Long stem revision knee prosthesis. Bony hypertrophic remodelin g along the medial femoral condyle and lateral tibial plateau.. Osteopenia. Atherosclerotic vascular calcification. Mild soft tissue edema. Knee joint effusion. IMPRESSION: 1. No acute fracture. 2. Right knee prosthesis without definite abnormality. 3. Knee joint effusion. Electronically signed by: Pancho Cole 02/20/2022 12:01 AM CDT Due to temporary technical issues with the PACS/Fluency reporting system, reports are being signed by the in house radiologists without review as a courtesy to insure prompt reporting. The interpreting radiologist is fully responsible for the content of the report.
[2022-02-20] MEDS: VANCOMYCIN 2 GM in NA CHLORIDE 0.9% 500 ML IVPB SCH (22:57)
[2022-02-20 23:10] VITALS: O2SAT 95
[2022-02-21] MEDS ORDERED: VANCOMYCIN 2 GM in NA CHLORIDE 0.9% 500 ML IVPB SCH (02:00)
[2022-02-21 05:49] LABS: Absolute Lymphocytes (CBC) 0.9 K/uL (0.7-4.9); Hematocrit 28.3 % (39.6-49.0); Lymphocytes % 7.9 % (15.3-44.8); MPV 7.6 fL (7.6-11.3); RBC Red Blood Cell Count 3.58 M/uL (4.33-5.43)
[2022-02-21] MEDS: D5 0.45 NS 1,000 ML IV SCH ×3 (05:49→21:00)
[2022-02-21 05:58] LABS: BUN Blood Urea Nitrogen 19 mg/dL (7-18); Bicarbonate 22 mmol/L (21-32); Glucose Level 219 mg/dL (74-106); Magnesium 1.8 mg/dL (1.8-2.4); Phosphorus 2.2 mg/dL (2.5-4.9); Potassium 3.4 mmol/L (3.5-5.1); Sodium Level 137 mmol/L (136-145)
[2022-02-21] MEDS: INSULIN -REGULAR HUMAN 50 UNIT/0.5 ML ML SQ SCH ×4 (07:30→21:00)
[2022-02-21] MEDS: ENOXAPARIN 40 MG/0.4 ML SQ SCH (09:53)
[2022-02-21] MEDS: Meropenem 1,000 MG in NA CHLORIDE 0.9% 100 ML IV SCH ×2 (09:53→20:59)
--- NOTE | 2022-02-21 11:47 | P.PN ---
Subjective Date of Service: 02/21/22 Chief Complaint: UTI, AMS No new complaints today. He has been afebrile, eating well and ambulating. Physical Examination - Vital Signs Temperature: 97.3 F Blood Pressure: 132/65 Pulse: 81 Respirations: 18 Pulse Ox (%): 97 Assessment And Plan - Current Problems (Diagnosis) (1) Metabolic encephalopathy Current Visit: Yes Status: Acute (2) Acute cystitis without hematuria Current Visit: Yes Status: Acute (3) Chronic infection of right knee Current Visit: Yes Status: Acute (4) Diabetes mellitus Current Visit: Yes Status: Chronic Qualifiers: Diabetes mellitus type: type 2 Diabetes mellitus skilled nursing insulin use: without laborer marine terminal use Diabetes mellitus complication status: with kidney complications Diabetes mellitus complication detail: with chronic kidney disease Chronic kidney disease stage: stage 3 (moderate) Chronic kidney disease stage 3 subtype: stage 3a (GFR 45-59) Qualified Code(s): E11.22 - Type 2 diabetes mellitus with diabetic chronic kidney disease; N18.31 - Chronic kidney disease, stage 3a (5) Sepsis Onset Date: 02/15/17 Current Visit: No Status: Acute Qualifiers: Sepsis type: sepsis due to unspecified organism Qualified Code(s): A41.9 - Sepsis, unspecified organism - Plan Patient with prolonged antibiotic therapy for chronic right knee infection. High risk for antibiotic resistance. Continue IV meropenem. Vancomycin for history of right knee staph infection. Will transition to oral Keflex on discharge. Urine culture is growing gram-negative rods and alpha strep. Organism identification sensitivities pending. Hold glipizide given an episode of hypoglycemia. Manage blood sugar with insulin sliding scale. Change IV fluid to normal saline.
[2022-02-21] MEDS ORDERED: BISACODYL E.C. 5 MG TAB PO PRN (11:48)
[2022-02-21] MEDS: GABAPENTIN 300 MG CAP PO SCH ×2 (13:44→16:34)
[2022-02-21] MEDS ORDERED: ATORVASTATIN 40 MG TAB PO SCH (21:00)
[2022-02-21] MEDS: VANCOMYCIN 2 GM in NA CHLORIDE 0.9% 500 ML IVPB SCH (23:21)
[2022-02-22 05:34] LABS: Absolute Lymphocytes (CBC) 0.8 K/uL (0.7-4.9); Hematocrit 28.2 % (39.6-49.0); Lymphocytes % 10.2 % (15.3-44.8); MPV 7.3 fL (7.6-11.3)
[2022-02-22 05:55] LABS: BUN Blood Urea Nitrogen 11 mg/dL (7-18); Bicarbonate 24 mmol/L (21-32); Glucose Level 160 mg/dL (74-106); Magnesium 1.6 mg/dL (1.8-2.4); Potassium 3.6 mmol/L (3.5-5.1); Sodium Level 138 mmol/L (136-145)
[2022-02-22] MEDS: INSULIN -REGULAR HUMAN 50 UNIT/0.5 ML ML SQ SCH (07:30)
[2022-02-22] MEDS: GABAPENTIN 300 MG CAP PO SCH (08:00)
[2022-02-22] MEDS: Meropenem 1,000 MG in NA CHLORIDE 0.9% 100 ML IV SCH (08:21)
[2022-02-22] MEDS: ENOXAPARIN 40 MG/0.4 ML SQ SCH (08:24)
[2022-02-22 08:41] VITALS: BP 144/71; TEMP 97.6
[2022-02-22] MEDS ORDERED: ASPIRIN EC 81 MG TAB PO SCH (09:00)
[2022-02-22] MEDS ORDERED: GABAPENTIN 300 MG CAP PO SCH (09:00)
[2022-02-22] MEDS: D5 0.45 NS 1,000 ML IV SCH (09:00)
[2022-02-22] MEDS ORDERED: D10W 125 ML IV PRN (11:58)
--- NOTE | 2022-02-22 12:53 | P.DS ---
Admission Date: 02/20/22 Discharge Date: 02/22/22 Disposition: ROUTINE DISCHARGE Discharge Condition: FAIR Reason for Admission: UTI, AMS - Problems (1) Metabolic encephalopathy Current Visit: Yes Status: Acute (2) Acute cystitis without hematuria Current Visit: Yes Status: Acute (3) Chronic infection of right knee Current Visit: Yes Status: Acute (4) Diabetes mellitus Current Visit: Yes Status: Chronic Qualifiers: Diabetes mellitus type: type 2 Diabetes mellitus penitentiary insulin use: without buttermaker helper use Diabetes mellitus complication status: with kidney complications Diabetes mellitus complication detail: with chronic kidney disease Chronic kidney disease stage: stage 3 (moderate) Chronic kidney disease stage 3 subtype: stage 3a (GFR 45-59) Qualified Code(s): E11.22 - Type 2 diabetes mellitus with diabetic chronic kidney disease; N18.31 - Chronic kidney disease, stage 3a (5) Sepsis Onset Date: 02/15/17 Current Visit: No Status: Acute Qualifiers: Sepsis type: sepsis due to unspecified organism Qualified Code(s): A41.9 - Sepsis, unspecified organism Brief History of Present Illness: Patient is a 76-year-old male with past medical history of type 2 diabetes [id number], hypertension, CKD 3 who presented to the ED via EMS with family stating he was experiencing alteration in mental status. They stated that he could not recall the date or year when he is typically oriented x 4. Patient was only complaining of dysuria and frequency. Patient was initially febrile with a temperature of 101.3 Fahrenheit and RR of 25. Labs significant for Pro-Boris 0.33, WBC 15, urine positive for UTI. He was given meropenem, vancomycin, Tylenol, and sepsis fluids in the ED. Patient admitted for further management. Hospital Course: Patient admitted to the medical floor and started on aggressive antibiotic therapy including IV meropenem and IV vancomycin. History of prolonged antibiotic therapy for chronic right knee infection with concern for antibiotic resistance. Vancomycin wa for history of right knee staph infection. Urine culture grew Pseudomonas sensitive to ciprofloxacin. Patient's altered mental status resolved with treatment Hold glipizide given an episode of hypoglycemia. Managed blood sugar with insulin sliding scale. Patient has improved to baseline. He is discharged with oral ciprofloxacin for UTI. He will continue his chronic antibiotic therapy for right knee infection. Vital Signs/Physical Exam: Temp Pulse Resp BP Pulse Ox 97.6 F 68 16 144/71 H 96 02/22/22 08:00 02/22/22 08:00 02/22/22 08:00 02/22/22 08:00 02/22/22 08:00 General: Alert, In no apparent distress, Oriented x3 HEENT: Mucous membr. moist/pink Neck: JVD not distended Respiratory: Clear to auscultation bilaterally, Normal air movement Cardiovascular: No edema, Regular rate/rhythm, Normal S1 S2 Gastrointestinal: Soft and benign, Non-distended Musculoskeletal: Swelling (Right knee) Integumentary: No rashes Neurological: Normal speech, Normal strength at 5/5 x4 extr, Cranial nerves 3-12 intact Laboratory Data at Discharge: WBC 7.6 K/uL (4.3-10.9) D 02/22/22 05:07 Hgb 9.4 g/dL (13.6-17.9) L 02/22/22 05:07 Hct 28.2 % (39.6-49.0) L 02/22/22 05:07 Plt Count 397 K/uL (152-406) 02/22/22 05:07 PT 13.9 SECONDS (9.5-12.5) H 02/19/22 21:35 INR 1.26 02/19/22 21:35 Sodium 138 mmol/L (136-145) 02/22/22 05:07 Potassium 3.6 mmol/L (3.5-5.1) 02/22/22 05:07 BUN 11 mg/dL (7-18) 02/22/22 05:07 Creatinine 0.71 mg/dL (0.55-1.3) 02/22/22 05:07 Glucose 160 mg/dL (74-106) H 02/22/22 05:07 Phosphorus 3.0 mg/dL (2.5-4.9) 02/22/22 05:07 Magnesium 1.6 mg/dL (1.8-2.4) L 02/22/22 05:07 Total Bilirubin 0.4 mg/dL (0.2-1.0) 02/19/22 21:35 AST 25 U/L (15-37) 02/19/22 21:35 ALT 19 U/L (12-78) 02/19/22 21:35 Alkaline Phosphatase 157 U/L (45-117) H 02/19/22 21:35 Lipase Cancelled 02/19/22 23:07 Home Medications: Losartan Potassium 100 mg PO DAILY 02/14/17 Metformin HCl 850 mg PO TID 02/14/17 Simvastatin 80 mg PO BEDTIME 02/14/17 bisacodyL [Dulcolax*] 5 mg PO DAILYPRN PRN 02/14/17 glipiZIDE [Glucotrol] 10 mg PO BID* 02/14/17 Amlodipine [Norvasc*] 5 mg PO DAILY 02/20/22 Aspirin [Aspirin EC 81 MG] 81 mg PO DAILY 02/20/22 Cefadroxil Hydrate [Duricef] 500 mg PO TID* 02/20/22 Cephalexin 500 mg PO BID 02/20/22 Empagliflozin [Jardiance] 0.5 mg PO DAILY 02/20/22 Gabapentin 300 mg PO TID* 02/20/22 Ciprofloxacin HCl [Cipro 500 MG Tablet] 500 mg PO BID #20 tab 02/22/22 New Medications: Ciprofloxacin HCl [Cipro 500 MG Tablet] 500 mg PO BID #20 tab Followup: Unknown,U [Primary Care Provider] - 1-2 Weeks Time spent managing pt's care (in minutes): 36
== END 2022-02-22 12:30 | disposition home or self-care (01) | DRG 871 ==
LOC: ER 20:41 → ERHOLD 02-20 00:14 → 2ND 02-20 10:58
PROVIDERS: ADMIT Internal Medicine; ATTEND Internal Medicine
DX: A41.9 Sepsis, unspecified organism (principal); G93.41 Metabolic encephalopathy; N30.00 Acute cystitis without hematuria; T84.53XA Infection and inflammatory reaction due to internal right knee prosthesis, initial encounter; R65.20 Severe sepsis without septic shock; B96.5 Pseudomonas (aeruginosa) (mallei) (pseudomallei) as the cause of diseases classified elsewhere; I12.9 Hypertensive chronic kidney disease with stage 1 through stage 4 chronic kidney disease, or unspecified chronic kidney disease; E11.22 Type 2 diabetes mellitus with diabetic chronic kidney disease; N18.31 Chronic kidney disease, stage 3a; E11.649 Type 2 diabetes mellitus with hypoglycemia without coma; K80.20 Calculus of gallbladder without cholecystitis without obstruction; Z87.891 Personal history of nicotine dependence; Z96.651 Presence of right artificial knee joint; Z20.822 Contact with and (suspected) exposure to COVID-19
CPT/HCPCS: 0240U; 36415; 71045; 74176; 76377; 76705; 80048; 80076; 80202; 81003; 81015; 82947; 83605; 83690; 83735; 83880; 84100; 84145; 84484; 85025; 85610; 87040; 87077; 87086; 87088; 87186; 93005; 96365; 96366; 96375; 99284; J1650; J2185; J3370; J3490; J7030; J7040; J7050; J7799

== ENCOUNTER 2024-07-31 12:47 | Emergency (ER) | payer OTHER ==
[2024-07-31 13:50] LABS: Absolute Basophils 0.1 K/uL (0-0.5); Absolute Eosinophils 0.3 K/uL (0-0.5); Absolute Lymphocytes (CBC) 0.6 K/uL (0.7-4.9); Absolute Monocytes 0.6 K/uL (0.1-1.3); Absolute Neutrophil 7.6 K/uL (1.8-8.0); Eosinophils % 2.9 % (0-4.4); Hematocrit 36.3 % (39.6-49.0); Lymphocytes % 6.8 % (15.3-44.8); MCHC 32.9 g/dL (32.0-36.0); MCV 84.9 fL (80-100); MPV 7.7 fL (7.6-11.3); Monocytes % 6.9 % (3.3-12.3); Neutrophils % 82.4 % (41.7-73.7); Platelets 210 thou/uL (152-406); RBC Red Blood Cell Count 4.27 M/uL (4.33-5.43); Red Cell Distribution Width 16.1 % (12.1-15.2)
[2024-07-31 14:13] LABS: Albumin 3.2 g/dL (3.4-5.0); Albumin/Globulin Ratio 0.7 (1.1-1.8); Anion Gap 11.1 mEq/L (5.0-15.0); Bilirubin Total 0.4 mg/dL (0.2-1.0); Globulin 4.3 g/dL (2.3-3.5); Potassium 4.1 mEq/L (3.5-5.1); Protein, Total 7.5 g/dL (6.4-8.2); Troponin High Sensitivity 8.8 pg/mL (<58.9)
[2024-07-31 14:47] LABS: Specific Gravity 1.029 (1.005-1.030); Urine Bilirubin NEGATIVE (Negative); Urine Blood Negative (Negative); Urine Clarity Clear (Clear); Urine Color Light-Yellow (Yellow); Urine Glucose 4+ (Over) (Negative); Urine Ketones NEGATIVE (Negative); Urine Microscopic Reflex YN NO UMIC; Urine Nitrite NEGATIVE (Negative); Urine Protein NEGATIVE (Negative); Urine Urobilinogen Normal (Normal)
--- NOTE | 2024-07-31 15:13 | RAD REPORT ---
EXAMINATION: CT ABDOMEN AND PELVIS WITH CONTRAST CLINICAL INDICATION: Abdominal pain TECHNIQUE: CT abdomen and pelvis was performed, after the administration of 100 cc Isovue-300.. Sagit jazz and coronal reconstructions were obtained. One or more of the following dose reduction techniques were used: Automated exposure control, adjustment of the mA and/or kV according to patien t size, and/or iterative reconstruction. Unless otherwise specified, incidental findings do not require dedicated imaging follow-up. [id number]. Oral contrast was not given which limits evaluation of b owel and appendix. COMPARISON: 2020 FINDINGS: The liver, spleen, pancreas, adrenals and kidneys appear unremarkable Small gallstone. No gallbladder wall thickening There is no evidence of diverticulitis The appendix not seen. No stranding adjacent to the cecum. Moderate amount of stool throughout the colon. Spondylosis lumbar spine results in spinal stenosis. Kendy hepatis lymph node without significant change likely benign. Atherosclerosis : IMPRESSION: Moderate amount of stool within the colon Small gallstone. No evidence of cholecystitis
--- NOTE | 2024-07-31 15:25 | EDPHYS ---
Physician Documentation [facility] Name: Dion Alfonso Age: 79 yrs Sex: Male : 1945 Arrival Date: 07/31/2024 Time: 12:47 Bed 5 Private MD: ED Physician Jaspreet Rasmussen HPI: 07/31 14:58 This 79 yrs old Male presents to ER via Wheelchair with complaints of Abdominal Pain, rt Low Blood Sugar. 14:58 Patient presents to the ED with lower abdominal pain, urinary frequency. States that rt the symptoms have worsened today. There is concerns for low blood sugar, was reportedly 91, correcting. Patient was reportedly diaphoretic at that time. States that the symptoms have significantly improved. Symptoms are moderate in severity, no other aggravating or elevating factors.. Historical: - PMHx: 13:07 Diabetes - NIDDM; Hypertension; tm6 - PSHx: 13:07 Gilberto Knee replacement; tm6 - Immunization history:: Adult Immunizations up to date. - Infectious Disease History:: Denies. - Social history:: Smoking status: Patient denies any tobacco usage or history of. Patient/guardian denies using alcohol. - Family history:: not pertinent, pertinent for. - Hospitalizations: : No recent hospitalization is reported. ROS: 14:58 Constitutional: Negative for fever, chills, and weight loss, Cardiovascular: Negative rt for chest pain, palpitations, and edema, Respiratory: Negative for shortness of breath, cough, wheezing, and pleuritic chest pain, MS/Extremity: Negative for injury and deformity, Skin: Negative for injury, rash, and discoloration, 14:58 Abdomen/GI: Positive for abdominal pain, Negative for diarrhea, Exam: 14:58 Constitutional: This is a well developed, well nourished patient who is awake, alert, rt and in no acute distress. Head/Face: Normocephalic, atraumatic. Chest/axilla: Normal chest wall appearance and motion. Nontender with no deformity. No lesions are appreciated. Cardiovascular: Regular rate and rhythm with a normal S1 and S2. No gallops, murmurs, or rubs. Normal PMI, no JVD. No pulse deficits. Respiratory: Lungs have equal breath sounds bilaterally, clear to auscultation and percussion. No rales, rhonchi or wheezes noted. No increased work of breathing, no retractions or nasal flaring. MS/ Extremity: Pulses equal, no cyanosis. Neurovascular intact. Full, normal range of motion. Neuro: Awake and alert, GCS 15, oriented to person, place, time, and situation. Cranial nerves II-XII grossly intact. Motor strength 5/5 in all extremities. Sensory grossly intact. Cerebellar exam normal. Normal gait. 14:58 ECG was reviewed by the Attending Physician. 14:58 Abdomen/GI: Tenderness, fullness to the suprapubic region, no rebound, guarding, distention, Vital Signs: 13:02 Pulse 59; Resp 17; Temp 97.6(O); Pulse Ox 95% on R/A; tm6 13:15 BP 126 / 81; Pulse 52; Resp 16; Pulse Ox 99% ; ko1 15:52 BP 134 / 80; Pulse 54; Resp 16; Pulse Ox 100% ; ko1 MDM: 13:08 Patient medically screened. rt 16:24 Differential diagnosis: Kidney stone, constipation, pyelonephritis, hypoglycemia. Data rt reviewed: vital signs, nurses notes, lab test result(s), EKG, radiologic studies. Consideration of Admission/Observation Escalation of care including admission/observation considered. Symptoms improving, no acute findings on CT scan, labs are benign, stable for outpatient care.. I considered the following discharge prescriptions or medication management in the emergency department Medications were administered in the Emergency Department. See MAR. Independent interpretation of the following test(s) in the Emergency Department CT Scan: My interpretation is No ureteral stone seen on interpretation of CT scan images. Care significantly affected by the following chronic conditions: Diabetes. Counseling: I had a detailed discussion with the patient and/or guardian regarding the historical points, exam findings, and any diagnostic results supporting the discharge/admit diagnosis, lab results, radiology results, the need for outpatient follow up, to return to the emergency department if symptoms worsen or persist or if there are any questions or concerns that arise at home. Response to treatment: the patient's symptoms have mildly improved after treatment. 07/31 13:09 Order name: CBC with Diff; Complete Time: 14:50 rt 07/31 13:09 Order name: CMP; Complete Time: 14:50 rt 07/31 13:09 Order name: Lipase; Complete Time: 14:50 rt 07/31 13:09 Order name: Urinalysis w/ reflexes; Complete Time: 14:50 rt 07/31 13:09 Order name: Troponin High Sensitivity; Complete Time: 14:50 rt 07/31 13:09 Order name: CT Abd/Pelvis - IV Contrast Only; Complete Time: 15:14 rt 07/31 13:09 Order name: EKG; Complete Time: 13:10 rt 07/31 13:09 Order name: IV Saline Lock; Complete Time: 13:44 rt 07/31 13:09 Order name: Labs collected and sent; Complete Time: 13:44 rt 07/31 13:09 Order name: Accucheck; Complete Time: 13:58 rt 07/31 13:09 Order name: EKG - Nurse/Tech; Complete Time: 13:56 rt EC:58 Rate is 54 beats/min. Rhythm is regular, Sinus bradycardia with No ectopy. QRS [place] is rt Normal. HI interval is normal. QRS interval is normal. QT interval is normal. No Q waves. T waves are Normal. No ST changes noted. Interpreted by me. Administered Medications: No medications were administered Disposition Summary: 07/31/24 15:24 Discharge Ordered Notes: Location: Home rt Problem: new rt Symptoms: have improved rt Condition: Stable rt Diagnosis - Constipation rt Followup: rt - With: Private Physician - When: 2 - 3 days - Reason: Discharge Instructions: - Discharge Summary Sheet rt - Constipation, Adult rt Forms: - Medication Reconciliation Form rt - Antibiotic Education rt - Prescription Opioid Use rt - Patient Portal Instructions rt - Leadership Thank You Letter rt Prescriptions: - Lactulose 10 gram/15 mL Oral Solution - take 30 milliliters ORAL route once daily; 300 milliliter; Refills: 0, Product rt Selection Permitted Signatures: Dispatcher [email or web address] EDMS Danna Rodrigues, RN RN ko1 Jaspreet Rasmussen MD MD rt Yoan Myers RN RN tm6 Corrections: (The following items were deleted from the chart) 13:10 13:10 CBC+H.LAB.BRZ ordered. EDMS EDMS 13:10 13:10 COMPREHENSIVE METABOLIC PANEL+C.LAB.BRZ ordered. EDMS EDMS 13:10 13:10 LIPASE+C.LAB.BRZ ordered. EDMS EDMS 13:10 13:10 Urinalysis+U.LAB.BRZ ordered. EDMS EDMS 13:10 13:10 Troponin High Sensitivity+C.LAB.BRZ ordered. EDMS EDMS
--- NOTE | 2024-07-31 15:25 | ER ---
Nurse's Notes [facility] Name: Dion Alfonso Age: 79 yrs Sex: Male : 1945 Arrival Date: 07/31/2024 Time: 12:47 Bed 5 Private MD: Diagnosis: Constipation Presentation: 07/31 13:02 Chief complaint: Patient's son or daughter states: got a call saying patient was tm6 diaphoretic, weak, sweaty. Sugar was checked 91, BP was 120/63. Given some cake, BGL raised to 115. Complaining of abdominal pain and weakness, difficulty walking. recent PCP visit said possible kidney stones. Ebola Screen: Patient negative for fever greater than or equal to 101.5 degrees Fahrenheit, and additional compatible Ebola Virus Disease symptoms Patient denies exposure to infectious person. Patient denies travel to an Ebola-affected area in the 21 days before illness onset. No symptoms or risks identified at this time. Initial Sepsis Screen: Does the patient meet any 2 criteria? No. Patient's initial sepsis screen is negative. Does the patient have a suspected source of infection? No. Patient's initial sepsis screen is negative. Risk Assessment: Do you want to hurt yourself or someone else? Patient reports no desire to harm self or others. Onset of symptoms was July 31, 2024. 13:02 Method Of Arrival: Wheelchair tm6 13:02 Acuity: RG 3 tm6 13:07 Coronavirus screen: Client denies travel out of the [place] in the last 14 days. tm6 Triage Assessment: 13:07 General: Appears in no apparent distress. Behavior is calm, cooperative. Pain: tm6 Complains of pain in umbilical area Pain currently is 8 out of 10 on a pain scale. EENT: No signs and/or symptoms were reported regarding the EENT system. Neuro: Level of Consciousness is awake, alert, obeys commands, Oriented to person, place, time, situation. Cardiovascular: Patient's skin is warm and dry. Cardiovascular: Reports diaphoresis, nausea, Respiratory: Airway is patent Respiratory effort is even, unlabored, Respiratory pattern is regular, symmetrical. GI: Abdomen is round. GI: Reports lower abdominal pain, upper abdominal pain, nausea. : No signs and/or symptoms were reported regarding the genitourinary system. Derm: No signs and/or symptoms reported regarding the dermatologic system. Musculoskeletal: No signs and/or symptoms reported regarding the musculoskeletal system. Historical: - PMHx: 13:07 Diabetes - NIDDM; Hypertension; tm6 - PSHx: 13:07 Gilberto Knee replacement; tm6 - Immunization history:: Adult Immunizations up to date. - Infectious Disease History:: Denies. - Social history:: Smoking status: Patient denies any tobacco usage or history of. Patient/guardian denies using alcohol. - Family history:: not pertinent, pertinent for. - Hospitalizations: : No recent hospitalization is reported. Screenin:15 [facility] ED Fall Risk Assessment (Adult) History of falling in the last 3 months, ko1 including since admission No falls in past 3 months (0 pts) Confusion or Disorientation No (0 pts) Intoxicated or Sedated No (0 pts) Impaired Gait No (0 pts) Mobility Assist Device Used No (0 pt) Altered Elimination No (0 pt) Score/Fall Risk Level 0 - 2 = Low Risk Oriented to surroundings, Maintained a safe environment, Educated pt \T\ family on fall prevention, incl call for assistance when getting out of bed, Assessed \T\ reinforced patient's understanding of fall precautions, Provided non-skid footwear, Hourly rounding (assess needs \T\ fall precautionary measures) done. Abuse screen: Denies threats or abuse. Denies injuries from another. Nutritional screening: No deficits noted. Tuberculosis screening: No symptoms or risk factors identified. Assessment: 13:15 General: Appears in no apparent distress. Behavior is calm, cooperative, appropriate ko1 for age. Pain: Complains of pain in abdomen and umbilical area. Neuro: No deficits noted. Cardiovascular: No deficits noted. Respiratory: No deficits noted. GI: Bowel sounds present X 4 quads. Abd is soft and non tender X 4 quads. : No deficits noted. EENT: No deficits noted. Derm: No deficits noted. Musculoskeletal: No deficits noted. Vital Signs: 13:02 Pulse 59; Resp 17; Temp 97.6(O); Pulse Ox 95% on R/A; tm6 13:15 BP 126 / 81; Pulse 52; Resp 16; Pulse Ox 99% ; ko1 15:52 BP 134 / 80; Pulse 54; Resp 16; Pulse Ox 100% ; ko1 ED Course: 12:48 Patient arrived in ED. ra3 12:51 Jaspreet Rasmussen MD is Attending Physician. rt 13:06 Triage completed. tm6 13:06 Arm band placed on right wrist. tm6 13:15 Patient has correct armband on for positive identification. Bed in low position. Call ko1 light in reach. Side rails up X2. Provided Education on: labs. Client placed on continuous cardiac and pulse oximetry monitoring. NIBP monitoring applied. telemetry monitor on. Door closed. Noise minimized. Lights dimmed. Warm blanket given. Pillow given. 13:15 No provider procedures requiring assistance completed. ko1 13:33 Danna Rodrigues, RN is Primary Nurse. ko1 13:40 Initial lab(s) drawn, by me, sent to lab. EKG done, by ED staff, reviewed by Jaspreet Rasmussen MD. Inserted saline lock: 20 gauge in right antecubital area, using aseptic technique. Blood collected. Flushed with 10 mL NS. 13:44 Troponin High Sensitivity Sent. ko1 13:44 CBC with Diff Sent. ko1 13:44 CMP Sent. ko1 13:44 Lipase Sent. ko1 14:00 Assisted with urinal. ko1 14:08 Radiology exam delayed due to lab results not completed at this time. (BUN/Creatinine). jg6 14:50 CT Abd/Pelvis - IV Contrast Only In Process Unspecified. EDMS 15:34 IV discontinued, intact, bleeding controlled, No redness/swelling at site. Pressure ko1 dressing applied. Administered Medications: No medications were administered Medication: 13:15 VIS not applicable for this client. ko1 Outcome: 15:24 Discharge ordered by MD. rt 15:52 Discharged to home ambulatory, with family, ko1 15:52 Condition: stable 15:52 Discharge instructions given to patient, family, Instructed on discharge instructions, follow up and referral plans. medication usage, Demonstrated understanding of instructions, follow-up care, medications, Prescriptions given X 1, 15:53 Patient left the ED. ko1 Signatures: Dispatcher [employer] EDMS Sammy Charlotte jg6 Danna Rodrigues, RN RN ko1 Jaspreet Rasmussen MD MD rt Yoan Myers RN RN tm6 Nimco Thakkar ra3
[2024-07-31 18:45] VITALS: TEMP 97.6
[2024-07-31 18:47] VITALS: BP 134/80; O2SAT 100
--- NOTE | 2024-08-06 12:17 | EKG ---
Test Date: 2024-07-31 Test Time: 13:52:14 Human Resources Services Specialist: JOE MEASUREMENT RESULTS: Intervals: Rate: 54 GA: 148 QRSD: 92 QT: 496 QTc: 470 [place]: P: 22 GA: 148 QRS: 75 T: 75 INTERPRETIVE STATEMENTS: Sinus bradycardia Otherwise normal ECG Compared to ECG 02/19/2022 22:17:06 Sinus rhythm no longer present Myocardial infarct finding no longer present Electronically Signed On 08-06-24 12:01:14 CDT by Oniel Mello
== END 2024-07-31 15:53 | disposition home or self-care (01) ==
LOC: ER 12:47
DX: K59.00 Constipation, unspecified (principal); E11.9 Type 2 diabetes mellitus without complications; I10 Essential (primary) hypertension
CPT/HCPCS: 93005; 85025; 36415; 81003; 84484; 83690; 80053; 74177; Q9967; 99284